=== PATIENT | female | born 1955 | race Hispanic/Latino ===

== ENCOUNTER 2017-11-04 07:06 | Observation (INO) | payer MEDICARE, OTHER ==
[2017-11-04 07:07] VITALS: BMI 40.0
[2017-11-04 08:16] LABS: BASO # 0.05 K/mm3 (0.0-2.0); BASO % 0.7 % (0.0-3.0); EOS # 0.2 (0.0-0.7); EOS % 2.1 % (1.5-5.0); GRAN # 3.77 (1.4-6.5); GRAN % 50.5 % (50.0-68.0); HEMOGLOBIN 9.7 g/dL (12.0-16.0); LYMPH # 3.1 (1.2-3.4); LYMPH % 41.3 % (22.0-35.0); MEAN CELL VOLUME 89.8 fl (80.0-105.0); MEAN CORPUSCULAR HEMOGLOBIN 26.9 pg (25.0-35.0); MEAN CORPUSCULAR HGB CONC 29.9 g/dl (31.0-37.0); MEAN PLATELET VOLUME 8.6 fl (7.0-11.0); MONO # 0.4 (0.1-0.6); MONO % 5.4 % (1.0-6.0); RBC 3.61 10^6/uL (3.5-6.1); RED CELL DISTRIBUTION WIDTH 15.7 % (11.5-14.5); WHITE BLOOD COUNT 7.5 10^3/ul (4.5-11.0)
[2017-11-04 08:35] LABS: ALT/SGPT 30 U/L (7-56); AST/SGOT 21 U/L (14-36); BLOOD UREA NITROGEN 16 mg/dL (7-21); CALCIUM 9.2 mg/dL (8.4-10.5); GFR AFRICAN-AMERICAN > 60; GFR NON-AFRICAN AMERICAN 56
--- NOTE | 2017-11-04 08:41 | RAD ---
HISTORY: chest pain COMPARISON: Portable chest 03/21/2015. FINDINGS: LUNGS: Limited patchy density has developed at the right base without silhouetting the right heart border or the right hemidiaphragm. No interval left-sided infiltrate. PLEURA: No significant pleural effusion identified, no pneumothorax apparent. CARDIOVASCULAR: Cardiac silhouette appears prominent. Frontal technique magnifies true size though cardiomegaly is not completely excluded. No definite pulmonary vascular derangement appreciable. No significant change in cardiac appearance. OSSEOUS STRUCTURES: No significant abnormalities. VISUALIZED UPPER ABDOMEN: Normal. OTHER FINDINGS: None. IMPRESSION: Limited patchy infiltrate right base with remaining lung dalal clear. Stable probable mild cardiomegaly.
[2017-11-04 08:44] LABS: B-TYPE NATRIURETIC PEPTIDE 334 pg/mL (0-450); TROPONIN I 0.02 ng/mL
[2017-11-04] MEDS ORDERED: Alum-Mag Hydrox-Simethicone Susp (30 mL) PO STA (09:26)
[2017-11-04] MEDS ORDERED: Iohexol 350 MG/100 ML VIAL ONE (11:53)
--- NOTE | 2017-11-04 12:31 | CT ---
PROCEDURE: CT Abdomen and Pelvis with contrast HISTORY: upper abdominal pain COMPARISON: None. TECHNIQUE: Following the intravenous administration of iodinated contrast material, a CT examination of the abdomen and pelvis performed from the domes of the diaphragms to the symphysis pubis with reformatted datasets provided not only axial but also sagittal and coronal planes. Oral contrast was not administered as per referring physician request. Contrast dose: Omnipaque 350, 100 cc. Radiation dose: Total exam DLP = 911.49 mGy-cm. This CT exam was performed using one or more of the following dose reduction techniques: Automated exposure control, adjustment of the mA and/or kV according to patient size, and/or use of iterative reconstruction technique. FINDINGS: LOWER THORAX: Limited linear atelectasis or fibrosis left base with remainder remarkable only for cardiomegaly. . LIVER: Diffuse hepatic lucency is appreciate with hepatic steatosis. No intrahepatic biliary dilatation or definite delete hepatic mass evident. GALLBLADDER AND BILE DUCTS: Unremarkable. PANCREAS: Unremarkable. No gross lesion or ductal dilatation. SPLEEN: Unremarkable. ADRENALS: Unremarkable. No mass. KIDNEYS AND URETERS: Unremarkable. No hydronephrosis. No solid mass. VASCULATURE: Unremarkable. No aortic aneurysm. BOWEL: Limited sigmoid diverticular changes, nonacute. No obstruction. No gross mural thickening. APPENDIX: Normal appendix. PERITONEUM: Unremarkable. No free fluid. No free air. LYMPH NODES: Unremarkable. No enlarged lymph nodes. BLADDER: Unremarkable. REPRODUCTIVE: Unremarkable. BONES: No acute fracture. OTHER FINDINGS: None. IMPRESSION: Hepatic steatosis. Minimal sigmoid diverticulosis without acute changes.
[2017-11-04 14:52] VITALS: RESP 20
--- NOTE | 2017-11-04 18:35 | ED PDOC ---
Arrival/HPI - General Chief Complaint: Chest Pain Time Seen by Provider: 11/04/17 07:18 Historian: Patient - History of Present Illness Narrative History of Present Illness (Text): 11/04/17 7:15 62 year old female, with past medical history of 9 cardiac stents, presents to the Emergency department complaining of chest pain since 3:45am this morning. Patient informs taking 81mg aspiring and nitroglycerin with little improvement to her symptoms. Patient denies any recent cardiac work-up. Patient denies any fever, chills, nausea, vomiting, diarrhea, abdominal pain, shortness of breath, trauma or any other complaints. PMD: Time/Duration: 4-6 hours Symptom Onset: Gradual Symptom Course: Unchanged Quality: Aching Activities at Onset: Sleeping Context: Home Past Medical History - Provider Review Nursing Documentation Reviewed: Yes - Infectious Disease Hx of Infectious Diseases: None - Tetanus Immunization Tetanus Immunization: Unknown - Reproductive Menopause: Yes - Cardiac Hx Cardiac Disorders: Yes Hx Angina: Yes Hx Congestive Heart Failure: Yes (03-21-15) Hx Peripheral Edema: Yes - Pulmonary Hx Respiratory Disorders: Yes Hx Bronchitis: Yes - Neurological Hx Neurological Disorder: No - HEENT Hx HEENT Disorder: Yes (WEARS RX GLASSES) - Renal Hx Renal Disorder: No - Endocrine/Metabolic Hx Endocrine Disorders: No - Hematological/Oncological Hx Blood Disorders: Yes Hx Anemia: Yes - Integumentary Hx Dermatological Disorder: No - Musculoskeletal/Rheumatological Hx Falls: Yes - Gastrointestinal Hx Gastrointestinal Disorders: Yes Hx Gastroesophageal Reflux: Yes Other/Comment: obesity - Genitourinary/Gynecological Hx Genitourinary Disorders: No - Psychiatric Hx Psychophysiologic Disorder: Yes (SMOKED CIGARETTES) Hx Anxiety: Yes Hx Bipolar Disorder: No Hx Depression: Yes Hx Emotional Abuse: No Hx Hallucinations: No Hx Panic Disorder: Yes Hx Post Traumatic Stress Disorder: No Hx Psychosis: No Hx Physical Abuse: No Hx Schizophrenia: No Hx Sexual Abuse: No Hx Substance Use: No - Surgical History Hx Cardiac Catheterization: Yes Hx Coronary Stent: Yes (8 stents) Other/Comment: ex lap, colonoscopy, endo - Anesthesia Hx Anesthesia: Yes Hx Anesthesia Reactions: No Hx Malignant Hyperthermia: No - Suicidal Assessment Plan: No Family/Social History - Physician Review Nursing Documentation Reviewed: Yes Family/Social History: No Known Family HX Smoking Status: Former Smoker Hx Alcohol Use: No Hx Substance Use: No Hx Substance Use Treatment: No Allergies/Home Meds Allergies/Adverse Reactions: Allergies No Known Allergies Allergy (Verified 11/04/17 07:13) Home Medications: Home Meds Medication Instructions Recorded Confirmed Acetaminophen [Tylenol] 650 mg PO PRN PRN 07/29/14 11/04/17 [id number] [Diltiazem HCl] 30 mg PO QID 02/06/15 11/04/17 Pantoprazole Sodium [Protonix] 40 mg PO BID 03/25/15 11/04/17 Tiotropium [Spiriva] 18 mcg IH DAILY 03/25/15 11/04/17 Aspirin [Ecotrin] 81 mg PO DAILY 11/04/17 11/04/17 Clonazepam [Klonopin] 1 mg PO QAM 11/04/17 11/04/17 Clonazepam [Klonopin] 3 mg PO HS 11/04/17 11/04/17 Review of Systems - Review of Systems Constitutional: Normal. absent: Fevers Eyes: Normal ENT: Normal Respiratory: Normal. absent: SOB Cardiovascular: Chest Pain Gastrointestinal: Normal. absent: Abdominal Pain, Diarrhea, Nausea, Vomiting Genitourinary Female: Normal Musculoskeletal: Normal Skin: Normal Neurological: Normal Endocrine: Normal Hemo/Lymphatic: Normal Psychiatric: Normal Physical Exam Vital Signs Reviewed: Yes Vital Signs Temp Pulse Resp BP Pulse Ox 11/04/17 11:00 77 18 146/78 98 11/04/17 09:07 78 18 152/78 H 98 11/04/17 07:07 97.9 F 81 18 128/47 L 97 Temperature: Afebrile Blood Pressure: Normal Pulse: Regular Respiratory Rate: Normal Appearance: Positive for: Well-Appearing, Non-Toxic, Comfortable Pain Distress: None Mental Status: Positive for: Alert and Oriented X 3 - Systems Exam Head: Present: Atraumatic, Normocephalic Pupils: Present: PERRL Extroacular Muscles: Present: EOMI Conjunctiva: Present: Normal Mouth: Present: Moist Mucous Membranes Neck: Present: Normal Range of Motion Respiratory/Chest: Present: Clear to Auscultation, Good Air Exchange. No: Respiratory Distress, Accessory Muscle Use Cardiovascular: Present: Regular Rate and Rhythm, Normal S1, S2. No: Murmurs Abdomen: Present: Normal Bowel Sounds. No: Tenderness, Distention, Peritoneal Signs Back: Present: Normal Inspection Upper Extremity: Present: Normal Inspection. No: Cyanosis, Edema Lower Extremity: Present: Normal Inspection. No: Edema Neurological: Present: GCS=15, CN II-XII Intact, Speech Normal Skin: Present: Warm, Dry, Normal Color. No: Rashes Psychiatric: Present: Alert, Oriented x 3, Normal Insight, Normal Concentration Medical Decision Making ED Course and Treatment: 11/04/17 7:20 Impression: 62 year old female presents to the Emergency department for chest pain. Plan: -- CT of Abd/Pelvis -- EKG -- Labs -- Chest X-ray -- Cardizem -- Reassess and disposition Progress Notes: 11/04/17 8:[address] Wei, who saw patient at her bedside. PMD is aware and agrees with plan to admit patient to telemetry/observation. - Lab Interpretations Lab Results: 11/04/17 08:00 11/04/17 08:00 Lab Results 11/04/17 11:00: Troponin I 0.07 D 11/04/17 08:00: Sodium 138, Potassium 3.9, Chloride 101, Carbon Dioxide 25, Anion Gap 16, BUN 16, Creatinine 1.0, Est GFR ( Amer) > 60, Est GFR (Non- Af Amer) 56, Random Glucose 102, Calcium 9.2, Magnesium 2.1, Total Bilirubin 0.2 , AST 21, ALT 30, Alkaline Phosphatase 117, Lactate Dehydrogenase 439, Total Creatine Kinase 111, Troponin I 0.02 D, NT-Pro-B Natriuret Pep 334, Total Protein 7.8, Albumin 4.0, Globulin 3.8, Albumin/Globulin Ratio 1.0 L 11/04/17 08:00: WBC 7.5, RBC 3.61, Hgb 9.7 L, Hct 32.4 L, MCV 89.8, MCH 26.9, MCHC 29.9 L, RDW 15.7 H, Plt Count 404, MPV 8.6, Gran % 50.5, Lymph % (Auto) 41.3 H, [place] % (Auto) 5.4, Eos % (Auto) 2.1, Baso % (Auto) 0.7, Gran # 3.77, Lymph # (Auto) 3.1, [place] # (Auto) 0.4, Eos # (Auto) 0.2, Baso # (Auto) 0.05 - RAD Interpretation Narrative RAD Interpretations (Text): 11/04/17 7:30 Chest X-ray reviewed by radiologist, shows limited patchy infiltrate right base with remaining lung dalal clear. Stable probable mild cardiomegaly. 11/04/17 7:35 CT of Abdomen/Pelvis reviewed, shows hepatic steatosis. Minimal sigmoid diverticulosis without acute changes. Radiology Orders: 11/04/17 07:19 CHEST PORTABLE [RAD] Stat 11/04/17 11:07 ABD & PELVIS IV CONTRAST ONLY [CT] Stat Saw Setter: Radiologist - Medication Orders Current Medication Orders: Acetaminophen (Tylenol 325mg Tab) 650 mg PO Q4H PRN PRN Reason: Pain, Mild (1-3) Last Admin: 11/04/17 17:22 Dose: 650 mg MAR Pain/Vitals Document 11/04/17 17:22 RDS (Rec: 11/04/17 17:22 [place] [id number]) Pain Reassessment Is This A Pain ReAssessment? No Presence of Pain Presence of Pain Yes Location Left, Right or Bilateral Right Pain Location Body Site Hip Intensity 3 Re-Assess: MAR Pain/Vitals Document 11/04/17 18:22 RDS (Rec: 11/04/17 18:37 [place] [id number]) Pain Reassessment Is This A Pain ReAssessment? Yes Sleep Is patient sleeping during reassessment? No Presence of Pain Presence of Pain No Aspirin (Ecotrin) 81 mg PO DAILY RUPERTO Clonazepam (Klonopin) 1 mg PO BID RUPERTO PRN Reason: Protocol Last Admin: 11/04/17 17:21 Dose: 1 mg Behavioural Document 11/04/17 17:21 RDS (Rec: 11/04/17 17:21 [place] [id number]) Maintenance Maintenance Dose Yes Nonmedicinal Nonmedicinal Interventions Redirect Therapeutic Communication Behavior Behavior for Medication: Anxiety Re-Assess: Reassess Psych Meds Document 11/04/17 18:21 RDS (Rec: 11/04/17 18:37 [place] [id number]) Reassess Psych Med Effective Clonazepam (Klonopin) 2 mg PO HS RUPERTO PRN Reason: Protocol Diltiazem HCl (Cardizem) 30 mg PO QID RUPERTO Last Admin: 11/04/17 18:37 Dose: 30 mg MAR Pulse and Blood Pressure Document 11/04/17 18:37 RDS (Rec: 11/04/17 18:37 RDS [id number]) Pulse Pulse Rate (60-90) 84 Blood Pressure Blood Pressure (100/60-150/90) 149/73 Pantoprazole Sodium (Protonix Ec Tab) 20 mg PO ACB RUPERTO Tiotropium [place] (Spiriva) 18 mcg IH DAILY RUPERTO Last Admin: 11/04/17 18:37 Dose: 18 mcg Discontinued Medications Al Hydrox/Mg Hydrox/Simethicone (Maalox Plus 30 Ml) 30 ml PO STAT STA Stop: 11/04/17 09:27 Last Admin: 11/04/17 09:38 Dose: 30 ml - Scribe Statement The provider has reviewed the documentation as recorded by the Manfredibwendi Jennings. All medical record entries made by the Manfredibwendi were at my direction and personally dictated by me. I have reviewed the chart and agree that the record accurately reflects my personal performance of the history, physical exam, medical decision making, and the department course for this patient. I have also personally directed, reviewed, and agree with the discharge instructions and disposition. Disposition/Present on Arrival - Present on Arrival Any Indicators Present on Arrival: No History of DVT/PE: No History of Uncontrolled Diabetes: No Urinary Catheter: No History of Decub. Ulcer: No History Surgical Site Infection Following: None - Disposition Have Diagnosis and Disposition been Completed?: Yes Diagnosis: Chest pain Disposition: HOSPITALIZED Disposition Time: 08:45 Condition: STABLE
[2017-11-04] MEDS: Tiotropium 18 mcg Cap For Inhalation IH SCH (18:37)
--- NOTE | 2017-11-04 23:29 | CARD ---
APPROVED REPORT EKG Measurement Heart [id number] <Conclusion> Normal sinus rhythm Prolonged QT Abnormal ECG
--- NOTE | 2017-11-04 23:31 | CARD ---
APPROVED REPORT EKG Measurement Heart [id number] <Conclusion> Normal sinus rhythm Possible Left atrial enlargement Prolonged QT Abnormal ECG
--- NOTE | 2017-11-05 05:38 | HP ---
DATE OF EXAM: 11/04/2017 CHIEF COMPLAINT: Chest pain. 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 She describes the pain was in the left chest wall, more in the pectoralis area, sometimes tender with touch and fleeting. It will last for a few seconds and then return. There was no diaphoresis, palpitations, nausea, vomiting, syncope, lightheadedness, and dizziness. Because of her anxieties and history of coronary artery disease and multiple risk factors, she came to the emergency room, was evaluated. Troponins were unremarkable. Labs were normal. EKG was unremarkable and unchanged, and so she was held until I could evaluate her in the morning. After unremarkable evaluation and history, there was low suspicion for these symptoms being of cardiac origin. A repeat EKG and repeat troponins were done. EKG was essentially unchanged; however, the troponin shola to the equivocal range, prompting this admission. PAST MEDICAL HISTORY: Positive for herniated disk, left foot drop, obesity, rather severe anxiety disorder and depression. She is status post PTCA and reports that she has 9 coronary artery [address] in place. She also has a history of osteoarthritis. ALLERGIES: SHE HAS NO KNOWN ALLERGIES TO MEDICATIONS; HOWEVER, SHE HAS MULTIPLE MEDICATION SENSITIVITIES. MEDICATIONS AT CURRENT ADMISSION: Include aspirin daily, clonazepam 3 mg at bedtime and 1 mg during the day, Prevacid, and diltiazem 30 mg four times a day. SOCIAL HISTORY: She is . She does not smoke, although there is a history of tobacco use up until just the recent years, and does not drink alcohol. REVIEW OF SYSTEMS: Negative except for items mentioned above related to coronary artery disease, chest pain, exertional dyspnea, arthritis, generalized weakness, fatigue and anxiety related to her mental health issues, anxiety and depression. PHYSICAL EXAMINATION: GENERAL: The patient was seen in the emergency room with her at the bedside. She is awake, alert, clear, appropriate, anxious at baseline. HEENT: Head and neck are unremarkable. Conjunctivae are pink. Mucous membranes are moist. NECK: Supple without masses. Thyroid was not palpable. LUNGS: Show good aeration, right and left, with no rales or wheezes. HEART: Regular, not tachycardic. BREASTS: Not examined. ABDOMEN: Obese, soft and nontender. EXTREMITIES: Showed no edema with palpable, but decreased dorsalis pedis and posterior tibial pulses. NEUROLOGIC: She is awake and alert with no focal neurologic deficits. LABORATORY DATA: Review of the lab showed white count to be normal, H and H are 9.7 and 32. Chemistries were unremarkable. Initial troponin was 0.02 and repeat was 0.07, in the indeterminate range. IMPRESSION: 1. Chest pain, although atypical, in a patient with history of coronary artery disease and multiple risk factors and rising troponin in the ER. 2. Anxiety. 3. Depression. 4. History of spinal stenosis. 5. Morbid obesity. 6. Hiatal hernia. 7. Reflux. 8. Chronic back pain. PLAN: We will admit to the monitor bed and do serial troponins. Check EKG and labs in the morning. Cardiology consult with Dr. Jamel Robbins, who knows her well. Todd Wei MD MTDGrady
[2017-11-05 05:51] VITALS: O2SAT 96
[2017-11-05 06:46] LABS: HEMOGLOBIN 9.6 g/dL (12.0-16.0); MEAN CELL VOLUME 89.5 fl (80.0-105.0); MEAN CORPUSCULAR HEMOGLOBIN 26.6 pg (25.0-35.0); MEAN CORPUSCULAR HGB CONC 29.7 g/dl (31.0-37.0); MEAN PLATELET VOLUME 8.8 fl (7.0-11.0); RBC 3.61 10^6/uL (3.5-6.1); RED CELL DISTRIBUTION WIDTH 15.6 % (11.5-14.5)
[2017-11-05 07:00] LABS: BLOOD UREA NITROGEN 12 mg/dL (7-21); CALCIUM 9.2 mg/dL (8.4-10.5); GFR AFRICAN-AMERICAN > 60; GFR NON-AFRICAN AMERICAN > 60
[2017-11-05 07:08] LABS: TROPONIN I 0.04 ng/mL
[2017-11-05] MEDS ORDERED: Pantoprazole 20 mg EC Tab PO SCH (07:30)
[2017-11-05] MEDS: Tiotropium 18 mcg Cap For Inhalation IH SCH (09:18)
[2017-11-05] MEDS ORDERED: Tiotropium 18 mcg Cap For Inhalation IH SCH (10:00)
[2017-11-05 12:25] VITALS: TEMP 97.8
[2017-11-05 13:16] VITALS: BP 150/78
[2017-11-05 14:40] VITALS: PULSE 93
--- NOTE | 2017-11-05 22:39 | CON ---
DATE: 11/05/2017 REQUESTING PHYSICIAN: Dr. Wei. REASON FOR CONSULTATION: Chest pain. HISTORY OF PRESENT ILLNESS: This is a 62-year-old woman well known to me from multiple admissions in the past with known coronary artery disease, status post prior PCI, who was admitted with chest discomfort. She has a fairly complex coronary artery disease and underwent PCI of her RCA in 2009. LAD PCI was performed at that time. In 2011, a repeat PCI of both vessels were performed. Her last catheterization was performed in 2013 at which time her right coronary artery was noted to be occluded with extensive [id number] collaterals. She had [id number] LAD and left circumflex system disease at that time. Ejection fraction was normal. She has been treated medically. She has a history of severe, debilitating anxiety and depression, which has caused a great deal of problems for her in the recent past. She also has severe hip arthritis and finds it difficulty to ambulate. She had one brief episode of chest discomfort several days ago at rest. The evening prior to admission, she had a more intense episode, which she feels was very similar to her previous angina pattern. She took several sublingual nitroglycerin with partial relief and became very anxious and presented to the emergency room. Upon arrival, electrocardiogram is unremarkable and cardiac enzymes have been negative. She has had no further chest pain. She denies any exertional symptoms other than some dyspnea when climbing stairs. She has no exertional chest pain. PAST MEDICAL HISTORY: Her past history is notable for the problems mentioned above. She also has a history of hypertension, hyperlipidemia, gastroesophageal reflux disease, recurrent bronchitis, lumbar disk disease, and hip arthritis. MEDICATIONS: Her current medications include diltiazem 30 mg 4 times a day, aspirin once daily, Klonopin 1 mg b.i.d. and 2 mg at bedtime, Protonix 20 mg daily, and Spiriva. ALLERGIES: SHE HAS HAD SENSITIVITIES TO MULTIPLE MEDICATIONS INCLUDING MYALGIAS WITH ALL STATINS WELL A SENSITIVITY WITH BETA-YESI USE IN THE PAST. SOCIAL HISTORY: She is and lives with her . She is a former smoker. She denies alcohol use. FAMILY HISTORY: Her father at the age of 86 from cardiac and renal disease. Mother at the age of 88 from heart disease and Alzheimer disease. One sister has severe premature heart disease. REVIEW OF SYSTEMS: Ten-point review of systems is notable for problems as mentioned above. PHYSICAL EXAMINATION: GENERAL: She is an anxious-appearing middle-aged woman. VITAL SIGNS: Her blood pressure is 140/70 with a pulse of 86, in sinus; respirations are 16. She is afebrile. HEENT: Normocephalic, atraumatic. NECK: Supple. No JVD noted. CHEST: A few scattered rhonchi heard. HEART: PMI displaced laterally with no pathological rubs or gallops noted. ABDOMEN: Soft, obese, nontender. Normoactive bowel sounds. EXTREMITIES: No clubbing, cyanosis, or edema. SKIN: Warm and dry. PSYCHIATRIC: Moderate anxiety, otherwise normal mood and affect. NEUROLOGIC: Alert and oriented x3. No gross motor or sensory deficits are appreciable. DIAGNOSTIC DATA: White count is 8, hemoglobin and hematocrit 9.6 and 32.3, and platelet count of 396,000. Potassium is 3.9, BUN and creatinine are 12 and 0.8. Three sets of cardiac enzymes appear unremarkable ranging from 0.02 to 0.07 and then repeat is 0.04. Electrocardiogram reveals sinus rhythm with no acute abnormalities. Chest x-ray reveals normal cardiac silhouette with some bibasilar atelectasis. CT abdomen reveals hepatic steatosis as well as diverticulosis. IMPRESSION: 1. Recent chest pain, unclear if this is truly angina in nature given her lack of exertional symptoms and no clear evidence of acute cardiac injury by blood work or electrocardiogram. 2. Known coronary artery disease, status post multivessel percutaneous coronary intervention with known occluded right coronary artery, well collateralized. 3. Rest of problems as noted. RECOMMENDATIONS: From a cardiac standpoint, she appears stable for discharge home at this time. If she has recurrent chest pain, reevaluation without a stress test and repeat catheterization can be planned. Aspirin and diltiazem dosing should continue at this time. She has been intolerant of other medications in the past. Sublingual nitroglycerin use as needed is advised. Outpatient followup will be arranged. Thank you for this consultation. We will be happy to follow along as needed. Jamel Robbins MD
--- NOTE | 2017-11-06 03:04 | DS ---
HISTORY OF PRESENT ILLNESS: This is a 62-year-old woman with a history of coronary artery disease and multiple cardiac stents, who awoke at 3 in the morning on Monday with some atypical left chest pectoralis discomfort. Symptoms waxed and waned through the course of several hours, at which point her anxiety worsened prompting her to come to the emergency room. In the emergency room, EKG and labs were unremarkable. The pain was classified as atypical, but because of strong history of 9 stents, hyperlipidemia, tobacco use, and sensitivity to statins, she was monitored in the ER. I saw her in the morning. We agreed to repeat the troponins and EKG in a few hours, approximately 4 to 6 hours after presentation to the ER. EKG was unchanged, but troponin increased to indeterminate, so it was felt best to monitor her in overnight observation. Patient was admitted to the [facility] floor and her prior medications were continued. Cardiology consultation by Dr. Jamel Robbins was requested as he knows her as an outpatient. Her night was uneventful and she had no further episodes of chest pain or chest discomfort. In the morning, labs and troponin was negative, EKGs were unchanged, and so she was ready for discharge to home. FINAL DISCHARGE DIAGNOSES: 1. Atypical chest pain. 2. History of coronary artery disease. 3. Severe anxiety neurosis. 4. Depression. 5. Osteoarthritis. 6. History of herniated disc and left foot drop. 7. Multiple medication sensitivities. PLAN: Patient was discharged to home and reassured and she was offered a trial of Celebrex 50 mg for her arthritis and back pain. She will follow up with us and with Cardiology within 2 weeks time and continue her medications as above. Todd Wei MD
== END 2017-11-05 14:03 | disposition home or self-care (01) ==
LOC: ED 07:06 → ERH 11:48 → 3RSO 12:55
PROVIDERS: ADMIT Internal Medicine; ATTEND Internal Medicine
DX: R07.89 Other chest pain (principal); I25.10 Atherosclerotic heart disease of native coronary artery without angina pectoris; F41.1 Generalized anxiety disorder; F32.9 Major depressive disorder, single episode, unspecified; E78.5 Hyperlipidemia, unspecified; K44.9 Diaphragmatic hernia without obstruction or gangrene; K21.9 Gastro-esophageal reflux disease without esophagitis; E66.01 Morbid (severe) obesity due to excess calories; G89.29 Other chronic pain; M54.9 Dorsalgia, unspecified; I10 Essential (primary) hypertension; Z79.82 Long term (current) use of aspirin; Z95.5 Presence of coronary angioplasty implant and graft; Z87.891 Personal history of nicotine dependence
CPT/HCPCS: 36415; 71045; 74177; 80048; 80053; 82550; 83615; 83735; 83880; 84484; 85025; 85027; 93005; 99285; G0378; Q9967

== ENCOUNTER 2017-12-20 06:53 | Inpatient (IN) | payer MEDICARE, OTHER ==
[2017-12-20 07:00] VITALS: BMI 45.1
--- NOTE | 2017-12-20 07:56 | ED PDOC ---
Arrival/HPI - General Chief Complaint: Shortness Of Breath Time Seen by Provider: 12/20/17 07:21 Historian: Patient - History of Present Illness Narrative History of Present Illness (Text): 12/20/17 07:52 A 62 year old female, whose past medical history includes angina, 9 cardiac stents, COPD, and anxiety, presents to the emergency department complaining of shortness of breath since this morning. Patient notes mild epigastric discomfort , which she describes as tightness. Patient also notes right hip pain from fall a week ago but denies any fever, chills, nausea, vomiting, urinary symptoms, chest pain, cough or any other complaints. PMD: Dr. Wei Time/Duration: Other (this morning) Symptom Course: Unchanged Context: Home Past Medical History - Provider Review Nursing Documentation Reviewed: Yes - Infectious Disease Hx of Infectious Diseases: None - Tetanus Immunization Tetanus Immunization: Unknown - Reproductive Menopause: Yes - Cardiac Hx Cardiac Disorders: Yes Hx Angina: Yes Hx Congestive Heart Failure: Yes (03-21-15) Hx Peripheral Edema: Yes Other/Comment: p stents 4 in rca 1 in lad 2009 2 rca /2 2011 - Pulmonary Hx Respiratory Disorders: Yes Hx Bronchitis: Yes - Neurological Hx Neurological Disorder: No - HEENT Hx HEENT Disorder: Yes (WEARS RX GLASSES) - Renal Hx Renal Disorder: No - Endocrine/Metabolic Hx Endocrine Disorders: No - Hematological/Oncological Hx Blood Disorders: Yes Hx Anemia: Yes - Integumentary Hx Dermatological Disorder: No - Musculoskeletal/Rheumatological Hx Arthritis: Yes (rt hip) Hx Falls: Yes Other/Comment: herniated lumbar discs - Gastrointestinal Hx Gastrointestinal Disorders: Yes Hx Gastroesophageal Reflux: Yes Other/Comment: obesity - Genitourinary/Gynecological Hx Genitourinary Disorders: No - Psychiatric Hx Psychophysiologic Disorder: Yes (SMOKED CIGARETTES) Hx Anxiety: Yes Hx Bipolar Disorder: No Hx Depression: Yes Hx Emotional Abuse: No Hx Hallucinations: No Hx Panic Disorder: Yes Hx Post Traumatic Stress Disorder: No Hx Psychosis: No Hx Physical Abuse: No Hx Schizophrenia: No Hx Sexual Abuse: No Hx Substance Use: No - Surgical History Hx Cardiac Catheterization: Yes Hx Coronary Stent: Yes (8 stents) Other/Comment: ex lap, colonoscopy, endo - Anesthesia Hx Anesthesia: Yes Hx Anesthesia Reactions: No Hx Malignant Hyperthermia: No - Suicidal Assessment Feels Threatened In Home Enviroment: No Family/Social History - Physician Review Nursing Documentation Reviewed: Yes Family/Social History: No Known Family HX Smoking Status: Former Smoker Hx Alcohol Use: No Hx Substance Use: No Hx Substance Use Treatment: No Allergies/Home Meds Allergies/Adverse Reactions: Allergies epinephrine Allergy (Verified 12/20/17 07:11) ANAPHYLAXIS Home Medications: Home Meds Medication Instructions Recorded Confirmed Acetaminophen [Tylenol] 650 mg PO PRN PRN 07/29/14 12/20/17 [id number] [Cardizem] 30 mg PO QID 02/06/15 12/20/17 Pantoprazole Sodium [Protonix] 40 mg PO BID 03/25/15 12/20/17 Tiotropium [Spiriva] 18 mcg IH DAILY 03/25/15 12/20/17 Aspirin [Ecotrin] 81 mg PO DAILY 11/04/17 12/20/17 Clonazepam [Klonopin] 1 mg PO QAM 11/04/17 12/20/17 Clonazepam [Klonopin] 3 mg PO HS 11/04/17 12/20/17 Nitroglycerin [Nitrotab] 0.4 mg SL Q5MIN PRN 12/20/17 12/20/17 Review of Systems - Physician Review All systems were reviewed & negative as marked: Yes - Review of Systems Constitutional: absent: Fevers, Night Sweats Respiratory: SOB. absent: Cough Cardiovascular: absent: Chest Pain Gastrointestinal: Abdominal Pain (epigastric tightness). absent: Nausea, Vomiting Genitourinary Female: absent: Dysuria, Frequency, Hematuria Physical Exam - Physical Exam Narrative Physical Exam (Text): Constitutional: No acute distress. Head: Normocephalic. Atraumatic. Eyes: PERRL. ENT: Moist mucous membranes. Neck: Supple. No JVD. Cardiovascular: Regular rate. Chest: No tenderness. Respiratory: Bibasilar crackles. 92% pulse ox symmetry on room air. GI: Epigastric and RUQ tenderness. No guarding. Soft. Nondistended. Back: No CVA tenderness. Musculoskeletal: Bilateral pitting edema. No tenderness of extremities. Skin: No rash. Neurologic: Alert, no focal deficit. Vital Signs Reviewed: Yes Vital Signs Temp Pulse Resp BP Pulse Ox 12/20/17 10:24 98.1 F 77 19 158/50 H 100 12/20/17 09:30 71 19 98 12/20/17 08:37 97.9 F 81 18 186/78 H 100 12/20/17 07:43 18 100 12/20/17 07:11 97.3 F L 83 24 148/70 100 Temperature: Afebrile Blood Pressure: Normal Pulse: Regular Respiratory Rate: Normal Appearance: Positive for: Well-Appearing, Non-Toxic, Comfortable Pain Distress: None Mental Status: Positive for: Alert and Oriented X 3 Medical Decision Making ED Course and Treatment: 12/20/17 07:52 Impression: A 62 year old female with shortness of breath. Patient notes epigastric discomfort and old right hip pain. Differential Diagnosis included but are not limited to: CHF exacerbation vs. PE vs. ACS vs. Unlikely COPD exacerbation vs. Unlikely PNA Plan: -- Chest xray -- Right hip xray -- EKG -- Labs -- Urine culture and Urinalysis -- Reassess and disposition Progress Notes: EKG shows NSR at [address]/T wave changes, normal axis. Interpreted by me. Report Date : 12/20/2017 11:03:18 PROCEDURE: CT Chest with contrast (Pulmonary Angiogram) Dictator : Neftaly Blanco MD IMPRESSION: No evidence of pulmonary embolus. Report Date : 12/20/2017 12:39:51 Procedure: Chest xray Dictator : Neftaly Blanco MD IMPRESSION: Right lower lobe infiltrate Report Date : 12/20/2017 12:57:08 PROCEDURE: Right Hip Radiographs. Dictator : Neftaly Blanco MD IMPRESSION: There is severe joint space narrowing in the right hip. There is some bony sclerosis and subchondral cyst formation. Anemia present. Guaiac negative. Epigastric tenderness now gone. Patient took Aspirin 324 prior to arrival today. Dr. Wei accepts patient to his service. - Lab Interpretations Lab Results: 12/20/17 07:33 12/20/17 07:33 Lab Results 12/20/17 08:45: Urine Color Yellow, Urine Appearance Clear, Urine pH 6.0, Ur Specific [place] 1.025, Urine Protein 30 H, Urine Glucose (UA) Negative, Urine Ketones Negative, Urine Blood Trace-intact H, Urine Nitrate Negative, Urine Bilirubin Negative, Urine Urobilinogen 0.2, Ur Leukocyte Esterase Negative, Urine RBC 1 - 3, Urine WBC 0 - 2, Ur Epithelial Cells 4 - 5, Urine Bacteria Mod 12/20/17 07:37: Blood Type A POSITIVE, Antibody Screen Negative, BBK History Checked Patient has bt 12/20/17 07:33: pO2 43, VBG pH 7.28 L, VBG pCO2 63.0 H, VBG HCO3 29.6 H, VBG O2 Sat (Calc) 77.0 H, VBG Base Excess 1.2 12/20/17 07:33: Sodium 144, Potassium 3.5 L, Chloride 103, Carbon Dioxide 29, Anion Gap 16, BUN 13, Creatinine 0.8, Est GFR ( Amer) > 60, Est GFR (Non- Af Amer) > 60, Random Glucose 128 H, Calcium 8.2 L, Total Bilirubin 0.1 L, AST 32, ALT 29, Alkaline Phosphatase 102, Total Creatine Kinase 76, Troponin I 0.04 , NT-Pro-B Natriuret Pep 366, Total Protein 7.4, Albumin 3.9, Globulin 3.5, Albumin/Globulin Ratio 1.1, Lipase 118 12/20/17 07:33: PT 11.4, INR 0.99, APTT 29.7, D-Dimer, Quantitative 369 H 12/20/17 07:33: WBC 6.2 D, RBC 3.49 L, Hgb 8.9 L, Hct 30.9 L, MCV 88.5, MCH 25.5, MCHC 28.8 L, RDW 16.7 H, Plt Count 386, MPV 8.7, Gran % 57.4, Lymph % ( Auto) 33.6, [place] % (Auto) 6.1 H, Eos % (Auto) 2.4, Baso % (Auto) 0.5, Gran # 3.57, Lymph # (Auto) 2.1, [place] # (Auto) 0.4, Eos # (Auto) 0.2, Baso # (Auto) 0.03 - RAD Interpretation Radiology Orders: 12/20/17 07:54 CHEST PORTABLE [RAD] Stat 12/20/17 07:55 Hip Right [HIP MIN 2V W/ PELVIS RT] [RAD] Stat 12/20/17 09:12 ANGIO CHEST PE PROTOCOL [CT] Stat - Scribe Statement The provider has reviewed the documentation as recorded by the Manfredibwendi Carter Provider Scribe Attestation: All medical record entries made by the Scribe were at my direction and personally dictated by me. I have reviewed the chart and agree that the record accurately reflects my personal performance of the history, physical exam, medical decision making, and the department course for this patient. I have also personally directed, reviewed, and agree with the discharge instructions and disposition. Disposition/Present on Arrival - Present on Arrival Any Indicators Present on Arrival: No History of DVT/PE: No History of Uncontrolled Diabetes: No Urinary Catheter: No History of Decub. Ulcer: No History Surgical Site Infection Following: None - Disposition Have Diagnosis and Disposition been Completed?: Yes Diagnosis: Dyspnea Disposition: HOSPITALIZED Disposition Time: 11:03 Patient Plan: Observation, Telemetry Patient Problems: Current Active Problems Problem Status Onset Dyspnea Acute Condition: FAIR
[2017-12-20 08:10] LABS: VENOUS BLOOD GAS BASE EXCESS 1.2 mmol/L (0.0-2.0); VENOUS BLOOD GAS PO2 43 mm/Hg (30-55); VENOUS BLOOD PH 7.28 (7.32-7.43)
[2017-12-20 08:12] LABS: BASO # 0.03 K/mm3 (0.0-2.0); BASO % 0.5 % (0.0-3.0); EOS # 0.2 (0.0-0.7); EOS % 2.4 % (1.5-5.0); GRAN # 3.57 (1.4-6.5); GRAN % 57.4 % (50.0-68.0); HEMOGLOBIN 8.9 g/dL (12.0-16.0); LYMPH # 2.1 (1.2-3.4); LYMPH % 33.6 % (22.0-35.0); MEAN CELL VOLUME 88.5 fl (80.0-105.0); MEAN CORPUSCULAR HEMOGLOBIN 25.5 pg (25.0-35.0); MEAN CORPUSCULAR HGB CONC 28.8 g/dl (31.0-37.0); MEAN PLATELET VOLUME 8.7 fl (7.0-11.0); MONO # 0.4 (0.1-0.6); MONO % 6.1 % (1.0-6.0); RBC 3.49 10^6/uL (3.5-6.1); RED CELL DISTRIBUTION WIDTH 16.7 % (11.5-14.5); WHITE BLOOD COUNT 6.2 10^3/ul (4.5-11.0)
[2017-12-20 08:19] LABS: ALB/GLOB RATIO 1.1 (1.1-1.8); ALBUMIN 3.9 g/dL (3.0-4.8); ALT/SGPT 29 U/L (7-56); AST/SGOT 32 U/L (14-36); BLOOD UREA NITROGEN 13 mg/dL (7-21); CALCIUM 8.2 mg/dL (8.4-10.5); GFR NON-AFRICAN AMERICAN > 60; LIPASE 118 U/L (23-300)
[2017-12-20 08:21] LABS: PROTHROMBIN TIME 11.4 SECONDS (9.4-12.5)
[2017-12-20 08:22] LABS: INR 0.99 (0.93-1.08); PARTIAL THROMBOPLASTIN TIME 29.7 Seconds (25.1-36.5)
[2017-12-20 08:30] LABS: B-TYPE NATRIURETIC PEPTIDE 366 pg/mL (0-450); TROPONIN I 0.04 ng/mL
[2017-12-20 08:52] LABS: URINE BILIRUBIN NEGATIVE (NEGATIVE); URINE BLOOD TRACE-INTACT (NEGATIVE); URINE GLUCOSE (UA) NEGATIVE (NEGATIVE); URINE LEUKOCYTE ESTERASE NEGATIVE Leu/uL (NEGATIVE); URINE PROTEIN 30 mg/dL (<30 mg/dL); URINE UROBILINOGEN 0.2 E.U./dL (<1 E.U./dL)
[2017-12-20 09:02] LABS: URINE APPEARANCE CLEAR (CLEAR); URINE COLOR YELLOW (YELLOW)
[2017-12-20 09:11] LABS: URINE WBC 0 - 2 /hpf (0-6)
[2017-12-20 09:12] LABS: URINE BACTERIA MOD (NEG)
[2017-12-20] MEDS ORDERED: Iohexol 350 MG/100 ML VIAL ONE (09:15)
--- NOTE | 2017-12-20 11:04 | CT ---
PROCEDURE: CT Chest with contrast (Pulmonary Angiogram) HISTORY: shortness of breath COMPARISON: None available. TECHNIQUE: Axial computed tomography images were obtained of the chest in the pulmonary arterial phase of enhancement. Coronal and sagittal reformatted images were created and reviewed. Intravenous contrast dose: 100 cc of Omni 350 Radiation dose: Total exam DLP = 538 mGy-cm. This CT exam was performed using one or more of the following dose reduction techniques: Automated exposure control, adjustment of the mA and/or kV according to patient size, and/or use of iterative reconstruction technique. FINDINGS: PULMONARY ARTERIES: Unremarkable. No pulmonary embolism. AORTA: No acute findings. No thoracic aortic aneurysm. Coronary artery calcifications LUNGS: There is some linear scarring or atelectasis at both lung bases. There is no focal consolidation. PLEURAL SPACES: Unremarkable. No effusion or pneuomothorax. HEART: Unremarkable. No cardiomegaly. No significant pericardial effusion. LYMPH NODES: No lymphadenopathy. BONES, CHEST WALL: Unremarkable. No fracture or destructive lesion OTHER FINDINGS: Unremarkable. IMPRESSION: No evidence of pulmonary embolus.
--- NOTE | 2017-12-20 12:41 | RAD ---
HISTORY: dyspnea COMPARISON: 11/04/2017 FINDINGS: LUNGS: Right lower lobe infiltrate similar to previous exam. PLEURA: No significant pleural effusion identified, no pneumothorax apparent. CARDIOVASCULAR: Normal. OSSEOUS STRUCTURES: No significant abnormalities. VISUALIZED UPPER ABDOMEN: Normal. OTHER FINDINGS: None. IMPRESSION: Right lower lobe infiltrate
--- NOTE | 2017-12-20 12:59 | RAD ---
PROCEDURE: Right Hip Radiographs. HISTORY: hip pain, fall 1 week ago COMPARISON: None. FINDINGS: BONES: Normal. No fracture. JOINTS: There is severe joint space narrowing in the right hip. There is some bony sclerosis and subchondral cyst formation. The left hip is unremarkable. SOFT TISSUES: Normal. OTHER FINDINGS: None. IMPRESSION: There is severe joint space narrowing in the right hip. There is some bony sclerosis and subchondral cyst formation.
--- NOTE | 2017-12-20 14:47 | CARD ---
APPROVED REPORT EKG Measurement Heart [id number] [place] [id number] <Conclusion> Normal sinus rhythm Possible Left atrial enlargement Prolonged QT STTW changes c/w ischemia
[2017-12-20] MEDS ORDERED: Pantoprazole 40 mg EC Tab PO ONE ×2 (15:09→20:00)
[2017-12-20] MEDS ORDERED: Pneumococcal 23-Valent Vaccine IM ONE (17:26)
[2017-12-20] MEDS: Pantoprazole 40 mg EC Tab PO SCH (18:45)
--- NOTE | 2017-12-21 01:51 | CP.PCM.PN ---
Subjective - Date & Time of Evaluation Date of Evaluation: 12/21/17 Time of Evaluation: 01:47 - Subjective Subjective: Nurse calls and tells that patient has sob,wheezing, pulse ox is 89 % on 2L/ min nasal canula, T: 99.2*F, BP 132/68, RR 18/min. I came and evaluated by bedside. Pulse ox is 84% on oxygen by nasal canula at 2L/min. She complains of sob, heaviness across lower anterior chest. Has no other complaints. Denies chest pain, nausea, sweating , palpitations. Complains of right hip pain. Medical record was reviewed. 62 year old white female is admitted for sob, mild epigastric discomfort/ tightness. Has PMH of CAD, obesity , coronary stent placement x 9, COPD, multiple drug allergies, CHF, anemia, arthritis, lumbar disc disease, former smoker, anxiety, depression. Objective - Vital Signs/Intake and Output Vital Signs (last 24 hours): Temp Pulse Resp BP Pulse Ox 99.2 F 74 20 132/68 98 12/20/17 23:42 12/20/17 23:42 12/20/17 23:42 12/20/17 23:42 12/20/17 23:42 - Medications Medications: Current Medications Acetaminophen (Tylenol 325mg Tab) 650 mg PO Q6H PRN PRN Reason: Pain, moderate (4-7) Aspirin (Ecotrin) 81 mg PO DAILY [facility] Clonazepam (Klonopin) 1 mg PO QAM [facility] PRN Reason: Protocol Clonazepam (Klonopin) 3 mg PO HS [facility] PRN Reason: Protocol Last Admin: 12/20/17 22:11 Dose: 3 mg Diltiazem HCl (Cardizem) 30 mg PO QID [facility] Last Admin: 12/20/17 23:05 Dose: 30 mg Docusate Sodium (Colace) 100 mg PO BID [facility] Last Admin: 12/20/17 18:53 Dose: 100 mg Ceftriaxone Sodium (Rocephin 1 Gram Ivpb) 1 gm in 100 mls @ 100 mls/hr IVPB DAILY [facility] PRN Reason: Protocol Nitroglycerin (Nitrostat Sl Tab) 0.4 mg SL Q5MIN PRN PRN Reason: Pain, moderate (4-7) Non-Formulary Medication (Celecoxib [Celebrex]) 50 mg PO DAILY [facility] Pantoprazole Sodium (Protonix Ec Tab) 40 mg PO BID [facility] Last Admin: 12/20/17 18:45 Dose: Not Given Tiotropium [place] (Spiriva) 18 mcg IH DAILY [facility] - Labs Labs: PT 11.4 SECONDS (9.4-12.5) 12/20/17 07:33 INR 0.99 (0.93-1.08) 12/20/17 07:33 APTT 29.7 Seconds (25.1-36.5) 12/20/17 07:33 Most Recent Lab Values WBC 7.3 10^3/ul (4.5-11.0) 12/21/17 02:20 RBC 3.17 10^6/uL (3.5-6.1) L 12/21/17 02:20 Hgb 8.1 g/dL (12.0-16.0) L 12/21/17 02:20 Hct 27.5 % (36.0-48.0) L 12/21/17 02:20 MCV 86.8 fl (80.0-105.0) 12/21/17 02:20 MCH 25.6 pg (25.0-35.0) 12/21/17 02:20 MCHC 29.5 g/dl (31.0-37.0) L 12/21/17 02:20 RDW 16.5 % (11.5-14.5) H 12/21/17 02:20 Plt Count 317 10^3/uL (120.0-450.0) 12/21/17 02:20 MPV 8.1 fl (7.0-11.0) 12/21/17 02:20 Gran % 51.7 % (50.0-68.0) 12/21/17 02:20 Lymph % (Auto) 37.5 % (22.0-35.0) H 12/21/17 02:20 [place] % (Auto) 7.6 % (1.0-6.0) H 12/21/17 02:20 Eos % (Auto) 2.9 % (1.5-5.0) 12/21/17 02:20 Baso % (Auto) 0.3 % (0.0-3.0) 12/21/17 02:20 Gran # 3.76 (1.4-6.5) 12/21/17 02:20 Lymph # (Auto) 2.7 (1.2-3.4) 12/21/17 02:20 [place] # (Auto) 0.6 (0.1-0.6) 12/21/17 02:20 Eos # (Auto) 0.2 (0.0-0.7) 12/21/17 02:20 Baso # (Auto) 0.02 K/mm3 (0.0-2.0) 12/21/17 02:20 PT 11.4 SECONDS (9.4-12.5) 12/20/17 07:33 INR 0.99 (0.93-1.08) 12/20/17 07:33 APTT 29.7 Seconds (25.1-36.5) 12/20/17 07:33 D-Dimer, Quantitative 369 ng/mL (0-243) H 12/20/17 07:33 pO2 43 mm/Hg (30-55) 12/20/17 07:33 VBG pH 7.28 (7.32-7.43) L 12/20/17 07:33 VBG pCO2 63.0 (40-60) H 12/20/17 07:33 VBG HCO3 29.6 mmol/l (21-28) H 12/20/17 07:33 VBG O2 Sat (Calc) 77.0 % (40-65) H 12/20/17 07:33 VBG Base Excess 1.2 mmol/L (0.0-2.0) 12/20/17 07:33 Sodium 144 mmol/L (132-148) 12/20/17 07:33 Potassium 3.5 mmol/L (3.6-5.0) L 12/20/17 07:33 Chloride 103 mmol/L (98-107) 12/20/17 07:33 Carbon Dioxide 29 mmol/L (21-33) 12/20/17 07:33 Anion Gap 16 (10-20) 12/20/17 07:33 BUN 13 mg/dL (7-21) 12/20/17 07:33 Creatinine 0.8 mg/dl (0.7-1.2) 12/20/17 07:33 Est GFR ( Amer) > 60 12/20/17 07:33 Est GFR (Non-Af Amer) > 60 12/20/17 07:33 Random Glucose 128 mg/dL (70-110) H 12/20/17 07:33 Calcium 8.2 mg/dL (8.4-10.5) L 12/20/17 07:33 Total Bilirubin 0.1 mg/dL (0.2-1.3) L 12/20/17 07:33 AST 32 U/L (14-36) 12/20/17 07:33 ALT 29 U/L (7-56) 12/20/17 07:33 Alkaline Phosphatase 102 U/L (38-126) 12/20/17 07:33 Total Creatine Kinase 76 U/L (35-230) 12/20/17 07:33 Troponin I 0.04 ng/mL 12/20/17 07:33 NT-Pro-B Natriuret Pep 366 pg/mL (0-450) 12/20/17 07:33 Total Protein 7.4 g/dL (5.8-8.3) 12/20/17 07:33 Albumin 3.9 g/dL (3.0-4.8) 12/20/17 07:33 Globulin 3.5 gm/dL 12/20/17 07:33 Albumin/Globulin Ratio 1.1 (1.1-1.8) 12/20/17 07:33 Lipase 118 U/L (23-300) 12/20/17 07:33 Urine Color Yellow (YELLOW) 12/20/17 08:45 Urine Appearance Clear (CLEAR) 12/20/17 08:45 Urine pH 6.0 (4.7-8.0) 12/20/17 08:45 Ur Specific [place] 1.025 (1.005-1.035) 12/20/17 08:45 Urine Protein 30 mg/dL (<30 mg/dL) H 12/20/17 08:45 Urine Glucose (UA) Negative mg/dL (NEGATIVE) 12/20/17 08:45 Urine Ketones Negative mg/dL (NEGATIVE) 12/20/17 08:45 Urine Blood Trace-intact (NEGATIVE) H 12/20/17 08:45 Urine Nitrate Negative (NEGATIVE) 12/20/17 08:45 Urine Bilirubin Negative (NEGATIVE) 12/20/17 08:45 Urine Urobilinogen 0.2 E.U./dL (<1 E.U./dL) 12/20/17 08:45 Ur Leukocyte Esterase Negative [place]/uL (NEGATIVE) 12/20/17 08:45 Urine RBC 1 - 3 /hpf (0-2) 12/20/17 08:45 Urine WBC 0 - 2 /hpf (0-6) 12/20/17 08:45 Ur Epithelial Cells 4 - 5 /hpf (0-5) 12/20/17 08:45 Urine Bacteria Mod (NEG) 12/20/17 08:45 Blood Type A POSITIVE 12/20/17 07:37 Antibody Screen Negative 12/20/17 07:37 BBK History Checked Patient has bt 12/20/17 07:37 - Constitutional Appears: Other (Mild respiratory distress.) - Head Exam Head Exam: ATRAUMATIC, NORMAL INSPECTION, NORMOCEPHALIC - Eye Exam Eye Exam: Normal appearance - ENT Exam ENT Exam: Normal External Ear Exam - Neck Exam Neck Exam: Normal Inspection - Respiratory Exam Respiratory Exam: Wheezes (Bilateral.). absent: Respiratory Distress, Stridor - Cardiovascular Exam Cardiovascular Exam: REGULAR RHYTHM, +S1 (Normlal), +S2 (Normal.). absent: JVD - GI/Abdominal Exam GI & Abdominal Exam: absent: Distended - Rectal Exam Rectal Exam: Deferred - Exam Additional comments: Deferred. - Extremities Exam Extremities Exam: Pedal Edema (++) - Back Exam Back Exam: NORMAL INSPECTION - Neurological Exam Neurological Exam: Alert, Awake, Oriented x3 - Psychiatric Exam Psychiatric exam: Anxious - Skin Skin Exam: Normal Color Assessment and Plan - Assessment and Plan (Free Text) Assessment: Hypoxia. Dyspnea. Wheezing. RLL PNA, R/O worsening. R/O Pulmonary edema. R/O CA. CAD. COPD. CHF. Anemia. Arthritis-Right hip. Anxiety/Depression. Plan: EKG stat.--------------> NSR. Troponin stat. CXR stat.----------->? Mild CHF, ? Increase in righ lower lobe infiltrate. Nitroglycerine 0.4 mg SL Q5M x 3 prn chest pain. Lasix 20 mg IV x 1. Oxygen by NRM at 100 % FiO2. Tylenol 975 mg PO x 1 for hip pain. Proventil 2.5 mg as nebulizer treatment stat. Will give 0.5 mg Klonopin PO x 1 prn. Pulse ox 99% on 100 % oxygen by NRM. Patient feels better.(02:46) Trop- 0.09 Rx, Repeat EKG and troponin 6 hours later.
[2017-12-21 02:37] LABS: BASO # 0.02 K/mm3 (0.0-2.0); BASO % 0.3 % (0.0-3.0); EOS # 0.2 (0.0-0.7); EOS % 2.9 % (1.5-5.0); GRAN # 3.76 (1.4-6.5); GRAN % 51.7 % (50.0-68.0); HEMOGLOBIN 8.1 g/dL (12.0-16.0); LYMPH # 2.7 (1.2-3.4); LYMPH % 37.5 % (22.0-35.0); MEAN CELL VOLUME 86.8 fl (80.0-105.0); MEAN CORPUSCULAR HEMOGLOBIN 25.6 pg (25.0-35.0); MEAN CORPUSCULAR HGB CONC 29.5 g/dl (31.0-37.0); MEAN PLATELET VOLUME 8.1 fl (7.0-11.0); MONO # 0.6 (0.1-0.6); MONO % 7.6 % (1.0-6.0); RBC 3.17 10^6/uL (3.5-6.1); RED CELL DISTRIBUTION WIDTH 16.5 % (11.5-14.5); WHITE BLOOD COUNT 7.3 10^3/ul (4.5-11.0)
[2017-12-21] MEDS ORDERED: Albuterol 0.083% Inhal Sol (2.5 mg/3 mL) UD INH STA (02:44)
[2017-12-21 02:53] LABS: TROPONIN I 0.09 ng/mL
[2017-12-21 03:00] LABS: ALB/GLOB RATIO 1.1 (1.1-1.8); ALBUMIN 3.6 g/dL (3.0-4.8); ALT/SGPT 31 U/L (7-56); AST/SGOT 23 U/L (14-36); BLOOD UREA NITROGEN 11 mg/dL (7-21); CALCIUM 8.1 mg/dL (8.4-10.5); GFR NON-AFRICAN AMERICAN > 60
--- NOTE | 2017-12-21 06:47 | HP ---
HISTORY OF PRESENT ILLNESS: The patient is a 62-year-old female, who presents to the emergency room with shortness of breath. Apparently she was fighting off an upper respiratory infection over the past few days. However, this morning, she claims she could not breathe, therefore squad was called and she was brought to the emergency room where she is evaluated and admitted. She denies any chest pain. She denies any palpitations. She did suffer a full mechanical fall approximately 1 week ago and has been nursing some right hip pain since then. PAST MEDICAL HISTORY: The patient is known to have a past medical history positive for osteoarthritis, congestive heart failure, chronic bronchitis, anxiety and depression. She also suffers from gastroesophageal reflux disease. She is status post PTCA. SOCIAL HISTORY: She is . She is a former smoker and nonalcoholic drinker. ALLERGIES: SHE IS KNOWN TO BE ALLERGIC TO EPINEPHRINE WHICH HAS CAUSED ANAPHYLAXIS IN THE PAST. MEDICATIONS: At the time of admission included Cardizem 30 mg p.o. four times a day, Protonix 40 mg twice a day, Spiriva 18 mcg inhaled capsule once a day, aspirin 81 mg once a day, Klonopin 1 mg p.o. in the morning and 3 mg at bedtime. She also has sublingual nitroglycerin tablets to be taken p.r.n. chest pain. REVIEW OF SYSTEMS: Otherwise unremarkable. PHYSICAL EXAMINATION: GENERAL: She is awake, alert, oriented. She appears quite anxious and nervous. VITAL SIGNS: Her blood pressure is 140/87, heart rate is 83, and she is afebrile. HEENT: Head, eyes, ears, nose and throat are unremarkable. NECK: Supple with no lymphadenopathy. No goiter. LUNGS: Mostly clear bilaterally. There are some coarse breath sounds at the right base. HEART: Regular. ABDOMEN: Round, soft, nontender. EXTREMITIES: There is +1 to +2 bilateral edema. DIAGNOSTIC DATA: Chest x-ray reports a right lower lobe infiltrate. She underwent CT angio of the chest which was negative for PE. X-ray of the right hip showed rather severe narrowing of the hip joint. EKG showed regular sinus rhythm with right atrial enlargement and a prolonged QT interval. ASSESSMENT AND PLAN: So the patient is admitted with a diagnosis of right lower lobe pneumonia. She is started on Rocephin 1 g IV daily. Her medications from home are to be continued. Her hemoglobin and hematocrit on admission are 8.9 and 30.9 respectively. This will be followed closely, and if needed, the patient will be transfused. Her serum chemistries are only remarkable for borderline low potassium level of 3.5. Troponins are 0.04, and BNP is 366. The patient is to be reevaluated in the morning. Neftaly Wei MD
--- NOTE | 2017-12-21 07:22 | RAD ---
HISTORY: sob, heaviness in chest COMPARISON: Portable chest 12/20/2017 FINDINGS: LUNGS: Inspiratory volume appears diminished. Right basilar infiltrate appears increased in the lateral portion of the right base with the medial post segment unchanged. No left-sided infiltrate. PLEURA: No significant pleural effusion identified, no pneumothorax apparent. CARDIOVASCULAR: Cardiac silhouette appears stable. No pulmonary vascular congestion. OSSEOUS STRUCTURES: No significant abnormalities. VISUALIZED UPPER ABDOMEN: Normal. OTHER FINDINGS: None. IMPRESSION: Mild increase in right basilar infiltrate with remaining lung dalal clear.
[2017-12-21] MEDS: Pantoprazole 40 mg EC Tab PO SCH ×3 (09:30→17:46)
[2017-12-21] MEDS: CELECOXIB 50 MG PO SCH (09:31)
[2017-12-21] MEDS: Tiotropium 18 mcg Cap For Inhalation IH SCH (09:31)
[2017-12-21] MEDS: cefTRIAXone 1 gm 1 GM/100 ML BAG IVPB SCH (09:31)
--- NOTE | 2017-12-21 10:32 | CARD ---
APPROVED REPORT EKG Measurement Heart [id number] [place] 166P43 [id number] <Conclusion> Normal sinus rhythm Prolonged QT No ST depessions V 4 - 6 now
--- NOTE | 2017-12-21 14:02 | CARD ---
APPROVED REPORT EKG Measurement Heart [id number] [place] 156P58 [id number] <Conclusion> Normal sinus rhythm Prolonged QT Small inferior q waves
[2017-12-21] MEDS ORDERED: Albuterol-Ipratrop 3 mg / 0.5 (3 ml) UD IH PRN (19:06)
--- NOTE | 2017-12-22 03:36 | PN ---
DATE: 12/21/2017 SUBJECTIVE: The patient was seen this evening in room 369, bed 2. She is sitting at the edge of the bed, awake, alert, clear with a multitude of questions and many lists. Her is at the bedside. PHYSICAL EXAMINATION: HEENT: Head and neck are unremarkable. LUNGS: Show good aeration in right and left. There are no rales, no rhonchi, no wheezing. HEART: Regular, not tachycardiac. EXTREMITIES: Show only minimal trace edema related to her obesity. PLAN: I spoke with patient at length regarding her upper respiratory symptoms and cardiac status. I have asked Cardiology and Pulmonary to consult. Because of the scenario of her anxiety, I have asked Psychiatrist, Dr. Chang to consult as well and make sure the patient would be out of the bed, ambulate about the room. I have reassured her that there is approximately 30% chance to go home by tomorrow, more likely a 70% chance for her discharge on Monday and I am uncertain about Monday as she was very much wanting to go home where she is more comfortable and familiar, stable surroundings. Todd Wei MD
--- NOTE | 2017-12-22 08:13 | CON ---
DATE: 12/22/2017 PULMONARY CONSULTATION REFERRING PHYSICIAN: Todd Wei MD REASON FOR CONSULTATION: Chronic obstructive pulmonary disease. HISTORY OF PRESENT ILLNESS: The patient is a 62-year-old female, with past medical history significant for coronary artery disease, status post multiple cardiac stents, chronic obstructive pulmonary disease, anxiety, who presented- originally on 12/20/2017-with increasing shortness of breath at rest and dyspnea on exertion upon awakening. There is no history of cough or sputum production. There is no history of chest pain, coughing up of blood, or chest pain-made worse with deep respirations. There is no history of temperatures, chills or infectious exposure. There is no history of night sweats, weight loss or appetite change prior to the above events. No history of leg or calf pains. No history of syncope or diaphoresis. No history of recent travel. The patient did have a fall approximately 1 week ago at home. REVIEW OF SYSTEMS: No history of nausea, vomiting or diarrhea. No acute urinary symptoms. No new neurologic complaints. Rest of the review of systems is negative. ALLERGIES: ARE TO EPINEPHRINE, ATIVAN, CODEINE, MORPHINE, PERCOCET, VALIUM AND XANAX. SOCIAL HISTORY: Positive for tobacco. Negative for alcohol. FAMILY HISTORY: No inheritable diseases. HOME MEDICATIONS: Include Cardizem, Spiriva, Protonix, nitro tab, Klonopin, Celebrex, Ecotrin and Tylenol. PHYSICAL EXAMINATION: GENERAL: The patient appears very comfortable this morning. She is not short of breath at rest. VITAL SIGNS : Temperature is 98.4, pulse is 79, respirations 19, blood pressure 151/75. Oxygen saturation on nasal cannula is 94%. HEENT: Normocephalic, atraumatic. NECK: No JVD. CARDIOVASCULAR: Positive S1, S2. No S3 gallop. LUNGS: Clear bilaterally. EXTREMITIES: Minimal edema. No cyanosis, no clubbing. Calves are nontender to palpation. GI: Abdomen is soft, nontender, nondistended. Bowel sounds are positive. SKIN: No acute rash. NEUROLOGIC: Exam limited at the present time. PERTINENT LABORATORY DATA: CAT scan of the chest was done on 12/20/2017 as an angiogram protocol. There is no evidence of pulmonary embolism. There is some minimal linear scarring at both lung bases. There is no focal consolidation. There is no lymphadenopathy. CBC: White count 7.3, hemoglobin 8.1, hematocrit 27.5, platelets of 317,000. Complete metabolic profile: Calcium 8.1. Troponin 0.09. Rest of the metabolic profile is within normal limits. IMPRESSION: 1. Shortness of breath-resolved. 2. Chronic obstructive pulmonary disease. 3. Coronary artery disease, status post multiple cardiac stents. 4. Intermediate troponin. 5. Anemia. 6. Anxiety PLAN: The patient presented to [facility]-originally on 12/20/2017-with shortness of breath at rest, and dyspnea on exertion upon awakening. The patient offers no other pulmonary symptoms by history. At the present time, the patient is quite comfortable, and it appears that her shortness of breath has resolved. I did review the CAT scan of the chest-done as an angiogram protocol. There is no pulmonary embolism noted. There are no acute or significant abnormalities noted. On physical exam, her lungs are clear. There is no significant alveolar-arterial gradient. I will continue with the Spiriva--which she is on at home. Cardiology evaluation has been ordered. Psychiatric evaluation has also been ordered. The clinical status of the patient certainly appears improved-compared to the initial presentation. Additional pulmonary intervention will be based on the clinical status of the patient. I will discuss the above with the attending physician. Thank you very much for this pulmonary consultation. Mayo Tatum MD [facility]
--- NOTE | 2017-12-22 10:40 | CON ---
DATE: 12/22/2017 INDICATIONS: Shortness of breath, history of coronary artery disease and coronary stents. HISTORY OF PRESENT ILLNESS: This is a 62-year-old woman, known to our practice with admission on 12/20/2017 with shortness of breath. This was associated with tightness in the chest and midepigastric discomfort. Her initial chest x-ray appeared to show a right lower lobe infiltrate. A CAT scan, however, did not confirm this. She has been treated with respiratory treatments and antibiotics. During the night, she has had further episodes of dyspnea, which were treated acutely. This morning, she is much more comfortable without shortness of breath. There is no chest pain. Her EKG was benign. Telemetry has been benign and troponins are negative. There is no orthopnea, PND, syncope, presyncope, lightheadedness, dizziness, vertigo, palpitations, edema, claudication, fever, chills, rigor, sweats, hemoptysis, nausea, vomiting, diarrhea, constipation, melena. PAST MEDICAL HISTORY: She has a history of coronary artery disease with multiple coronary stents in the right coronary artery and in the LAD. She is a former smoker who quit about 7 years ago. She has COPD and chronic bronchitis. She has anxiety and depression, degenerative joint disease, hypertension, hyperlipidemia, GERD, discogenic disease, chronic pain and limitation of mobility. MEDICATIONS AT THE TIME OF ADMISSION: Include diltiazem, Celebrex, aspirin, Klonopin, nitroglycerin p.r.n., Protonix, Spiriva and Tylenol. ALLERGIES: SHE NOTES AN ALLERGY TO SEVERAL MEDICATIONS INCLUDING EPINEPHRINE, BENADRYL, ATIVAN. SOCIAL HISTORY: She lives at home. She does not smoke. She does not drink alcohol significantly. FAMILY HISTORY: Noncontributory. REVIEW OF SYSTEMS: Ten-point review of systems otherwise unremarkable except as noted above. PHYSICAL EXAMINATION: GENERAL: She is a well-developed woman, sitting on a bed on telemetry, in no acute distress. VITAL SIGNS: She is in sinus rhythm at 72-82 beats per minute. She is afebrile, blood pressure 151/75, respirations 19-20, O2 sat 93-94% on nasal cannula. HEENT: Reveals no neck vein distention, thyromegaly or carotid bruits. Mucous membranes are moist. Conjunctivae pink. NECK: Supple. LUNGS: Lung dalal, scattered rhonchi. HEART: Examination of the heart revealed normal first and second heart sounds. Soft systolic murmur along the left sternal border. ABDOMEN: Soft. Bowel sounds are present. No mass, organomegaly, tenderness, rebound, guarding, CVA tenderness, or palpable abdominal aortic aneurysm. EXTREMITY: Revealed no cyanosis, clubbing or edema. NEUROLOGIC: She is awake, alert and oriented. SKIN: Warm and dry. No rash or cellulitis. LABORATORY DATA AND IMAGING: Initial chest x-ray showed right lower lobe infiltrate. A CT scan of the chest, however, showed no evidence of pulmonary embolus. Minimal scarring or atelectasis at both lung bases. No focal consolidation. A followup chest x-ray on 12/21/2017 was read as mild increase in right basilar infiltrate. The remaining lung dalal are clear. White count normal, platelet count normal, hemoglobin 8.1, hematocrit 27.5. PT, INR, PTT unremarkable. D-dimer elevated at 369. Electrolytes: BUN, creatinine unremarkable. Calcium low at 8.1. LFT is unremarkable. CK 76. Three troponins are negative. BNP 366. Lipase 118. Urinalysis is noted. Urine culture is less than 10,000 CFUs. IMPRESSION: Angie Weiner is a 62-year-old woman with known coronary artery disease, status post multiple stents, who is admitted with shortness of breath, found to have an infiltrate on chest x-ray, not confirmed on CT scan of the chest, being treated with antibiotics with improvement in her respiratory status. She is also anemic with a history of anxiety, degenerative joint disease, chronic pain. At this point, I agree with current plans. I will continue with current cardiac meds. I do not get the sense that she is having ischemic symptoms. She is on diltiazem, aspirin and nitroglycerin for p.r.n. use. She has been given Lasix. She is getting pulmonary treatments, antibiotics. She is being seen by Dr. Tatum. She will have a psychiatric evaluation as well. She can be out of bed and ambulate. I will review her old records. I will discuss her case with Dr. Robbins, who follows her in the office. Upon discharge, she will continue outpatient followup in our office. The anemia appears to be chronic. We will check stool for occult blood. Hematology and Gastroenterology evaluations might be considered as well. Nadeem Laguna MD [facility]
[2017-12-22] MEDS: Tiotropium 18 mcg Cap For Inhalation IH SCH (10:45)
[2017-12-22] MEDS: Pantoprazole 40 mg EC Tab PO SCH ×3 (10:46→17:50)
[2017-12-22] MEDS: cefTRIAXone 1 gm 1 GM/100 ML BAG IVPB SCH (10:46)
[2017-12-22] MEDS: CELECOXIB 50 MG PO SCH (10:47)
[2017-12-23] MEDS: Levalbuterol 1.25 MG/3 ML Inhal Soln UD IH SCH ×3 (07:37→21:15)
--- NOTE | 2017-12-23 07:53 | PN ---
DATE: 12/23/2017 PULMONARY NOTE SUBJECTIVE: The patient appears comfortable this morning. She is not short of breath at rest. She does complain of some cough now. OBJECTIVE: VITAL SIGNS (last noted in the computer): Temperature is 98, pulse 77, respirations 18/20, blood pressure 145/66. Oxygen saturation on nasal cannula is 97%. HEENT: Normocephalic, atraumatic. No JVD. CARDIOVASCULAR: Positive S1, S2. No S3 gallop. LUNGS: Mild rhonchi bilaterally. No wheezing. EXTREMITIES: Minimal edema. No cyanosis or clubbing. Calves are nontender to palpation. GASTROINTESTINAL: Abdomen is soft, nontender and nondistended. Bowel sounds are positive. SKIN: No acute rash. NEUROLOGIC: Exam limited at the present time. IMPRESSION: 1. Chronic obstructive pulmonary disease. 2. Mild acute bronchitis. Rule out right lower lobe pneumonia. 3. Coronary artery disease. 4. Intermediate troponin. 5. Anemia. 6. Anxiety. PLAN: The patient appears comfortable this morning. She is not short of breath at rest. She does have some cough with sputum production at this point in time. The sputum did have some blood streaking(after forceful coughing ) this morning. On physical exam, there is mild bronchospasm now noted. There is no significant alveolar-arterial gradient. In fact, the oxygen saturation on nasal cannula is now 97%(increased). I will continue with the Spiriva and add Xopenex nebulizer treatments this morning. The patient also remains on oral antibiotic therapy. There are no temperatures noted. There is no leukocytosis. Cardiology evaluation with Dr. Laguna is noted. The clinical status of the patient is improved - compared to the initial presentation. I will also order aspiration precautions. I will discuss the above with the attending physician. Mayo Tatum MD [facility]
[2017-12-23] MEDS: Tiotropium 18 mcg Cap For Inhalation IH SCH (10:09)
[2017-12-23] MEDS: Pantoprazole 40 mg EC Tab PO SCH ×2 (10:09→17:21)
[2017-12-23] MEDS: CELECOXIB 50 MG PO SCH (10:10)
[2017-12-23] MEDS: Cefpodoxime (Vantin) 200 mg Tab PO SCH ×2 (10:10→22:34)
[2017-12-24] MEDS: Levalbuterol 1.25 MG/3 ML Inhal Soln UD IH SCH ×4 (03:00→20:53)
[2017-12-24 07:15] LABS: BASO # 0.03 K/mm3 (0.0-2.0); BASO % 0.4 % (0.0-3.0); EOS # 0.2 (0.0-0.7); EOS % 2.5 % (1.5-5.0); GRAN # 4.4 (1.4-6.5); GRAN % 56.9 % (50.0-68.0); LYMPH # 2.6 (1.2-3.4); LYMPH % 33.7 % (22.0-35.0); MEAN CELL VOLUME 86.8 fl (80.0-105.0); MEAN CORPUSCULAR HEMOGLOBIN 25.9 pg (25.0-35.0); MEAN CORPUSCULAR HGB CONC 29.8 g/dl (31.0-37.0); MEAN PLATELET VOLUME 8.8 fl (7.0-11.0); MONO # 0.5 (0.1-0.6); MONO % 6.5 % (1.0-6.0); RBC 3.48 10^6/uL (3.5-6.1); RED CELL DISTRIBUTION WIDTH 16.5 % (11.5-14.5); WHITE BLOOD COUNT 7.7 10^3/ul (4.5-11.0)
--- NOTE | 2017-12-24 07:35 | PN ---
DATE: 12/24/2017 PULMONARY NOTE SUBJECTIVE: The patient appears comfortable this morning. She is not short of breath at rest. She is coughing much less. PHYSICAL EXAMINATION: VITAL SIGNS: Temperature is 97.6, pulse 87, respirations 19, blood pressure 139/75. Oxygen saturation on nasal cannula is 94%. HEENT: Normocephalic, atraumatic. No JVD. CARDIOVASCULAR: Positive S1, S2. No S3 gallop. LUNGS: Much less rhonchi bilaterally. No wheezing. EXTREMITIES: Minimal edema. No cyanosis, no clubbing. Calves are nontender to palpation. GI: Abdomen is soft, nontender and nondistended. Bowel sounds are positive. SKIN: No acute rash. NEUROLOGIC: Limited at the present time. IMPRESSION: 1. Chronic obstructive pulmonary disease. 2. Mild acute bronchitis. Rule out right lower lobe pneumonia. 3. Coronary artery disease. 4. Intermediate troponin. 5. Anemia. 6. Anxiety. PLAN: The patient appears definitely more comfortable this morning. She is not short of breath at rest. She has much less cough. The hemoptysis has resolved. The patient does state to feeling much better overall. I did discuss the case with the night nurse at length. The night nurse also confirms that the patient is doing well overall, after a good night. On physical exam, there is certainly less bronchospasm noted. In addition, there is less alveolar-arterial gradient. I will continue the current nebulizer treatments and Spiriva for now. The patient remains on oral antibiotic therapy. There are no temperatures noted. Repeat a.m. labs are pending. There is also a repeat chest x-ray ordered for today - for comparison. The clinical status of the patient certainly appears to be improving. The patient is advised to be out of bed as much as possible. Input by Cardiology is noted. I will discuss the above with the attending physician. Mayo Tatum MD [facility]
[2017-12-24 07:47] LABS: ALB/GLOB RATIO 1.2 (1.1-1.8); ALBUMIN 3.7 g/dL (3.0-4.8); ALT/SGPT 33 U/L (7-56); AST/SGOT 27 U/L (14-36); BLOOD UREA NITROGEN 7 mg/dL (7-21); CALCIUM 8.2 mg/dL (8.4-10.5); GFR NON-AFRICAN AMERICAN > 60
[2017-12-24] MEDS: Cefpodoxime (Vantin) 200 mg Tab PO SCH (09:40)
[2017-12-24] MEDS: Pantoprazole 40 mg EC Tab PO SCH ×2 (09:41→18:05)
[2017-12-24] MEDS: Tiotropium 18 mcg Cap For Inhalation IH SCH (09:41)
[2017-12-24] MEDS: CELECOXIB 50 MG PO SCH (10:59)
--- NOTE | 2017-12-24 11:58 | RAD ---
HISTORY: RLL pneumonia COMPARISON: Made with chest radiograph dated 12/21 17 TECHNIQUE: Chest PA and lateral FINDINGS: LUNGS: Re- demonstrated is patchy right lower lobe infiltrate. Mild left basilar atelectasis. The interstitial markings are increased and coarsened ; rule out sequela of reactive/inflammatory airway disease or viral illness or possibly mild interstitial edema PLEURA: No significant pleural effusion identified. No pneumothorax apparent. CARDIOVASCULAR: Cardiomegaly. OSSEOUS STRUCTURES: No significant abnormalities. VISUALIZED UPPER ABDOMEN: Normal. OTHER FINDINGS: None. IMPRESSION: Re- demonstrated is patchy right lower lobe infiltrate. Mild left basilar atelectasis. The interstitial markings are increased and coarsened ; rule out sequela of reactive/inflammatory airway disease or viral illness or possibly mild interstitial edema
[2017-12-24] MEDS ORDERED: Cefpodoxime (Vantin) 200 mg Tab PO SCH (22:00)
--- NOTE | 2017-12-25 00:53 | PN ---
DATE: 12/24/2017 DAILY PROGRESS NOTE SUBJECTIVE: The patient is a 62-year-old female with a history of coronary artery disease, status post PTCA; history congestive heart failure, chronic bronchitis, gastroesophageal reflux, anxiety and depression, who presented to the emergency room on 12/21/2017 complaining of shortness of breath after 1 week history of upper respiratory symptoms. She was found to have a right lower lobe pneumonia on chest x-ray. She was started on Rocephin, later this was changed to Vantin by the shipyard painting supervisor, Dr. Tatum and the patient continues to do well. She received 1 unit of pack red blood cells for a hemoglobin of 8.1 yesterday. Earlier today, she went for repeat chest x-ray, which the results are pending. This morning, she is awake, alert and oriented. Her respirations are easy. Her lungs are clear to auscultation and percussion. Heart is regular. Abdomen is soft and nontender. She is afebrile at 97.6 degrees Fahrenheit, blood pressure is 139/75 with a heart rate of 87. Her white count blood cell count is 7.7; post transfusion of 1 unit of packed cells, her hemoglobin is 9, hematocrit is 30.2; platelet count is 312. Sodium is 142, potassium 3.5, blood urea nitrogen is 7, creatinine 0.7 and glucose is 93. So at this time, we are continuing with the Vantin 200 mg every 12 hours. She is receiving diltiazem 30 mg four times daily, Ecotrin 81 mg, Protonix, Spiriva, Klonopin 1 mg in the am and 3 mg at hour of sleep. She is also receiving Xopenex nebulizer treatments. We are continuing this current regimen. The patient will be reevaluated in the morning. I anticipate discharge to home in 1 or 2 days. I spoke to the patient about a possible transfer to the Transitional Care Unit; however, the patient has some bad memories of a parent being in the Transitional Care Unit and psychologically find it too upsetting for her to go back there, therefore she is refusing transfer to the Transitional Care Unit and would rather be discharged to home. Neftaly Wei MD [facility] # [id number]
[2017-12-25] MEDS: Levalbuterol 1.25 MG/3 ML Inhal Soln UD IH SCH ×4 (02:15→20:22)
--- NOTE | 2017-12-25 02:46 | PN ---
DATE: 12/22/2017 The patient is a 62-year-old female who presented to the Emergency Room with shortness of breath and respiratory distress. She has been fighting off an upper respiratory infection over the past few days. She was evaluated and admitted. She is known to have a past medical history positive for osteoarthritis, congestive heart failure, chronic bronchitis, anxiety and depression. She also suffers from gastroesophageal reflux and is status post PTCA. Chest x-ray reveals a right lower lobe pneumonia. The patient was started on intravenous Rocephin. When seen today, on 12/22/2017, the patient was more comfortable, her respirations looked easy. She did have some sonorous rhonchi still in the right lower lobe. She was afebrile. The white blood cell count was normal. Blood pressure was 151/75, heart rate was 79. We are continuing with the Rocephin at this point. Consultation from Dr. Mclean is requested, the package designer, and the patient will be reevaluated in the morning. Neftaly Wei MD
[2017-12-25] MEDS: Levalbuterol 1.25 MG/3 ML Inhal Soln UD IH PRN (06:43)
--- NOTE | 2017-12-25 07:57 | PN ---
DATE: 12/25/2017 PULMONARY NOTE SUBJECTIVE: The patient appears comfortable this morning. She is not short of breath at rest. PHYSICAL EXAMINATION: VITAL SIGNS: Temperature is 97.7, pulse 83, respirations 18, blood pressure 133/87. Oxygen saturation on nasal cannula is 99%. HEENT: Normocephalic, atraumatic. NECK: No JVD. CARDIOVASCULAR: Positive S1, S2. No S3 gallop. LUNGS: Minimal/much less rhonchi. No wheezing. EXTREMITIES: Minimal edema. No cyanosis, no clubbing. Calves are nontender to palpation. GI: Abdomen is soft, nontender and nondistended. Bowel sounds are positive. SKIN: No acute rash. NEUROLOGIC: Exam limited at the present time. PERTINENT LABORATORY DATA: Chest x-ray was repeated yesterday and reviewed. The chest x-ray done yesterday shows definite improvement. The right lower lobe infiltrate is both decreased in size (especially the lateral aspects) and denseness. IMPRESSION: 1. Chronic obstructive pulmonary disease. 2. Mild acute bronchitis. Rule out right lower lobe pneumonia. 3. Coronary artery disease. 4. Intermediate troponin. 5. Anemia. 6. Anxiety. PLAN: The patient appears comfortable this morning. She is not short of breath at rest. Her cough is much less. The patient does state to feeling much better overall. I did discuss the case with the night nurse at length. The night nurse stated that the patient had a very good night. I did review the chest x-ray as above. The chest x-ray does show definite improvement. The right lower lobe infiltrate is both decreased in size and denseness. The patient has been switched to intravenous Rocephin (because of diarrhea). I would continue with the current antibiotic therapy for now. I will also continue with the current nebulizer treatments. The bronchospasm is significantly reduced. In addition, the alveolar-arterial gradient is also significantly reduced. Oxygen saturation on nasal cannula is now 99%. The clinical status of the patient is significantly improved overall. The patient is advised to be out of bed as much as possible. I will discuss the above with the attending physician. Mayo Tatum MD [facility] # [id number] [facility]
--- NOTE | 2017-12-25 08:41 | PN ---
DATE: 12/23/2017 SUBJECTIVE: The patient is an 62-year-old female who presents to the emergency room with shortness of breath after a week of symptoms of an upper respiratory infection. She was found to have a right lower lobe pneumonia and was admitted. She has been treated with intravenous Rocephin since admission, and has been doing well, her respirations are easier. The patient is also known to have a past medical history positive for osteoarthritis, congestive heart failure, status post PTCA, chronic bronchitis, anxiety and depression. When seen today, as above, her respirations are easy. She is in good spirits. She is afebrile at 98.1 degrees Fahrenheit, blood pressure is 153/70, heart rate is 68. White blood cell count is 7.3, hemoglobin is 8.1. ASSESSMENT AND PLAN: The patient had been complaining of feeling exhausted and still short of breath on ambulating to the bathroom. We are concerned about the low hemoglobin in the presence of her comorbidities especially history of congestive heart failure and coronary artery disease, therefore the order is written for the transfusion of 1 unit of packed red blood cells, the patient was found to be A+ type blood, this is to be transfused. The chest x-ray is to be repeated as well. Consultation from the blood collector Dr. Tatum is appreciated. It is noted that the Rocephin has been discontinued and the patient has been changed to Vantin twice a day. The patient is anxious and skeptical because she had bad results from oral antibiotics in the past causing diarrhea; however, the patient was reassured that we should try the oral antibiotics in anticipation of discharge to home in the near future. Neftaly Wei MD [facility]
--- NOTE | 2017-12-25 09:09 | CON ---
DATE: 12/22/2017 HISTORY OF PRESENT ILLNESS: The patient is a 62-year-old white female who was admitted to the medical floor to evaluate for symptoms of shortness of breath and epigastric discomfort and tightness. Psychiatry was consulted to evaluate the patient's anxiety symptoms. I met with the patient at bedside on multiple occasions as the patient has various reasons for not wanting to care about me in the evaluation, though she ultimately agreed for an evaluation during my 3rd visit. The patient is alert, oriented to month, year, location, and circumstances. She is communicative and appeared anxious throughout the course of our interview. She admits to anxiety and states "I can't stop worrying, it is overwhelming, I worry about everything, it is intrusive." The patient reports that her anxiety also affects her sleep. Though the patient has a history of periods of depression in her 20s, some of it is associated with suicidal thoughts, she denies having any recent profound symptoms of depression or hopelessness. The patient reports that her main issue is anxiety at this time and indicates that she is usually always an outgoing and very high functioning, however, anxiety has been affecting her more recently. The patient's thought process is over inclusive, , repetitive, and she is difficult to redirect. The patient can also be dramatic at times and disparaging of her prior providers, Dr. Pérez and Dr. Dominguez, indicating that Dr. Pérez would make juvenile and childish jokes with her which were inappropriate and that Dr. Dominguez indicated that he thought that she just needed to get , both these descriptions about these physicians are not on par with their professional reputation at all. The patient is eager for psychiatric followup and so far that she wants to see Psychiatry who delivers care in the hospital so that she can continue caring on an outpatient basis with the Psychiatry. I indicated this was not possible at this time as this provider does not have outpatient services. The patient appears disappointed though she is hoping to have a referral for outpatient psychiatric management. Regarding medications, the patient reports she has history of numerous failure of medication trial, "nothing ever worked to me." The patient reports MAOI, tricyclics, SSRIs, all have opposite effects for her, Xanax makes her hyper and the only medication that worked for her in the past was Seroquel and that was only for a week. The patient is ambivalence about starting any medication, even try Seroquel again and indicates that she would only take Seroquel if that was given to her at a dose of 6 mg, which is not possible at this time. Though the patient does reports trouble with sleeping, she is reluctant to try any medications indicating as there are past medication trials and side effects. The patient indicates that she is very hypersensitive to medications and this is why, she is apprehensive about trying any psychiatric medications as evaluation cannot be continued by the same provider on the medical floor to outpatient services. The patient denies hallucination. She wants to improve her mental and her physical health. She is not suicidal and reports that she is willing to accept referral for outpatient treatment once she is medically cleared from the unit. The patient does not appear to be interested in inpatient hospitalization. Vital signs and lab work were reviewed by this provider. Medications were reviewed by this provider., The patient has been getting Klonopin 3 mg at bedtime and Klonopin 1 mg at morning. PSYCHIATRIC HISTORY: The patient denies having a long history of psychiatric followup on outpatient basis, indicates that she will never see Dr. Pérez again or Dr. Dominguez again. She is not currently in psychiatric followup, reports every single medication she tried has failed on her, Seroquel worked for her approximately 1 week and then stopped working. She denies any suicide attempts or psychiatric admission, currently taking Klonopin 3 mg at bedtime and 1 mg at morning, which she reports help "a little." The patient has a history of outpatient therapy twice weekly as well and is open to the psych referral. SOCIAL HISTORY: The patient was born and raised in [place]. She lives with her significant other. She is not working and has been on disability since 1993 for herniated disc and anxiety and depression, though, she is not seeing outpatient mental health provider for the symptoms. IMPRESSION: Generalized major depressive disorder by history, minor at this time. Generalized anxiety disorder, obsessive compulsive component and very likely borderline personality disorder. RECOMMENDATIONS: Patient reports numerous failed medication trial. Actually, the patient reports that all medication trials have failed her including Seroquel which only worked for 1 week. The patient reports that Klonopin helped "a little" and will continue this medication as is. The patient reports her current functioning has decreased. The patient has been living with these symptoms for months at this time. She is not suicidal, she is not homicidal and will definitely benefit from outpatient psychiatric management and therapy for her symptoms. Presently, she is reluctant to start any medication due to her history of hypersensitivity side effect, especially, since she will not be following up with this particular psychiatrist when she is discharged. My recommendation is that social media marketing analyst provide outpatient referral for medication management as well as therapies once she is medically cleared. I will not start any medications at this time as this cannot be monitored responsibly and consistently once she is discharged and there is no acuity in initiating any medications at this time. Psychiatry will sign off at this time. Please re-consult as necessary if there are any acute changes in patient's symptoms. Of note, the patient is willing to take Seroquel at 6 mg dose, however, this tiny dose is not possible to provide and this information was relayed to the patient. Chiqui Nevarez MD
[2017-12-25] MEDS: cefTRIAXone 1 gm 1 GM/100 ML BAG IVPB SCH (11:23)
[2017-12-25] MEDS: CELECOXIB 50 MG PO SCH (11:25)
[2017-12-25] MEDS: Tiotropium 18 mcg Cap For Inhalation IH SCH (11:27)
[2017-12-25] MEDS: Pantoprazole 40 mg EC Tab PO SCH ×2 (11:27→18:06)
--- NOTE | 2017-12-25 15:57 | PN ---
DATE: 12/25/2017 SUBJECTIVE: The patient was followed up as per medical team request. The patient was initially seen by Dr. Nevarez, signed off because the patient did not meet the criteria for psychiatric admission and presented well. Reconsultation was done because of the patient's anxiety. The patient was seen and examined. Notes reviewed. The patient has multiple medical issues, multiple cardiac issues as well as lung issues. The patient presented to be with good personal hygiene, well related to this newswriter, strong borderline personality traits. The patient has tendency of staffs. The patient reported that she suffered from anxiety for many years. The patient denied that she ever tried to kill herself in the past. The patient was seen by multiple psychiatrists in the past, Dr. Pérez, Dr. Dominguez. The patient reported that she currently is under service of therapist, Ms. Samantha Howell. The patient also had history of being followed up with local psychiatrist, Dr. Minor Sykes. The patient reported that she has a lot of social issues, financial issues. She would love to go back to Dr. Pérez's service, but she cannot afford his services anymore. The patient presented to be circumstantial and tangential thought process, but not acutely psychotic. The patient reported at times she feels overwhelmed, but adamantly denied any thoughts of harming herself or others. The patient reported that she is taking Klonopin 4 mg a day. The patient asked how to be weaned off from the benzodiazepines. Options discussed. The patient does not want to be weaned off here, while she was admitted on the medical floor. The patient was advised to follow up with outpatient psychiatrist and discussed options with outpatient psychiatrist. VITAL SIGNS: This newswriter reviewed vital signs. Vital signs seems to be stable. Temperature 97.7, pulse is 83, blood pressure 133/87, respirations 18, oxygen saturation is 99. MEDICATIONS: Reviewed. The patient is on Tylenol, aspirin, Rocephin, Klonopin 3 mg p.o. at the nighttime scheduled, Klonopin 1 mg at the morning time scheduled. We will leave it as it is. Cardizem, Colace, Xopenex, Celebrex, Protonix, Spiriva. LABORATORY DATA: Reviewed. This was from yesterday. Chemistry reviewed. Potassium was 3.5 yesterday. MENTAL STATUS EXAMINATION: The patient appears to be with good personal hygiene. Alert and oriented, pleasant, cooperative with eye contact. Speech was overproductive, but not pressured. Mood described as anxious. Affect was reactive, mood congruent. Thought process seems to be circumstantial, tangential. Thought content, the patient denied visual, auditory, tactile hallucinations. Denied paranoid ideation. The patient denied thoughts of harming herself or others. Denied intent or plan. The patient is not acutely psychotic, but mildly grandiose. Insight and judgment seems to be fair. Impulses are well controlled. IMPRESSION: Most likely the patient has borderline personality disorder versus narcissistic personality disorder. The patient has history of depression or anxiety. She was on multiple psychotropic medications in the past and under the services of multiple psychiatrist. The patient has multiple medical issues for what the patient could contribute to the patient's anxiety and depression. PLAN: The patient does not present to be acutely psychotic or depressed. The patient denied thoughts of harming herself or others. The patient denied hearing voices, denied seeing things. The patient has sick therapist in the community, Ms. Samantha Howell. The patient is aware of the local psychiatrist here in [place], Dr. Minor Sykes as well as Dr. Pérez and Dr. Dominguez. The patient denied suicidal or homicidal ideation. The patient contracted for safety. The patient said in case if she would have thoughts of harming herself, which she never did before, she would bring herself back to the hospital. Meanwhile, the patient does not meet the criteria for psychiatric admission. The patient has followup appointment with her therapist. The patient was advised to schedule followup appointment with either Dr. Minor Sykes or local psychiatrists. The patient verbalized understanding. The patient pose no imminent danger to self or others. Thank you very much for the consultation. This newswriter will sign off. Should you have any questions, give me a call back. Charlene Suazo MD [facility]
--- NOTE | 2017-12-25 19:21 | PN ---
DATE: 12/25/2017 I would like today's progress note to be read as follows, if you would be so kind. SUBJECTIVE: The patient is a 62-year-old female with a history of coronary artery disease status post PTCA, history of congestive heart failure, chronic bronchitis, gastroesophageal reflux, anxiety and depression who presented to the emergency room on 12/21/2017 complaining of shortness of breath after 1 week of upper respiratory symptoms. She was found to have a right lower lobe pneumonia, was treated with Rocephin. It was later was changed to Vantin. She was followed by Dr. Tatum, the judo teacher. As the patient had warned in the past, oral antibiotics tend to give her diarrhea and early this morning, I received a phone call from her nurse stating that last night she had 4 or 5 bouts of watery diarrhea. Therefore, the Vantin was discontinued and she is put back on the intravenous Rocephin. Earlier during her hospital stay, her hemoglobin dropped as low as 8.1 because of the patient's other comorbidities, coronary artery disease, status post PTCA and because of her current complaints of weakness and tiredness and lightheadedness. She was transfused 1 unit of packed cells and tolerated that procedure very well. When seen today, she is awake, alert and oriented. She is sitting up in chair at bedside. She is looking forward to receiving two more doses of intravenous Rocephin and then be discharged to home possibly on Monday. Her respirations are easy. Followup chest x-ray shows improvement in her right lower lobe pneumonia. We are continuing to follow the patient closely. Neftaly Wei MD
[2017-12-26] MEDS: Levalbuterol 1.25 MG/3 ML Inhal Soln UD IH SCH ×4 (01:43→20:14)
--- NOTE | 2017-12-26 09:21 | PN ---
DATE: 12/26/2017 PULMONARY NOTE SUBJECTIVE: The patient appears very comfortable this morning. She is not short of breath at rest. PHYSICAL EXAMINATION: VITAL SIGNS: Temperature is 98.5, pulse 87, respirations 18, blood pressure 154/75. Oxygen saturation on nasal cannula is 94%. HEENT: Normocephalic, atraumatic. No JVD. CARDIOVASCULAR: Positive S1, S2. No S3 gallop. LUNGS: Very minimal/much less rhonchi. No wheezing. EXTREMITIES: Minimal edema. No cyanosis, no clubbing. Calves are nontender to palpation. GASTROENTEROLOGY: Abdomen is soft, nontender, and nondistended. Bowel sounds are positive. SKIN: No acute rash. NEUROLOGIC: Limited at the present time. IMPRESSION: 1. Chronic obstructive pulmonary disease. 2. Mild acute bronchitis. Rule out right lower lobe pneumonia. 3. Coronary artery disease. 4. Intermediate troponin. 5. Anemia. 6. Anxiety. PLAN: The patient appears very comfortable this morning. She is not short of breath at rest. She does state to feeling much better overall. I did discuss the case with the night nurse at length. The night nurse stated that the patient had a very good night. On physical exam, her bronchospasm continues to slowly resolve. In addition, the alveolar-arterial gradient also continues to resolve. I will continue with current nebulizer treatments and aspiration precautions for now. The patient remains on antibiotic therapy. There are no temperatures noted. There is no leukocytosis. Inputs by cardiology are also noted. The clinical status of this patient is significantly improved overall. I will discuss the above with the attending physician. Mayo Tatum MD MTDGrady
[2017-12-26] MEDS: CELECOXIB 50 MG PO SCH (09:22)
[2017-12-26] MEDS: Pantoprazole 40 mg EC Tab PO SCH ×2 (09:22→17:39)
[2017-12-26] MEDS: Tiotropium 18 mcg Cap For Inhalation IH SCH (09:22)
[2017-12-26] MEDS: cefTRIAXone 1 gm 1 GM/100 ML BAG IVPB SCH (09:23)
--- NOTE | 2017-12-26 22:00 | PN ---
DATE: 12/26/2017 SUBJECTIVE: The patient is a 62-year-old female with history of coronary artery disease, status post PTCA, history of congestive heart failure, chronic bronchitis, gastroesophageal reflux, anxiety and depression, who presented to the emergency room and was admitted 5 days ago on 12/21 with shortness of breath, respiratory distress. She was found to have a right lower lobe pneumonia. We started her on Rocephin. She was seen by Dr. Tatum, the Program Services Assistant, who was following the patient. We attempted changing the Rocephin to Vantin; however, the patient developed diarrhea. Therefore, she was put back on the intravenous Rocephin. Her hemoglobin got as low as 8.1 during the hospital stay because of her comorbidities, especially because of her history of coronary disease. One unit of packed red blood cells was transfused. The patient's hemoglobin responded nicely. The patient is feeling much better. At this point, her respirations are easy. She denies any shortness of breath. Denies any chest pain or cough. She does feel some benefit from nebulizer treatments, which she has been receiving and therefore, will be requesting prescription for nebulizer machine with tubing and mouthpiece and Xopenex solution for the nebulizer machine on discharge. We are planning discharge to home in the morning. Followup chest x-rays through the hospital stay had showed continuous improvement of the patient's pneumonia. Neftaly Wei MD
[2017-12-27] MEDS: Levalbuterol 1.25 MG/3 ML Inhal Soln UD IH SCH ×3 (01:40→14:14)
[2017-12-27] MEDS: Levalbuterol 1.25 MG/3 ML Inhal Soln UD IH PRN (04:55)
[2017-12-27 07:39] VITALS: RESP 22; TEMP 97.8; O2SAT 99
--- NOTE | 2017-12-27 08:40 | PN ---
DATE: 12/27/2017 PULMONARY NOTE SUBJECTIVE: The patient appears very comfortable this morning. She is not short of breath at rest. OBJECTIVE: VITAL SIGNS: Temperature is 97.8, pulse is approximately 80, respirations 18, blood pressure 133/65. Oxygen saturation on nasal cannula is 99%. HEENT: Normocephalic, atraumatic. No JVD. CARDIOVASCULAR: Positive S1, S2. No S3 gallop. LUNGS: Clear bilaterally this morning. EXTREMITIES: Minimal edema. No cyanosis or clubbing. Calves are nontender to palpation. GASTROINTESTINAL: Abdomen is soft, nontender and nondistended. Bowel sounds are positive. SKIN: No acute rash. NEUROLOGIC: Exam limited at the present time. IMPRESSION: 1. Chronic obstructive pulmonary disease. 2. Mild acute bronchitis. Rule out right lower lobe pneumonia. 3. Coronary artery disease. 4. Intermediate troponin. 5. Anemia. 6. Anxiety. PLAN: The patient appears very comfortable this morning. She is not short of breath at rest. She does state to feeling much, much better overall. I did discuss the case with the night nurse at length. The night nurse stated that the patient had a good night. On physical exam, her lungs are now clear. In addition, the oxygen saturation on nasal cannula is now 99%. I will continue with the current nebulizer treatments and aspiration precautions for now. I will also continue with the intravenous Rocephin for now. There are no temperatures noted. There is no leukocytosis. The clinical status of the patient is significantly improved overall. I have suggested to the patient-- that a short stay on the transitional unit may be of great benefit to her. She is refusing. I will discuss the above with the attending physician. Mayo Tatum MD RAFA
[2017-12-27] MEDS ORDERED: cefTRIAXone 1 gm 1 GM/100 ML BAG IVPB SCH (10:00)
[2017-12-27] MEDS: CELECOXIB 50 MG PO SCH (10:40)
[2017-12-27] MEDS: Pantoprazole 40 mg EC Tab PO SCH (10:40)
[2017-12-27] MEDS: Tiotropium 18 mcg Cap For Inhalation IH SCH (10:41)
[2017-12-27 13:08] VITALS: BP 155/74; PULSE 84
== END 2017-12-27 16:00 | disposition home or self-care (01) | DRG 194 ==
LOC: ED 06:53 → ERH 13:03 → 2RNO 16:20 → OBSVTOIN 12-21 12:32 → 5RNO 12-26 16:02
PROVIDERS: ADMIT Internal Medicine; ATTEND Internal Medicine
PROC: 30233N1 Transfusion of Nonautologous Red Blood Cells into Peripheral Vein, Percutaneous Approach (ICD-10-PCS; principal; 2017-12-23)
DX: J18.9 Pneumonia, unspecified organism (principal); J44.0 Chronic obstructive pulmonary disease with (acute) lower respiratory infection; R09.02 Hypoxemia; J20.9 Acute bronchitis, unspecified; I11.0 Hypertensive heart disease with heart failure; I50.9 Heart failure, unspecified; F41.1 Generalized anxiety disorder; F60.3 Borderline personality disorder; F32.9 Major depressive disorder, single episode, unspecified; E78.5 Hyperlipidemia, unspecified; M51.26 Other intervertebral disc displacement, lumbar region; M19.90 Unspecified osteoarthritis, unspecified site; D64.9 Anemia, unspecified; K21.9 Gastro-esophageal reflux disease without esophagitis; I25.10 Atherosclerotic heart disease of native coronary artery without angina pectoris; G89.29 Other chronic pain; F60.5 Obsessive-compulsive personality disorder; Z87.891 Personal history of nicotine dependence; Z95.5 Presence of coronary angioplasty implant and graft; Z79.82 Long term (current) use of aspirin

== ENCOUNTER 2018-08-16 16:26 | Inpatient (IN) | payer MEDICARE ==
[2018-08-16 16:37] VITALS: BMI 38.2
[2018-08-16 17:26] LABS: BASO # 0.03 K/mm3 (0.0-2.0); BASO % 0.3 % (0.0-3.0); EOS # 0.1 (0.0-0.7); EOS % 1.4 % (1.5-5.0); GRAN # 5.39 (1.4-6.5); GRAN % 54.6 % (50.0-68.0); HEMOGLOBIN 13.7 g/dL (12.0-16.0); LYMPH # 3.7 (1.2-3.4); LYMPH % 36.9 % (22.0-35.0); MEAN CELL VOLUME 98.6 fl (80.0-105.0); MEAN CORPUSCULAR HEMOGLOBIN 31.8 pg (25.0-35.0); MEAN CORPUSCULAR HGB CONC 32.2 g/dl (31.0-37.0); MEAN PLATELET VOLUME 9.1 fl (7.0-11.0); MONO # 0.7 (0.1-0.6); MONO % 6.8 % (1.0-6.0); RBC 4.31 10^6/uL (3.5-6.1); RED CELL DISTRIBUTION WIDTH 15.3 % (11.5-14.5); WHITE BLOOD COUNT 9.9 10^3/uL (4.5-11.0)
[2018-08-16 17:35] LABS: INR 1.04; PARTIAL THROMBOPLASTIN TIME 32.5 Seconds (25.1-36.5); PROTHROMBIN TIME 11.9 SECONDS (9.4-12.5)
[2018-08-16] MEDS ORDERED: Morphine 4 mg/ml ISec IVP STA (17:41)
[2018-08-16 17:45] LABS: ALB/GLOB RATIO 1.1 (1.1-1.8); ALBUMIN 4.2 g/dL (3.0-4.8); ALT/SGPT 27 U/L (7-56); AST/SGOT 23 U/L (14-36); BLOOD UREA NITROGEN 16 mg/dL (7-21); CALCIUM 9.1 mg/dL (8.4-10.5); GFR NON-AFRICAN AMERICAN > 60
--- NOTE | 2018-08-16 17:48 | ED PDOC ---
Arrival/HPI <JusYamil - Last Filed: 08/16/18 20:41> - General Historian: Patient - History of Present Illness Narrative History of Present Illness (Text): 08/16/18 17:44 63yo female with past medical history of hypertension, COPD, CHF, CAD s/p 8stents bib EMS for complaint of sharp/colicky RUQ abdominal pain that radiates to her right sided back x 3days. States the pain became worse today. +Nausea. Denies vomiting, diarrhea, constipation, fever, chills, chest pain, SOB, diaphoresis, ripping/tearing upper back pain, dizziness, urinary symptoms, georgina honorio, hematemesis, sick contact, any other complaint. Pt reports history of normal Colonoscopy, but couldn't remember exactly when. <Rafita Bermeo - Last Filed: 08/16/18 22:14> - General Chief Complaint: Abdominal Pain Time Seen by Provider: 08/16/18 16:31 Past Medical History - Provider Review Nursing Documentation Reviewed: Yes - Infectious Disease Hx of Infectious Diseases: None - Tetanus Immunization Tetanus Immunization: Unknown - Cardiac Hx Cardiac Disorders: Yes (chest pain, cad) Hx Angina: Yes Hx Congestive Heart Failure: Yes (8-8-15) Hx Peripheral Edema: Yes (on and off +1 ble) Other/Comment: -p stents 4 in rca 1 in lad 2009 - 2 rca /2 rca 2011 - Pulmonary Hx Chronic Obstructive Pulmonary Disease (COPD): Yes - Neurological Hx Neurological Disorder: No - HEENT Hx HEENT Disorder: Yes (WEARS RX GLASSES) - Renal Hx Renal Disorder: No - Endocrine/Metabolic Hx Endocrine Disorders: No - Hematological/Oncological Hx Blood Disorders: Yes Hx Anemia: Yes (blood transfusion) Other/Comment: Pt stated"I was told by Dr Hawkins years ago I am hypersensitive to medications and should have pediatric doses." - Integumentary Hx Dermatological Disorder: Yes Other/Comment: redness to ble cause unknown as pr pt, ble dry skin and multiple skin discolorations, abrasion 1cm round right knee, needs to see dr cummings to have toenails cut due to decreased rom due to r hip arthritis - Musculoskeletal/Rheumatological Hx Falls: Yes (1 wk ago) - Gastrointestinal Hx Gastrointestinal Disorders: Yes (hx nausea, bloating) Hx Gastroesophageal Reflux: Yes Other/Comment: obesity, egd/colonoscopy 8/12/15 dx gastritis r/o celiac r/o h p ylori, diverticulosis, hemorrhoids - Genitourinary/Gynecological Hx Genitourinary Disorders: No - Psychiatric Hx Psychophysiologic Disorder: Yes (SMOKED CIGARETTES) Hx Anxiety: Yes Hx Bipolar Disorder: No Hx Depression: Yes Hx Emotional Abuse: No Hx Hallucinations: No Hx Panic Disorder: Yes Hx Post Traumatic Stress Disorder: No Hx Psychosis: No Hx Physical Abuse: No Hx Schizophrenia: No Hx Sexual Abuse: No Hx Substance Use: No Other/Comment: hx talk therapy - Surgical History Hx Cardiac Catheterization: Yes Hx Coronary Stent: Yes (9 stents) Other/Comment: denies exp lap colonoscopy, endo - Anesthesia Hx Anesthesia: Yes Hx Anesthesia Reactions: No Hx Malignant Hyperthermia: No - Suicidal Assessment Feels Threatened In Home Enviroment: No <Rafita Bermeo A - Last Filed: 08/16/18 22:14> Family/Social History - Physician Review Nursing Documentation Reviewed: Yes Family/Social History: Unknown Family HX Smoking Status: Former Smoker Hx Alcohol Use: No Hx Substance Use: No Hx Substance Use Treatment: No <Rafita Bermeo A - Last Filed: 08/16/18 22:14> Allergies/Home Meds <Yamil Luu - Last Filed: 08/16/18 20:41> <Rafita Bermeo A - Last Filed: 08/16/18 22:14> Allergies/Adverse Reactions: Allergies epinephrine Allergy (Verified 08/16/18 16:37) ANAPHYLAXIS diphenhydramine [From Benadryl] Adverse Reaction (Verified 08/16/18 16:37) RASH weakness, hives,as per pt. "not tolerated well" antiinflammatories Adverse Reaction (Uncoded 08/16/18 16:37) told not to take antinflammatories as per pt pt stated " My follow up clerk, Dr Robbins, told me not to take anti inflammatories because they can affect a womens heart in a bad way." ativan Adverse Reaction (Uncoded 08/16/18 16:37) pt stated "makes me feel energetic" pt stated "med not tolerated well" codeine Adverse Reaction (Uncoded 08/16/18 16:37) feel like "passing out" pt stated feel like "passing out" stated pt. Pt stated med "not tolerated well". morphine Adverse Reaction (Uncoded 08/16/18 16:37) feel like "passing out" stated pt Pt stated "med not tolerated well" oxycontin Adverse Reaction (Uncoded 08/16/18 16:37) feel like "passing out" pt stated pt stated " med not tolerated well" percocet Adverse Reaction (Uncoded 08/16/18 16:37) pt stated " feel like passing out" post cardiac stent after having various pain killers pt took a percocet coded 2011 and wound up in icu as per pt. Pt stated med "not tolerated well" valium Adverse Reaction (Uncoded 08/16/18 16:37) "crying and depressed" pt stated Pt stated med "not tolerated well" xanax Adverse Reaction (Uncoded 08/16/18 16:37) pt stated "makes me feel energetic" Pt stated med "not tolerated well" Home Medications: Home Meds Medication Instructions Recorded Confirmed Acetaminophen [Tylenol] 650 mg PO PRN PRN 07/29/14 08/16/18 diltiaZEM [Cardizem] 30 mg PO QID 02/06/15 08/16/18 Pantoprazole Sodium [Protonix] 40 mg PO BID 03/25/15 08/16/18 Tiotropium [Spiriva] 18 mcg IH DAILY 03/25/15 08/16/18 Clonazepam [Klonopin] 1 mg PO QAM 11/04/17 08/16/18 Clonazepam [Klonopin] 3 mg PO HS 11/04/17 08/16/18 Nitroglycerin [Nitrotab] 0.4 mg SL Q5MIN PRN 12/20/17 08/16/18 Review of Systems - Physician Review All systems were reviewed & negative as marked: Yes - Review of Systems Constitutional: Normal Eyes: Normal ENT: Normal Respiratory: Normal Cardiovascular: Normal Gastrointestinal: Abdominal Pain, Nausea. absent: Constipation, Diarrhea, Vomiting, Hematochezia, Hematemesis Genitourinary Female: Normal Musculoskeletal: Normal Skin: Normal Neurological: Normal Endocrine: Normal Hemo/Lymphatic: Normal Psychiatric: Normal <Diru,Happiness A - Last Filed: 08/16/18 22:14> Physical Exam Vital Signs Temp Pulse Resp BP Pulse Ox 08/16/18 19:34 98.1 F 78 18 160/71 H 95 08/16/18 16:43 98.0 F 71 18 94 L <Yamil Luu - Last Filed: 08/16/18 20:41> Vital Signs Reviewed: Yes Vital Signs Temp Pulse Resp Pulse Ox 08/16/18 16:43 98.0 F 71 18 94 L Temperature: Afebrile Blood Pressure: Normal Pulse: Regular Respiratory Rate: Normal Appearance: Positive for: Well-Appearing, Non-Toxic, Comfortable Pain Distress: None Mental Status: Positive for: Alert and Oriented X 3 - Systems Exam Head: Present: Atraumatic, Normocephalic Pupils: Present: PERRL Extroacular Muscles: Present: EOMI Conjunctiva: Present: Normal Mouth: Present: Moist Mucous Membranes Neck: Present: Normal Range of Motion Respiratory/Chest: Present: Clear to Auscultation, Good Air Exchange. No: Respiratory Distress, Accessory Muscle Use Cardiovascular: Present: Regular Rate and Rhythm, Normal S1, S2. No: Murmurs Abdomen: Present: Tenderness (RUQ tenderness), Normal Bowel Sounds, Other (Soft). No: Distention, Peritoneal Signs, Rebound, Guarding, McBurney's Point Tender, Rovsing's Sign Present Back: Present: Normal Inspection Upper Extremity: Present: Normal Inspection. No: Cyanosis, Edema Lower Extremity: Present: Normal Inspection. No: Edema Neurological: Present: GCS=15, CN II-XII Intact, Speech Normal Skin: Present: Warm, Dry, Normal Color. No: Rashes Psychiatric: Present: Alert, Oriented x 3, Normal Insight, Normal Concentration <Diru,Happiness A - Last Filed: 08/16/18 22:14> Medical Decision Making ED Course and Treatment: 08/16/18 20:39 -i have personally seen and examined the patient. -patient is requesting to restart her protonix which i have ordered for her. -patient is requesting to have her other medications which has been on alf but on review of her current medication list, only cardizem appears to be due and indicated at this time. -in attempting to discuss and sort out this patient's complaints, the patient talks in circles going back and forth about which medications she is allowed to take and which ones she is not. the patient states she is hypersensitive to medications. 08/16/18 20:41 - Lab Interpretations Lab Results: 08/16/18 17:00 08/16/18 17:00 Lab Results 08/16/18 17:46: pO2 45, VBG pH 7.34, VBG pCO2 49.0, VBG HCO3 26.4, VBG Total CO2 27.9, VBG O2 Sat (Calc) 82.2 H, VBG Base Excess 0.0, VBG Potassium 3.8, Glucose 85, Lactate 1.2, FiO2 21.0, Sodium 138.0, Chloride 104.0, Venous Blood Potassium 3.8 08/16/18 17:00: PT 11.9, INR 1.04, APTT 32.5 08/16/18 17:00: Sodium 138, Potassium 4.2, Chloride 106, Carbon Dioxide 25, Anion Gap 11, BUN 16, Creatinine 0.8, Est GFR ( Amer) > 60, Est GFR (Non- Af Amer) > 60, Random Glucose 82, Calcium 9.1, Magnesium 2.0, Total Bilirubin 0.5, AST 23, ALT 27, Alkaline Phosphatase 90, Lactate Dehydrogenase 567, Total Creatine Kinase 67, Troponin I < 0.01 D, NT-Pro-B Natriuret Pep 894 H, Total Protein 7.8, Albumin 4.2, Globulin 3.7, Albumin/Globulin Ratio 1.1 08/16/18 17:00: WBC 9.9, RBC 4.31, Hgb 13.7 D, Hct 42.5, MCV 98.6 D, MCH 31.8, MCHC 32.2, RDW 15.3 H, Plt Count 265, MPV 9.1, Gran % 54.6, Lymph % (Auto) 36.9 H, [place] % (Auto) 6.8 H, Eos % (Auto) 1.4 L, Baso % (Auto) 0.3, Gran # 5.39, Lymph # (Auto) 3.7 H, [place] # (Auto) 0.7 H, Eos # (Auto) 0.1, Baso # (Auto) 0.03 - RAD Interpretation Radiology Orders: 08/16/18 17:02 ABDOMEN COMPLETE [US] Stat 08/16/18 19:32 CHEST PORTABLE [RAD] Stat - Medication Orders Current Medication Orders: Discontinued Medications Acetaminophen (Tylenol 325mg Tab) 650 mg PO STAT STA Stop: 08/16/18 18:13 Last Admin: 08/16/18 20:04 Dose: 650 mg MAR Pain/Vitals Document 08/16/18 20:04 LA (Rec: 08/16/18 20:[address] [facility] [id number]) Pain Reassessment Is This A Pain ReAssessment? Yes Location Left, Right or Bilateral Right Upper or Lower Upper Pain Location Body Site Abdomen Diltiazem HCl (Cardizem) 30 mg PO STAT STA Stop: 08/16/18 20:33 Furosemide (Lasix) 20 mg IVP STAT STA Stop: 08/16/18 19:03 Last Admin: 08/16/18 19:32 Dose: Not Given Non-Admin Reason: Patient Refused Pantoprazole Sodium (Protonix Ec Tab) 40 mg PO STAT STA Stop: 08/16/18 20:34 <Yamil Luu - Last Filed: 08/16/18 20:41> ED Course and Treatment: 08/16/18 22:06 63yo female who present with complaint of RUQ abdominal pain that radiates to her back x 3days Pt was very tangential, going back and fro with her medication, medical history. Labs Abdominal US EKG Pepcid, Morphine chest xray Per RN, pt declined Morphine and Tylenol was ordered. Labs was reviewed and all unremarkable with exception of BNP elevation. Lasix was ordered. EKG Sinus rhythm with PVC @ 97bpm; Biatrial enlargement. None-stemi Chest xray Cardiomegaly. No acute disease process. Abdominal US IMPRESSION: Echogenic liver may be seen in setting of hepatic parenchymal disease or fatty infiltration. On re evaluation pt continue to complain of pain. All result was DW the pt. She was admitted for intractable abdominal pain and CHF Case was DW Dr. Ortega and pt was admitted to his service. He requested Dr. Liao consult. - Lab Interpretations Lab Results: 08/16/18 17:00 Lab Results 08/16/18 17:00: PT 11.9, INR 1.04, APTT 32.5 08/16/18 17:00: WBC 9.9, RBC 4.31, Hgb 13.7 D, Hct 42.5, MCV 98.6 D, MCH 31.8, MCHC 32.2, RDW 15.3 H, Plt Count 265, MPV 9.1, Gran % 54.6, Lymph % (Auto) 36.9 H, [place] % (Auto) 6.8 H, Eos % (Auto) 1.4 L, Baso % (Auto) 0.3, Gran # 5.39, Lymph # (Auto) 3.7 H, [place] # (Auto) 0.7 H, Eos # (Auto) 0.1, Baso # (Auto) 0.03 - RAD Interpretation Radiology Orders: 08/16/18 17:02 ABDOMEN COMPLETE [US] Stat - Medication Orders Current Medication Orders: Discontinued Medications Morphine Sulfate (Morphine) 4 mg IVP STAT STA Stop: 08/16/18 17:42 <Rafita Bermeo - Last Filed: 08/16/18 22:14> Disposition/Present on Arrival <Yamil Luu - Last Filed: 08/16/18 20:41> - Present on Arrival Any Indicators Present on Arrival: No History of DVT/PE: No History of Uncontrolled Diabetes: No Urinary Catheter: No History of Decub. Ulcer: No History Surgical Site Infection Following: None - Disposition Have Diagnosis and Disposition been Completed?: Yes Disposition Time: 19:00 Patient Plan: Admission <Rafita Bermeo - Last Filed: 08/16/18 22:14> - Disposition Diagnosis: CHF (congestive heart failure), Intractable abdominal pain Disposition: HOSPITALIZED Patient Problems: Current Active Problems Problem Status Onset CHF (congestive heart failure) Acute Intractable abdominal pain Acute Condition: STABLE
[2018-08-16 17:54] LABS: B-TYPE NATRIURETIC PEPTIDE 894 pg/mL (0-450); TROPONIN I < 0.01 ng/mL
[2018-08-16 17:57] LABS: VENOUS BLOOD GAS PO2 45 mm/Hg (30-55); VENOUS BLOOD PH 7.34 (7.32-7.43)
--- NOTE | 2018-08-16 18:31 | US ---
HISTORY: RUQ pain COMPARISON: CT abdomen and pelvis with contrast performed 11/04/17 TECHNIQUE: Sonographic evaluation of the abdomen. FINDINGS: LIVER: Measures 15.9 cm in sagittal dimension. Echogenic liver may be seen in setting of hepatic parenchymal disease or fatty infiltration. No focal hepatic mass identified. The main portal vein appears patent with normal directional flow. No intrahepatic bile duct dilatation. GALLBLADDER: No gallstones. No gallbladder wall thickening. Negative sonographic Ceron's sign as assessed by the dull coat mill operator. COMMON BILE DUCT: Measures 4 mm. PANCREAS: Not well visualized. RIGHT KIDNEY: Measures 11.4 x 4.1 x 5.6 cm. No obstructing calculus or hydronephrosis identified. LEFT KIDNEY: Measures 10.4 x 5.3 x 5.7 cm. No obstructing calculus or hydronephrosis identified. SPLEEN: Measures approximately 10.0 cm. AORTA: Limited views appear unremarkable. IVC: Limited views appear unremarkable. OTHER FINDINGS: None. IMPRESSION: Echogenic liver may be seen in setting of hepatic parenchymal disease or fatty infiltration.
[2018-08-16] MEDS ORDERED: Pantoprazole 40 mg EC Tab PO STA (20:33)
[2018-08-16 20:46] LABS: URINE BILIRUBIN NEGATIVE (NEGATIVE); URINE BLOOD NEGATIVE (NEGATIVE); URINE GLUCOSE (UA) NEGATIVE (NEGATIVE); URINE LEUKOCYTE ESTERASE NEGATIVE Leu/uL (NEGATIVE); URINE PROTEIN NEGATIVE mg/dL (<30 mg/dL); URINE UROBILINOGEN 0.2 E.U./dL (<1 E.U./dL)
[2018-08-16 20:47] LABS: URINE APPEARANCE CLEAR (CLEAR); URINE COLOR LIGHT YELLOW (YELLOW)
[2018-08-17] MEDS ORDERED: Lidocaine 5% Patch TD STA (01:30)
--- NOTE | 2018-08-17 09:09 | RAD ---
Date of service: 08/16/2018 HISTORY: admission COMPARISON: 12/24/2017 FINDINGS: LUNGS: Patchy infiltrate in the right lower lobe similar to previous exam PLEURA: No significant pleural effusion identified, no pneumothorax apparent. CARDIOVASCULAR: No aortic atherosclerotic calcification present. Mild cardiomegaly no pulmonary vascular congestion. OSSEOUS STRUCTURES: No significant abnormalities. VISUALIZED UPPER ABDOMEN: Normal. OTHER FINDINGS: None. IMPRESSION: Patchy infiltrate in the right lower lobe
--- NOTE | 2018-08-17 09:55 | CARD ---
APPROVED REPORT Date of service: 08/16/2018 EKG Measurement Heart [id number] <Conclusion> Sinus rhythm with frequent and consecutive premature ventricular complexes Biatrial enlargement Anterior infarct, age undetermined Abnormal ECG
[2018-08-17] MEDS ORDERED: Tiotropium 18 mcg Cap For Inhalation IH SCH (10:00)
[2018-08-17] MEDS: Tiotropium 18 mcg Cap For Inhalation IH SCH (11:16)
[2018-08-17] MEDS: Pantoprazole 40 mg EC Tab PO SCH ×2 (11:17→19:17)
[2018-08-17] MEDS: Lidocaine 5% Patch TD SCH (11:20)
--- NOTE | 2018-08-17 14:29 | CP.PCM.APN ---
Subjective - Date & Time of Evaluation Date of Evaluation: 08/17/18 Time of Evaluation: 11:00 - Subjective Subjective: Pt. seen and examined at bedside. Complains of epigastic pain radiating to right side of lower back. Denied nausea, denied vomitting, denied chest pain, shortness of breath. States pain is better after palpation of right lower back. Tolerating clear liquid diet. Review of Systems - Constitutional Constitutional: As Per HPI - EENT Eyes: As Per HPI Nose/Mouth/Throat: As Per HPI - Cardiovascular Cardiovascular: As Per HPI - Respiratory Respiratory: As Per HPI - Gastrointestinal Gastrointestinal: Abdominal Pain - Genitourinary Genitourinary: As Per HPI - Neurological Neurological: As Per HPI Objective - Vital Signs/Intake and Output Vital Signs (last 24 hours): Temp Pulse Resp BP Pulse Ox 97.7 F 90 16 138/102 H 97 08/17/18 12:00 08/17/18 13:52 08/17/18 12:00 08/17/18 13:52 08/17/18 00:25 Intake and Output: 08/17/18 08/17/18 06:59 18:59 Intake Total 240 Output Total 0 0 Balance 240 0 - Medications Medications: Current Medications Acetaminophen (Tylenol 325mg Tab) 650 mg PO PRN PRN PRN Reason: Pain, moderate (4-7) Last Admin: 08/17/18 13:58 Dose: 650 mg Al Hydrox/Mg Hydrox/Simethicone (Maalox Plus 30 Ml) 30 ml PO Q3H PRN PRN Reason: Heartburn Clonazepam (Klonopin) 1 mg PO QID [facility]; Protocol Last Admin: 08/17/18 13:53 Dose: 1 mg Diltiazem HCl (Cardizem) 30 mg PO QID [facility] Last Admin: 08/17/18 13:52 Dose: 30 mg Lidocaine (Lidoderm) 1 ea TD DAILY [facility] Last Admin: 08/17/18 11:20 Dose: 1 ea Nitroglycerin (Nitrostat Sl Tab) 0.4 mg SL Q5MIN PRN PRN Reason: Pain, moderate (4-7) Pantoprazole Sodium (Protonix Ec Tab) 40 mg PO BID [facility] Last Admin: 08/17/18 11:17 Dose: 40 mg Tiotropium Christmas (Spiriva) 18 mcg IH DAILY [facility] Last Admin: 08/17/18 11:16 Dose: 18 mcg Tizanidine HCl (Zanaflex) 2 mg PO TID RUPERTO - Labs Labs: 08/16/18 17:00 08/16/18 17:00 PT 11.9 SECONDS (9.4-12.5) 08/16/18 17:00 INR 1.04 08/16/18 17:00 APTT 32.5 Seconds (25.1-36.5) 08/16/18 17:00 - Constitutional Appears: Well - Head Exam Head Exam: NORMOCEPHALIC - Eye Exam Eye Exam: Normal appearance - ENT Exam ENT Exam: Mucous Membranes Moist, Normal Exam - Neck Exam Neck Exam: Full ROM - Respiratory Exam Respiratory Exam: Clear to Ausculation Bilateral - Cardiovascular Exam Cardiovascular Exam: REGULAR RHYTHM, +S1, +S2 - GI/Abdominal Exam GI & Abdominal Exam: Soft, Tenderness, Normal Bowel Sounds - Rectal Exam Rectal Exam: Deferred - Extremities Exam Extremities Exam: Full ROM - Back Exam Back Exam: Full ROM, NORMAL INSPECTION - Skin Skin Exam: Dry, Intact Assessment and Plan - Assessment and Plan (Free Text) Assessment: Impressions Abdomen Ultrasound 08/16/18 17:02 IMPRESSION: Echogenic liver may be seen in setting of hepatic parenchymal disease or fatty infiltration. Chest X-Ray 08/16/18 19:32 IMPRESSION: Patchy infiltrate in the right lower lobe Laboratory Results WBC 9.9 10^3/uL (4.5-11.0) 08/16/18 17:00 RBC 4.31 10^6/uL (3.5-6.1) 08/16/18 17:00 Hgb 13.7 g/dL (12.0-16.0) D 08/16/18 17:00 Hct 42.5 % (36.0-48.0) 08/16/18 17:00 MCV 98.6 fl (80.0-105.0) D 08/16/18 17:00 MCH 31.8 pg (25.0-35.0) 08/16/18 17:00 MCHC 32.2 g/dl (31.0-37.0) 08/16/18 17:00 RDW 15.3 % (11.5-14.5) H 08/16/18 17:00 Plt Count 265 10^3/uL (120.0-450.0) 08/16/18 17:00 MPV 9.1 fl (7.0-11.0) 08/16/18 17:00 Gran % 54.6 % (50.0-68.0) 08/16/18 17:00 Lymph % (Auto) 36.9 % (22.0-35.0) H 08/16/18 17:00 [place] % (Auto) 6.8 % (1.0-6.0) H 08/16/18 17:00 Eos % (Auto) 1.4 % (1.5-5.0) L 08/16/18 17:00 Baso % (Auto) 0.3 % (0.0-3.0) 08/16/18 17:00 Gran # 5.39 (1.4-6.5) 08/16/18 17:00 Lymph # (Auto) 3.7 (1.2-3.4) H 08/16/18 17:00 [place] # (Auto) 0.7 (0.1-0.6) H 08/16/18 17:00 Eos # (Auto) 0.1 (0.0-0.7) 08/16/18 17:00 Baso # (Auto) 0.03 K/mm3 (0.0-2.0) 08/16/18 17:00 PT 11.9 SECONDS (9.4-12.5) 08/16/18 17:00 INR 1.04 08/16/18 17:00 APTT 32.5 Seconds (25.1-36.5) 08/16/18 17:00 pO2 45 mm/Hg (30-55) 08/16/18 17:46 VBG pH 7.34 (7.32-7.43) 08/16/18 17:46 VBG pCO2 49.0 (40-60) 08/16/18 17:46 VBG HCO3 26.4 mmol/l (21-28) 08/16/18 17:46 VBG Total CO2 27.9 mmol.L (22-28) 08/16/18 17:46 VBG O2 Sat (Calc) 82.2 % (40-65) H 08/16/18 17:46 VBG Base Excess 0.0 mmol/L (0.0-2.0) 08/16/18 17:46 VBG Potassium 3.8 mmol/L (3.6-5.2) 08/16/18 17:46 Sodium 138.0 mmol/L (132-148) 08/16/18 17:46 Chloride 104.0 mmol/L (98-107) 08/16/18 17:46 Glucose 85 mg/dl (65-105) 08/16/18 17:46 Lactate 1.2 mmol/L (0.7-2.1) 08/16/18 17:46 FiO2 21.0 % 08/16/18 17:46 Sodium 138 mmol/L (132-148) 08/16/18 17:00 Potassium 4.2 mmol/L (3.6-5.0) 08/16/18 17:00 Chloride 106 mmol/L (98-107) 08/16/18 17:00 Carbon Dioxide 25 mmol/L (21-33) 08/16/18 17:00 Anion Gap 11 (10-20) 08/16/18 17:00 BUN 16 mg/dL (7-21) 08/16/18 17:00 Creatinine 0.8 mg/dl (0.7-1.2) 08/16/18 17:00 Est GFR ( Amer) > 60 08/16/18 17:00 Est GFR (Non-Af Amer) > 60 08/16/18 17:00 Random Glucose 82 mg/dL (70-110) 08/16/18 17:00 Calcium 9.1 mg/dL (8.4-10.5) 08/16/18 17:00 Magnesium 2.0 mg/dL (1.7-2.2) 08/16/18 17:00 Total Bilirubin 0.5 mg/dL (0.2-1.3) 08/16/18 17:00 AST 23 U/L (14-36) 08/16/18 17:00 ALT 27 U/L (7-56) 08/16/18 17:00 Alkaline Phosphatase 90 U/L (38-126) 08/16/18 17:00 Lactate Dehydrogenase 567 U/L (333-699) 08/16/18 17:00 Total Creatine Kinase 67 U/L (35-230) 08/16/18 17:00 Troponin I < 0.01 ng/mL D 08/16/18 17:00 NT-Pro-B Natriuret Pep 894 pg/mL (0-450) H 08/16/18 17:00 Total Protein 7.8 g/dL (5.8-8.3) 08/16/18 17:00 Albumin 4.2 g/dL (3.0-4.8) 08/16/18 17:00 Globulin 3.7 gm/dL 08/16/18 17:00 Albumin/Globulin Ratio 1.1 (1.1-1.8) 08/16/18 17:00 Venous Blood Potassium 3.8 mmol/L (3.6-5.2) 08/16/18 17:46 Urine Color Light yellow (YELLOW) 08/16/18 20:00 Urine Appearance Clear (CLEAR) 08/16/18 20:00 Urine pH 6.0 (4.7-8.0) 08/16/18 20:00 Ur Specific [place] 1.020 (1.005-1.035) 08/16/18 20:00 Urine Protein Negative mg/dL (<30 mg/dL) 08/16/18 20:00 Urine Glucose (UA) Negative mg/dL (NEGATIVE) 08/16/18 20:00 Urine Ketones Negative mg/dL (NEGATIVE) 08/16/18 20:00 Urine Blood Negative (NEGATIVE) 08/16/18 20:00 Urine Nitrate Negative (NEGATIVE) 08/16/18 20:00 Urine Bilirubin Negative (NEGATIVE) 08/16/18 20:00 Urine Urobilinogen 0.2 E.U./dL (<1 E.U./dL) 08/16/18 20:00 Ur Leukocyte Esterase Negative [place]/uL (NEGATIVE) 08/16/18 20:00 Assessment/ Plan: 1. Epigastric pain radiating to right side lower back. _ Per GI will check Triple phase CT Scan to further evualate liver. _ Continue with clear liquid diet , advance diet as per GI. 2. Back pain - Obtain MRI of lumbar, Hip and Thoracic Spine. 3. Patchy infiltrate right lower lobe, currently afebrile, no leukocytosis, asymptomatic may be chronic vs. acute. -Continue to monitor respiratory status, Can consider DC telemetry F/u GI workup. Recs per GI, F/u results of MRI, Pt noted to be ambulating, consider DC home pending GI clearance.
--- NOTE | 2018-08-17 15:30 | PN ---
DATE: 08/17/2018 SUBJECTIVE: The patient is a 63-year-old female who was admitted to the [facility] yesterday with right upper quadrant pain. CAT scan and ultrasound of the abdomen have been negative for cholecystitis or cholelithiasis. The patient is known to have a past medical history positive for gastroesophageal reflux disease, coronary artery disease status post PTCA. She is also have a history of anxiety and depression. When seen today, her is at bedside. The patient is awake, alert and oriented. She still has some amount of pain over the right upper abdomen and right flank. While visiting with the patient, she attempted to sit up in bed and suffered a severe spasm in the right lower rib and right lower thoracic spine area. On physical examination her lungs were clear. Heart is regular. The thoracic spine is nontender on palpation. There is however some tenderness on palpation of the ribs over the right side. She was evaluated by Dr. Fuller covering for Dr. Liao, the supervisor belt and link assembly. He ordered a CAT scan of the liver to be done to further evaluate the area of her pain. The patient received a Lidoderm patch over the right flank; however, to no avail the pain persists because of the spasm, I have witnessed during the exam. I am ordering Zanaflex 2 mg to be taken three times a day. The patient is very sensitive to all medicines. I am also ordering an MRI of the thoracic spine, lumbar spine, and right hip as the patient had been complaining of the lower back pain and hip pain for quite some time and may be an extension of a thoracic spine discopathy. We will reevaluate the patient again in the morning. Neftaly Wei MD RAFA
--- NOTE | 2018-08-17 15:39 | CON ---
DATE: 08/17/2018 GASTROENTEROLOGY CONSULTATION REQUESTING PHYSICIAN: Neftaly Wei MD This is Dr. Fuller covering for Dr. Liao. REASON FOR CONSULTATION: I have been asked to see this 63-year-old female with multiple comorbidities including coronary artery disease status post 9 coronary artery stents, COPD, congestive heart failure, hypertension, morbid obesity, lumbosacral disk disease, degenerative arthritis of her right hip, who comes to the hospital with increasing right-sided abdominal pain for 3 days. The pain is colicky. It is also continuous and radiates to around her back. This is associated with some nausea. She denies any vomiting, fever, chills, jaundice, chest pain, shortness of breath. She has a history of steatosis of the liver. She had a CT scan of the abdomen and pelvis back in 09/2017, which revealed steatosis of the liver. Ultrasound of the abdomen performed in the hospital this admission revealed the same. She denies any fevers or chills. PAST MEDICAL HISTORY: As above. Again, she has a history of coronary artery disease requiring 9 cardiac stents, CHF, COPD, hypertension, lumbosacral disk disease, degenerative joint disease of her right hip, GERD, and diverticulosis. PAST SURGICAL HISTORY: Unremarkable. SOCIAL HISTORY: She denies cigarette smoking or alcohol use. FAMILY HISTORY: Noncontributory. REVIEW OF SYSTEMS: A 14-point review of systems is notable for right upper quadrant and right flank pain, nausea, GERD. MEDICATIONS AT HOME: Include Tylenol, diltiazem, Spiriva, pantoprazole, nitroglycerin, and Klonopin. PHYSICAL EXAMINATION: GENERAL: Well-developed female, lying in bed, in no acute distress. VITAL SIGNS: Reveal temperature of 98.5, blood pressure 134/91, heart rate of 80. HEENT: Reveals sclerae to be white. Conjunctivae pink. NECK: Supple. CHEST: Lungs are clear. HEART: Exam reveals a regular rate and rhythm. ABDOMEN: Soft, nontender. No mass. EXTREMITIES: Show no edema. LABORATORY DATA: Reveal normal urine. Chemistries reveal normal electrolytes, normal AST, ALT, alk phos. BNP is mildly elevated at 894. Coags are normal. CBC reveals white blood cell count 9.9, hemoglobin 13.7, platelet count of 265,000. IMPRESSION: A 63-year-old female with increasing right upper quadrant and right flank pain for the last 3 days. Ultrasound is negative for gallstones. She does have fatty liver on ultrasound and prior CAT scan imaging back in 09/2017. Etiology of the abdominal pain is unclear, but may be related to hepatic steatosis, musculoskeletal abdominal pain. RECOMMENDATIONS: 1. We will request a triple-phase CT scan of the liver to rule out an underlying liver lesion. 2. Can try analgesics such as acetaminophen. 3. We will try a Lidoderm patch to the right upper quadrant. Maximo Fuller MD
--- NOTE | 2018-08-17 19:24 | HP ---
DATE OF EXAM: 08/17/2018 HISTORY OF PRESENT ILLNESS: The patient is a 63-year-old female who presented to the emergency room of the [facility] complaining of severe right upper quadrant pain. She described the pain as being a stabbing type pain originating in the right upper quadrant radiating around to the back. Pain had been going on for several days, therefore she finally presented to the emergency room where she is evaluated and admitted. PAST MEDICAL HISTORY: The patient is known to have a past medical history positive for osteoarthritis, congestive heart failure, chronic bronchitis, anxiety, depression, gastroesophageal reflux, and coronary artery disease. She is status post PTCA. SOCIAL HISTORY: She is a nonsmoker and nonalcoholic drinker. She had smoked cigarettes in the past. ALLERGIES: SHE IS KNOWN TO BE ALLERGIC TO MULTIPLE MEDICATIONS INCLUDING EPINEPHRINE, BENADRYL, ANTI-INFLAMMATORIES, ATIVAN, CODEINE, MORPHINE, OXYCONTIN, PERCOCET, VALIUM, AND XANAX. MEDICATIONS: At the time of admission included Tylenol 650 mg as needed for pain, Cardizem 30 mg q.i.d., pantoprazole 40 mg b.i.d., Spiriva 18 mcg inhaled daily, Klonopin 1 mg by mouth four times a day. and nitroglycerin sublingual tablets. REVIEW OF SYSTEMS: Otherwise unremarkable. PHYSICAL EXAMINATION: VITAL SIGNS: The blood pressure is 160/71, heart rate is 78 and she is afebrile at 98.1 degrees Fahrenheit. HEAD, EYES, EARS, NOSE AND THROAT: Unremarkable. NECK: Supple with no lymphadenopathy. No goiter. LUNGS: Clear to auscultation and percussion. HEART: Regular. No murmurs are appreciated. ABDOMEN: Soft and nontender. Bowel sounds are normal. There is some tenderness on deep palpation of the lower ribs in the right upper quadrant as well as the ribs in the right flank and right back. The spine is nontender on palpation. EXTREMITIES: Free of cyanosis, clubbing or edema. NEUROLOGIC: The patient is awake, alert and oriented with no focal neurological signs. LABORATORY STUDIES: Reveal the white blood cell count is 9.9, hemoglobin and hematocrit are 13.7 and 42.5 respectively, and platelet count is 265. Sodium is 138, potassium 4.2, blood urea nitrogen is 16, creatinine 0.8, and glucose is 82. CAT scan of the abdomen was done, which was essentially normal. EKG showed regular sinus rhythm with premature ventricular contractions, biatrial enlargement, and old anterior wall myocardial infarction. Chest x-ray shows a right lower lobe infiltrate, which is chronic changes and it is unchanged from the last chest x-ray of several months ago. ASSESSMENT AND PLAN: So, the patient is admitted with right upper quadrant pain, rule out cholecystitis. Consultation from Dr. Liao, the apparatus cleaner is requested. The patient will be reevaluated in the morning. Neftaly Wei MD
[2018-08-18] MEDS: Pantoprazole 40 mg EC Tab PO SCH ×2 (10:44→18:03)
[2018-08-18] MEDS: Tiotropium 18 mcg Cap For Inhalation IH SCH (10:44)
[2018-08-18] MEDS: Lidocaine 5% Patch TD SCH (10:44)
--- NOTE | 2018-08-18 11:58 | MRI ---
Date of service: 08/17/2018 PROCEDURE: MR LUMBAR SPINE WITHOUT CONTRAST HISTORY: Neuropathy COMPARISON: None available. TECHNIQUE: Multiecho multiplanar sequences were performed through the lumbar spine without the use of intravenous contrast. FINDINGS: Normal lumbar lordosis. Vertebral body heights are preserved. Marrow signal unremarkable. Conus medullaris unremarkable at the level of Paraspinal soft tissues are unremarkable. T12-L1: No disc herniation, spinal canal stenosis or neural foraminal narrowing. L1-2: No disc herniation, spinal canal stenosis or neural foraminal narrowing. L2-3: No disc herniation, spinal canal stenosis or neural foraminal narrowing. L3-4: Disc bulge without stenosis L4-5: There is a large central disc herniation which produces severe stenosis and compression of the thecal sac. L5-S1: Large left paracentral disc herniation which compresses the thecal sac and left S1 nerve root OTHER FINDINGS: The report concurs with the preliminary [employer] report IMPRESSION: L4-5.There is a large central disc herniation which produces severe stenosis and compression of the thecal sac. L5-S1. Large left paracentral disc herniation which compresses the thecal sac and left S1 nerve root
--- NOTE | 2018-08-18 12:04 | MRI ---
Date of service: 08/17/2018 PROCEDURE: MR THORACIC SPINE WITHOUT CONTRAST HISTORY: Neuropathy COMPARISON: None available. TECHNIQUE: Multiecho multiplanar sequences were performed through the thoracic spine without the use of intravenous contrast. FINDINGS: ALIGNMENT: Normal thoracic spinal alignment. Normal thoracic kyphosis. VERTEBRA: Vertebral body height are preserved. MARROW: Marrow signal unremarkable. PARASPINAL SOFT TISSUES: Unremarkable. CORD: Unremarkable thoracic cord. No volume loss, signal abnormality or syrinx. DISCS: Large right-sided disc herniation at T9-10 extending into the neural foramen. No significant central stenosis. Severe right-sided foraminal stenosis. Disc degeneration in the mid thoracic spine with loss of disc height. OTHER FINDINGS: The [employer] consultant film shows degenerative changes in the cervical spine. IMPRESSION: Large right-sided disc herniation at T9-10 extending into the neural foramen. No significant central stenosis. Severe right-sided foraminal stenosis. Disc degeneration in the mid thoracic spine with loss of disc height.
--- NOTE | 2018-08-18 12:06 | MRI ---
Date of service: 08/17/2018 PROCEDURE: MRI of the right hip without contrast HISTORY: Pain COMPARISON: TECHNIQUE: MRI of the right hip was performed in multiple planes using multiple pulse sequences. FINDINGS: Severe degenerative changes are seen in the right hip with joint space narrowing as well as subchondral cyst formation and bony sclerosis. There is no evidence of acute fracture. The left hip is unremarkable. The pelvis is unremarkable. Bony degenerative changes are seen in the right superior acetabulum. The report concurs with the preliminary [employer] report IMPRESSION: Severe degenerative changes are seen in the right hip with joint space narrowing as well as subchondral cyst formation and bony sclerosis. There is no evidence of acute fracture.
--- NOTE | 2018-08-18 12:50 | CT ---
Date of service: 08/18/2018 PROCEDURE: CT Abdomen and Pelvis with and without intravenous contrast HISTORY: right sided abdominal pain, rad to back COMPARISON: None. TECHNIQUE: Axial images of the abdomen were obtained in the pre contrast, portal venous and delayed phases of enhancement. Coronal and sagittal reformats were generated. Contrast dose: 150 cc of Omni 350 Radiation dose: Total exam DLP = 2072.52 mGy-cm. This CT exam was performed using one or more of the following dose reduction techniques: Automated exposure control, adjustment of the mA and/or kV according to patient size, and/or use of iterative reconstruction technique. FINDINGS: LOWER THORAX: Unremarkable. LIVER: Unremarkable. No gross lesion or ductal dilatation. GALLBLADDER AND BILE DUCTS: Unremarkable. PANCREAS: Unremarkable. No gross lesion or ductal dilatation. SPLEEN: Unremarkable. ADRENALS: Unremarkable. No mass. KIDNEYS AND URETERS: Unremarkable. No hydronephrosis. No solid mass. VASCULATURE: Unremarkable. No aortic aneurysm. Aortic calcification BOWEL: Unremarkable. No obstruction. No gross mural thickening. APPENDIX: Normal appendix. PERITONEUM: Unremarkable. No free fluid. No free air. LYMPH NODES: Unremarkable. No enlarged lymph nodes. BLADDER: Unremarkable. REPRODUCTIVE: Unremarkable. BONES: No acute fracture. OTHER FINDINGS: None. IMPRESSION: No acute intra-abdominal findings
--- NOTE | 2018-08-18 17:58 | PN ---
DATE: 08/18/2018 This note is for Dr. Liao, Dr. Fuller covering. SUBJECTIVE: The patient now complains of more epigastric pain. Yesterday her pain was more in her right flank. She underwent an MRI of her thoracic and lumbar spine as well as a hip MRI yesterday; results are pending. She did not have her triple-phase CT of the liver. She denies any nausea or vomiting. She also now is complaining of constipation. PHYSICAL EXAMINATION VITAL SIGNS: Reveal temperature 97.9, blood pressure 148/89, heart rate of 87. HEENT: Reveals sclerae to be white. Conjunctivae pink. NECK: Supple. CHEST AND LUNGS: Clear. HEART: Reveals regular rate and rhythm. ABDOMEN: Soft, nontender. No mass. EXTREMITIES: Show no edema. LABORATORY DATA: Reveal white blood cell count of 9.9, hemoglobin of 13.7. Chemistries reveal no new data. IMPRESSION: A 63-year-old female with epigastric pain and right flank pain, with CT and ultrasound showing steatosis of the liver. I suspect that some of her pain is musculoskeletal in nature. She has had an upper endoscopy with Dr. Liao in the not too distant past. RECOMMENDATIONS: 1. Continue current treatment. 2. I will start the patient on Colace 100 mg three times a day for constipation. 3. Await CT scan of the liver results. 4. Await results of the MRI of the thoracic, lumbar and hip. Maximo Fuller MD
--- NOTE | 2018-08-18 22:42 | CP.PCM.PCO ---
<Alvin Del Castillo - Last Filed: 08/18/18 22:42> Physician Communication Note - Physician Communication Note Physician Communication Note: Patient found to be confused from baseline. Held clonepin and zanaflex <Stephanie Tamez - Last Filed: 08/19/18 02:47> Attending/Attestation - Attestation I have personally seen and examined this patient.: Yes I have fully participated in the care of the patient.: Yes I have reviewed all pertinent clinical information: Yes Notes (Text): 08/19/18 02:42 S:Patient was seen later on. She complains of anxiety. She is sitting in bed,as per nurse, she is confused,agitated. Patient has no specific complaints. States that she can not take Xanaflex or Flexaril. She is allergic to multipla meds including benadry. O: VSS. Oriented. Not in distess. LUNGS: Normal breathing pattern. A:Anxiety. P: Her Klonopin was held a few times. Will give one dose now.
[2018-08-19] MEDS: Alum-Mag Hydrox-Simethicone Susp (30 mL) PO PRN (00:18)
[2018-08-19] MEDS: Pantoprazole 40 mg EC Tab PO SCH ×3 (07:51→18:29)
[2018-08-19] MEDS: Lidocaine 5% Patch TD SCH (10:10)
[2018-08-19] MEDS: Tiotropium 18 mcg Cap For Inhalation IH SCH (10:10)
[2018-08-19] MEDS: Aspirin 325 mg EC Tablets PO SCH (15:46)
--- NOTE | 2018-08-19 17:11 | PN ---
DATE: 08/19/2018 This visit is for Dr. Liao SUBJECTIVE: The patient continues to complain of right upper quadrant and some epigastric pain. MRI of the thoracic and lumbar spine reveal right-sided herniated disc at T9 and T10. She also has multilevel disc herniation in the lumbar spine. She denies any nausea or vomiting. PHYSICAL EXAMINATION: VITAL SIGNS: Reveal temperature of 97.8, blood pressure 163/90, heart rate of 79. HEENT: Reveal sclerae to be white. Conjunctivae pink. NECK: Supple. CHEST: Lungs are clear. HEART: Exam reveals regular rate and rhythm. ABDOMEN: Soft. Mild right upper quadrant epigastric tenderness to deep palpation. EXTREMITIES: Show no edema. LABORATORY DATA: No new laboratory data are available. IMPRESSION: A 63-year-old female with persistent right upper quadrant and epigastric pain with right-sided herniated disc at T9 and T10. I suspect that some of her pain is musculoskeletal. She does have a history of peptic ulcer disease in the distant past. She also has a history of coronary artery disease which appears to be stable. RECOMMENDATIONS: The patient will be scheduled for an upper endoscopy in the morning. Dr. Liao will resume her care starting Monday08/20/2018. Maximo Fuller MD
[2018-08-20] MEDS: Tiotropium 18 mcg Cap For Inhalation IH SCH (09:06)
[2018-08-20] MEDS: Aspirin 325 mg EC Tablets PO SCH (09:06)
[2018-08-20] MEDS: Lidocaine 5% Patch TD SCH (09:07)
[2018-08-20] MEDS: Pantoprazole 40 mg EC Tab PO SCH ×2 (09:07→18:15)
--- NOTE | 2018-08-20 11:01 | CON ---
DATE: 08/20/2018 ORTHOPEDIC CONSULT REPORT LOCATION: Room 577, bed 2; going to 568, bed 1. HISTORY OF PRESENT ILLNESS: The patient is a 63-year-old female. The patient complains of right hip pain. Osteoarthritis is seen in the x-ray with decreased joint space and erosion and mild subluxation. Ambulates with a cane. She also has spinal stenosis of the dorsolumbar spine. I told her I cannot handle that and she would like to see a spine surgeon of Dr. Wei's choice. In the meantime, I continued with the physical therapy for ambulation and strengthening exercises of her paraspinal muscles and her abductor muscles of the hip to give her some more strength, so she does not fall and she has to walk with a cane or a walker. Whenever she would like to have total hip replaced, I told her that could be done and that would eradicate the pain, but she understood the complications such as infection, mechanical loosening, and reaction to anesthesia, but I will follow her while she is in the hospital and start physical therapy for ambulation with a cane or a walker for the osteoarthritis of her right hip. Neftaly Chappell DO
--- NOTE | 2018-08-20 13:04 | PN ---
DATE: 08/19/2018 SUBJECTIVE: The patient is a 63-year-old female, with a history of gastroesophageal reflux, coronary artery disease status post PTCA, anxiety, and depression, who presented to the emergency room complaining of right upper quadrant pain. She was admitted on the 08/16/2018. Workup included a CAT scan of the abdomen and pelvis with ultrasound which was negative for cholelithiasis and cholecystitis. She is being followed by Dr. Fuller who is covering for Dr. Liao. She was suffering severe muscular tight spasms which witnessed on her earlier visit MRI of the thoracic, lumbar, spine, and hips was ordered. The hip showed degenerative changes. Lumbar spine showed degenerative changes, but the thoracic spine showed a herniated disc to the right at T9 and T10. I feel that this is causing the radiculopathy which the patient is experiencing. The patient underwent CAT scan of the liver and this showed possible fatty liver. The patient is scheduled to undergo esophagogastroduodenoscopy tomorrow. She had attempted taking muscle relaxers Zanaflex as ordered for the muscle spasms in the right back and right upper quadrant with adverse effects. The patient states that she was hallucinating, feeling dizzy, totally disoriented as results. The patient is known to have a long list of adverse reactions to various medications. At this point, I suggested the patient she only needs to be treated for pain and muscle spasms which is all that we can do. At her insistence, we are asking Dr. Chappell, the orthopedist and Dr. oJsh Campo, the pain specialist to consult to possibly relieve the patient's symptoms of this radiculopathy. Neftaly Wei MD
--- NOTE | 2018-08-20 13:31 | PN ---
DATE: 08/18/2018 DAILY PROGRESS NOTE SUBJECTIVE: The patient is a 63-year-old female who presented to the emergency room and is admitted with right upper quadrant pain. The pain was quite persistent, intractable. During her hospital stay, she underwent CAT scan and ultrasound of the abdomen which was negative for cholecystitis and cholelithiasis. She is known to have a past medical history for gastroesophageal reflux, coronary artery disease status post PTCA. She also has a history of anxiety and depression. The patient was seen today, August 18 in [address] hallway outside of CAT scan. Yesterday she had undergone MRI of the thoracic spine and lumbar spine and hips. The MRI shows severe degenerative changes of the hips. She had some degenerative changes of the lumbar spine also, but of note was a herniated disc from T9-T10 bulging to the right. This could very well explain neurogenic pain the patient was feeling in the right upper quadrant from the abdomen to the back. The patient earlier this morning had a CT scan of the liver done as suggested by Dr. Fuller, because of her abdominal pain. The patient is scheduled to undergo esophagogastroduodenoscopy on Monday to further evaluate her abdominal symptoms. However, I feel confident that her discomfort is secondary to the herniated disc at T9-T10. I will suggest a muscle relaxer, Zanaflex at a low dose 2 mg to be taken. We will continue to follow the patient closely. Neftaly Wei MD
[2018-08-20] MEDS ORDERED: Sodium Chloride 0.9% 1,000 ML IV SCH ×2 (15:15→16:30)
[2018-08-20] MEDS ORDERED: Midazolam 2 MG/2 ML VIAL ONE (15:44)
[2018-08-20] MEDS ORDERED: Propofol 10 mg/ml Inj (20 ML) ONE (15:44)
[2018-08-20] MEDS ORDERED: Etomidate 20 mg/10ml Inj IV ONE (15:44)
[2018-08-20] MEDS ORDERED: Lidocaine 1% Inj (20ml) ONE (15:46)
--- NOTE | 2018-08-20 16:43 | CP.PCM.PCO ---
Physician Communication Note - Physician Communication Note Physician Communication Note: EGD this afternoon,showed gastric ulcers and erosions.PT eval pending
[2018-08-20] MEDS: Alum-Mag Hydrox-Simethicone Susp (30 mL) PO PRN ×2 (18:15→22:11)
[2018-08-20] MEDS: Sucralfate 1 gm/10 ml Oral Susp UD PO SCH (22:10)
[2018-08-21] MEDS: Sucralfate 1 gm/10 ml Oral Susp UD PO SCH ×4 (06:35→21:59)
--- NOTE | 2018-08-21 08:25 | PN ---
DATE: 08/21/2018 LOCATION: Room 577, bed 1. SUBJECTIVE: The patient was seen for osteoarthritis of the right hip. I explained yesterday that surgery could be done, but when she gets over her medical issues and will be cleared to take to [facility] to do a right total hip and as far as she understands the postop precautions, and responsibility on her part is not to twist or flex her knee and hip where the prosthesis could dislocate. Once she gets settled and secured and better medically, I could see her in the office in a week. I could plan to do a right total hip replacement in the near future. In the meantime, we will give physical therapy to get her core muscles and hip muscles stronger. Neftaly Chappell DO
--- NOTE | 2018-08-21 09:17 | CP.PCM.PN ---
<Herminio Ramirez - Last Filed: 08/21/18 17:37> Subjective - Date & Time of Evaluation Date of Evaluation: 08/21/18 Time of Evaluation: 08:20 - Subjective Subjective: PGY-4 GI Fellow Prog Note Pt sitting up in bed eating breakfast when seen this AM. States he is doing well, tolerating soft diet without difficulty. 5 point ROS negative other than stated above. Objective - Vital Signs/Intake and Output Vital Signs (last 24 hours): Temp Pulse Resp BP Pulse Ox 97.3 F L 66 20 165/75 H 96 08/21/18 08:29 08/21/18 08:29 08/21/18 08:29 08/21/18 08:29 08/21/18 08:29 - Medications Medications: Current Medications Acetaminophen (Tylenol 325mg Tab) 650 mg PO PRN PRN PRN Reason: Pain, moderate (4-7) Last Admin: 08/20/18 22:12 Dose: 650 mg Al Hydrox/Mg Hydrox/Simethicone (Maalox Plus 30 Ml) 30 ml PO Q3H PRN PRN Reason: Heartburn Last Admin: 08/20/18 22:11 Dose: 30 ml Aspirin (Ecotrin) 325 mg PO DAILY [facility] Last Admin: 08/20/18 09:06 Dose: 325 mg Clonazepam (Klonopin) 1 mg PO QID [facility]; Protocol Last Admin: 08/20/18 22:11 Dose: 1 mg Diltiazem HCl (Cardizem) 30 mg PO QID [facility] Last Admin: 08/20/18 22:11 Dose: 30 mg Docusate Sodium (Colace) 100 mg PO TID [facility] Last Admin: 08/20/18 20:38 Dose: Not Given Famotidine (Pepcid) 40 mg PO HS [facility] Last Admin: 08/20/18 22:13 Dose: 40 mg Lidocaine (Lidoderm) 1 ea TD DAILY [facility] Last Admin: 08/20/18 09:07 Dose: 1 ea Nitroglycerin (Nitrostat Sl Tab) 0.4 mg SL Q5MIN PRN PRN Reason: Pain, moderate (4-7) Last Admin: 08/17/18 19:31 Dose: 0.4 mg Pantoprazole Sodium (Protonix Ec Tab) 40 mg PO BID [facility] Last Admin: 08/20/18 18:15 Dose: 40 mg Sucralfate (Carafate Oral Susp) 1 gm PO 0630,1130,1630,2200 [facility] Last Admin: 08/21/18 06:35 Dose: Not Given Tiotropium [place] (Spiriva) 18 mcg IH DAILY [facility] Last Admin: 08/20/18 09:06 Dose: 18 mcg - Labs Labs: 08/16/18 17:00 08/16/18 17:00 PT 11.9 SECONDS (9.4-12.5) 08/16/18 17:00 INR 1.04 08/16/18 17:00 APTT 32.5 Seconds (25.1-36.5) 08/16/18 17:00 - Constitutional Appears: Well, No Acute Distress - Head Exam Head Exam: ATRAUMATIC, NORMAL INSPECTION - Eye Exam Eye Exam: EOMI. absent: Scleral icterus - ENT Exam ENT Exam: Mucous Membranes Moist. absent: Mucous Membranes Dry - Respiratory Exam Respiratory Exam: NORMAL BREATHING PATTERN. absent: Accessory Muscle Use, Respiratory Distress - GI/Abdominal Exam GI & Abdominal Exam: Soft, Normal Bowel Sounds. absent: Bruit, Distended, Firm, Guarding, Rigid, Tenderness, Mass, Organomegaly, Pulsatile Mass Assessment and Plan - Assessment and Plan (Free Text) Assessment: 63 yo WF with Anxiety, CAD, h/o PUD presenting with abd pain # Abnormal Esophageal Mucosa: Seen on EGD 08/20/18. Possible short seg Martínez's at distal esophagus, but the remainder of esophagus had diffuse superficial peeling of mucosa in linear pattern. Unlikely the cause of patient's abd pain. # PUD: Multiple shallow ulcers seen in antrum. Perhaps is contributing to symptoms. # T9-10 Radiculopathy on R side: likely contributing to RUQ pain. Plan: - F/u EGD path results from 08/20/18 - Cont PPI, should try to wean off or lower dose, can be done as outpatient - ASA 81 mg if OK with cardiology (pt is on 325 mg) given PUD seen - H2RA PRN - Soft diet Pt discussed with Dr. Liao; please see attestation for further recs. <Ryan Liao V - Last Filed: 08/21/18 22:33> Objective - Vital Signs/Intake and Output Vital Signs (last 24 hours): Temp Pulse Resp BP Pulse Ox 97.8 F 78 20 169/91 H 93 L 08/21/18 14:11 08/21/18 21:51 08/21/18 14:11 08/21/18 21:51 08/21/18 14:11 Intake and Output: 08/21/18 08/22/18 18:59 06:59 Intake Total 520 660 Balance 520 660 - Medications Medications: Current Medications Acetaminophen (Tylenol 325mg Tab) 650 mg PO PRN PRN PRN Reason: Pain, moderate (4-7) Last Admin: 08/21/18 21:51 Dose: 650 mg Al Hydrox/Mg Hydrox/Simethicone (Maalox Plus 30 Ml) 30 ml PO Q3H PRN PRN Reason: Heartburn Last Admin: 08/21/18 10:24 Dose: 30 ml Aspirin (Ecotrin) 325 mg PO DAILY [facility] Last Admin: 08/21/18 10:14 Dose: 325 mg Clonazepam (Klonopin) 1 mg PO QID [facility]; Protocol Last Admin: 08/21/18 21:51 Dose: 1 mg Diltiazem HCl (Cardizem) 30 mg PO QID [facility] Last Admin: 08/21/18 21:51 Dose: 30 mg Docusate Sodium (Colace) 100 mg PO TID [facility] Last Admin: 08/21/18 18:07 Dose: 100 mg Famotidine (Pepcid) 40 mg PO HS [facility] Last Admin: 08/21/18 21:59 Dose: Not Given Lidocaine (Lidoderm) 1 ea TD DAILY [facility] Last Admin: 08/21/18 10:16 Dose: 1 ea Nitroglycerin (Nitrostat Sl Tab) 0.4 mg SL Q5MIN PRN PRN Reason: Pain, moderate (4-7) Last Admin: 08/17/18 19:31 Dose: 0.4 mg Pantoprazole Sodium (Protonix Ec Tab) 40 mg PO BID [facility] Last Admin: 08/21/18 18:07 Dose: 40 mg Sucralfate (Carafate Oral Susp) 1 gm PO 0630,1130,1630,2200 [facility] Last Admin: 08/21/18 21:59 Dose: Not Given Tiotropium [place] (Spiriva) 18 mcg IH DAILY [facility] Last Admin: 08/21/18 10:15 Dose: 18 mcg - Labs Labs: 08/16/18 17:00 08/16/18 17:00 PT 11.9 SECONDS (9.4-12.5) 08/16/18 17:00 INR 1.04 08/16/18 17:00 APTT 32.5 Seconds (25.1-36.5) 08/16/18 17:00 Attending/Attestation - Attestation I have personally seen and examined this patient.: No I have fully participated in the care of the patient.: Yes I have reviewed all pertinent clinical information, including history, physical exam and plan: Yes Notes (Text): This is an addendum to GI progress report dictated by the GI Fellow. . Medical records, lab studies, imagings were reviewed. Last 24 hours events reviewed. Agreed with the above treatment plan as outlined in GI Fellow 's notes with the addition of the following 08/21/18 22:20
[2018-08-21] MEDS: Pantoprazole 40 mg EC Tab PO SCH ×2 (09:28→18:07)
[2018-08-21] MEDS: Aspirin 325 mg EC Tablets PO SCH (10:14)
[2018-08-21] MEDS: Tiotropium 18 mcg Cap For Inhalation IH SCH (10:15)
[2018-08-21] MEDS: Lidocaine 5% Patch TD SCH (10:16)
[2018-08-21] MEDS: Alum-Mag Hydrox-Simethicone Susp (30 mL) PO PRN (10:24)
--- NOTE | 2018-08-21 13:11 | CP.PCM.APN ---
Subjective - Date & Time of Evaluation Date of Evaluation: 08/21/18 Time of Evaluation: 11:00 - Subjective Subjective: Pt seen and examined at bedside. C/O lower back pain and R hip pain. Denies abdominal pain, nausea or vomiting. Objective - Vital Signs/Intake and Output Vital Signs (last 24 hours): Temp Pulse Resp BP Pulse Ox 97.3 F L 66 20 165/75 H 96 08/21/18 08:29 08/21/18 10:13 08/21/18 08:29 08/21/18 10:13 08/21/18 08:29 - Medications Medications: Current Medications Acetaminophen (Tylenol 325mg Tab) 650 mg PO PRN PRN PRN Reason: Pain, moderate (4-7) Last Admin: 08/21/18 10:24 Dose: 650 mg Al Hydrox/Mg Hydrox/Simethicone (Maalox Plus 30 Ml) 30 ml PO Q3H PRN PRN Reason: Heartburn Last Admin: 08/21/18 10:24 Dose: 30 ml Aspirin (Ecotrin) 325 mg PO DAILY [facility] Last Admin: 08/21/18 10:14 Dose: 325 mg Clonazepam (Klonopin) 1 mg PO QID [facility]; Protocol Last Admin: 08/21/18 10:14 Dose: 1 mg Diltiazem HCl (Cardizem) 30 mg PO QID [facility] Last Admin: 08/21/18 10:13 Dose: 30 mg Docusate Sodium (Colace) 100 mg PO TID [facility] Last Admin: 08/21/18 10:14 Dose: 100 mg Famotidine (Pepcid) 40 mg PO HS [facility] Last Admin: 08/20/18 22:13 Dose: 40 mg Lidocaine (Lidoderm) 1 ea TD DAILY [facility] Last Admin: 08/21/18 10:16 Dose: 1 ea Nitroglycerin (Nitrostat Sl Tab) 0.4 mg SL Q5MIN PRN PRN Reason: Pain, moderate (4-7) Last Admin: 08/17/18 19:31 Dose: 0.4 mg Pantoprazole Sodium (Protonix Ec Tab) 40 mg PO BID [facility] Last Admin: 08/21/18 09:28 Dose: 40 mg Sucralfate (Carafate Oral Susp) 1 gm PO 0630,1130,1630,2200 [facility] Last Admin: 08/21/18 11:30 Dose: 1 gm Tiotropium [place] (Spiriva) 18 mcg IH DAILY [facility] Last Admin: 08/21/18 10:15 Dose: 18 mcg - Labs Labs: 08/16/18 17:00 08/16/18 17:00 PT 11.9 SECONDS (9.4-12.5) 08/16/18 17:00 INR 1.04 08/16/18 17:00 APTT 32.5 Seconds (25.1-36.5) 08/16/18 17:00 - Constitutional Appears: Well, No Acute Distress - Head Exam Head Exam: ATRAUMATIC - Eye Exam Eye Exam: Normal appearance - ENT Exam ENT Exam: Normal Exam - Neck Exam Neck Exam: Full ROM, Normal Inspection - Respiratory Exam Respiratory Exam: Clear to Ausculation Bilateral, NORMAL BREATHING PATTERN - Cardiovascular Exam Cardiovascular Exam: REGULAR RHYTHM, +S1, +S2 - GI/Abdominal Exam GI & Abdominal Exam: Soft, Normal Bowel Sounds - Rectal Exam Rectal Exam: Deferred - Extremities Exam Extremities Exam: Normal Inspection - Neurological Exam Neurological Exam: Alert, Awake, Oriented x3 Assessment and Plan - Assessment and Plan (Free Text) Assessment: Pt is a 63 y.o. female with pmhx of HTN, COPD, CHF, CAD w/ stents who presented in ED for RUQ abd pain radiating to R side of back. Per GI, if pt tolerating diet, she can f/u as outpatient. ITS Impressions Abdomen Ultrasound 08/16/18 17:02 IMPRESSION: Echogenic liver may be seen in setting of hepatic parenchymal disease or fatty infiltration. Chest X-Ray 08/16/18 19:32 IMPRESSION: Patchy infiltrate in the right lower lobe Lumbar Spine MRI 08/17/18 14:16 IMPRESSION: L4-5.There is a large central disc herniation which produces severe stenosis and compression of the thecal sac. L5-S1. Large left paracentral disc herniation which compresses the thecal sac and left S1 nerve root Thoracic Spine MRI 08/17/18 14:16 IMPRESSION: Hip MRI 08/17/18 14:19 IMPRESSION: Liver CT 08/18/18 10:53 IMPRESSION: No acute intra-abdominal findings Plan: Pain management Physical Therapy Ortho, GI, and Pain management on consult Meds per MAR Will continue to follow
[2018-08-22] MEDS: Sucralfate 1 gm/10 ml Oral Susp UD PO SCH ×4 (07:04→22:29)
[2018-08-22] MEDS: Tiotropium 18 mcg Cap For Inhalation IH SCH (10:09)
[2018-08-22] MEDS: Pantoprazole 40 mg EC Tab PO SCH ×2 (10:09→17:49)
[2018-08-22] MEDS: Aspirin 325 mg EC Tablets PO SCH (10:09)
[2018-08-22] MEDS: Lidocaine 5% Patch TD SCH (10:10)
--- NOTE | 2018-08-22 11:58 | CP.PCM.PN ---
<Herminio Ramirez - Last Filed: 08/22/18 16:53> Subjective - Date & Time of Evaluation Date of Evaluation: 08/22/18 Time of Evaluation: 09:30 - Subjective Subjective: PGY-4 GI Fellow Prog Note Pt sitting in bedside chair when seen this AM. State still with some abd and back pain but stable and tolerating diet. 5 point ROS negative other than stated above Objective - Vital Signs/Intake and Output Vital Signs (last 24 hours): Temp Pulse Resp BP Pulse Ox 97.6 F 71 18 152/66 H 94 L 08/22/18 06:00 08/22/18 10:10 08/22/18 06:00 08/22/18 10:10 08/22/18 06:00 Intake and Output: 08/22/18 08/22/18 06:59 18:59 Intake Total 840 Balance 840 - Medications Medications: Current Medications Acetaminophen (Tylenol 325mg Tab) 650 mg PO PRN PRN PRN Reason: Pain, moderate (4-7) Last Admin: 08/22/18 10:09 Dose: 650 mg Al Hydrox/Mg Hydrox/Simethicone (Maalox Plus 30 Ml) 30 ml PO Q3H PRN PRN Reason: Heartburn Last Admin: 08/21/18 10:24 Dose: 30 ml Aspirin (Ecotrin) 325 mg PO DAILY [facility] Last Admin: 08/22/18 10:09 Dose: 325 mg Clonazepam (Klonopin) 1 mg PO QID [facility]; Protocol Last Admin: 08/22/18 10:09 Dose: 1 mg Diltiazem HCl (Cardizem) 30 mg PO QID [facility] Last Admin: 08/22/18 10:10 Dose: 30 mg Docusate Sodium (Colace) 100 mg PO TID [facility] Last Admin: 08/22/18 10:09 Dose: 100 mg Famotidine (Pepcid) 40 mg PO HS [facility] Last Admin: 08/21/18 21:59 Dose: Not Given Lidocaine (Lidoderm) 1 ea TD DAILY [facility] Last Admin: 08/22/18 10:10 Dose: 1 ea Nitroglycerin (Nitrostat Sl Tab) 0.4 mg SL Q5MIN PRN PRN Reason: Pain, moderate (4-7) Last Admin: 08/17/18 19:31 Dose: 0.4 mg Pantoprazole Sodium (Protonix Ec Tab) 40 mg PO BID [facility] Last Admin: 08/22/18 10:09 Dose: 40 mg Sucralfate (Carafate Oral Susp) 1 gm PO 0630,1130,1630,2200 [facility] Last Admin: 08/22/18 07:04 Dose: Not Given Tiotropium [place] (Spiriva) 18 mcg IH DAILY [facility] Last Admin: 08/22/18 10:09 Dose: 18 mcg - Labs Labs: 08/16/18 17:00 08/16/18 17:00 PT 11.9 SECONDS (9.4-12.5) 08/16/18 17:00 INR 1.04 08/16/18 17:00 APTT 32.5 Seconds (25.1-36.5) 08/16/18 17:00 - Constitutional Appears: Well, No Acute Distress - Head Exam Head Exam: ATRAUMATIC, NORMAL INSPECTION - Eye Exam Eye Exam: EOMI. absent: Scleral icterus - ENT Exam ENT Exam: Mucous Membranes Moist. absent: Mucous Membranes Dry - Respiratory Exam Respiratory Exam: NORMAL BREATHING PATTERN. absent: Accessory Muscle Use, Respiratory Distress - GI/Abdominal Exam GI & Abdominal Exam: Soft, Normal Bowel Sounds, Pulsatile Mass. absent: Bruit, Distended, Firm, Guarding, Rigid, Tenderness, Mass, Organomegaly Assessment and Plan - Assessment and Plan (Free Text) Assessment: 63 yo WF with Anxiety, CAD, h/o PUD presenting with abd pain # Abnormal Esophageal Mucosa: Seen on EGD 08/20/18. Possible short seg Martínez's at distal esophagus, but the remainder of esophagus had diffuse superficial peeling of mucosa in linear pattern. Possible ayleen? Unlikely the cause of patient's abd pain. # PUD: Multiple shallow ulcers seen in antrum. Perhaps is contributing to symptoms. # T9-10 Radiculopathy on R side: likely contributing to RUQ pain. Plan: - F/u EGD path results from 08/20/18 - Cont PPI, should try to wean off or lower dose, can be done as outpatient - ASA 81 mg if OK with cardiology (pt is on 325 mg) given PUD seen - H2RA PRN - Nystatin swish and swallow 5 mL QID x 2 weeks - Carafate, avoid administering around other medicine by 2 hours - Soft diet Pt discussed with Dr. Liao; please see attestation for further recs. <Ryan Liao V - Last Filed: 08/22/18 18:06> Objective - Vital Signs/Intake and Output Vital Signs (last 24 hours): Temp Pulse Resp BP Pulse Ox 98.7 F 81 20 141/86 95 08/22/18 14:00 08/22/18 17:49 08/22/18 14:00 08/22/18 17:49 08/22/18 14:00 Intake and Output: 08/22/18 08/22/18 06:59 18:59 Intake Total 840 Balance 840 - Medications Medications: Current Medications Acetaminophen (Tylenol 325mg Tab) 650 mg PO PRN PRN PRN Reason: Pain, moderate (4-7) Last Admin: 08/22/18 17:49 Dose: 650 mg Aspirin (Ecotrin) 325 mg PO DAILY [facility] Last Admin: 08/22/18 10:09 Dose: 325 mg Clonazepam (Klonopin) 1 mg PO QID [facility]; Protocol Last Admin: 08/22/18 17:50 Dose: 1 mg Diltiazem HCl (Cardizem) 30 mg PO QID [facility] Last Admin: 08/22/18 17:49 Dose: 30 mg Docusate Sodium (Colace) 100 mg PO TID [facility] Last Admin: 08/22/18 17:50 Dose: 100 mg Famotidine (Pepcid) 40 mg PO HS [facility] Last Admin: 08/21/18 21:59 Dose: Not Given Lidocaine (Lidoderm) 1 ea TD DAILY [facility] Last Admin: 08/22/18 10:10 Dose: 1 ea Nitroglycerin (Nitrostat Sl Tab) 0.4 mg SL Q5MIN PRN PRN Reason: Pain, moderate (4-7) Last Admin: 08/17/18 19:31 Dose: 0.4 mg Nystatin (Nystatin Oral Susp) 5 ml PO QID [facility] Stop: 10/07/18 18:00 Last Admin: 08/22/18 17:50 Dose: 5 ml Pantoprazole Sodium (Protonix Ec Tab) 40 mg PO BID [facility] Last Admin: 08/22/18 17:49 Dose: 40 mg Sucralfate (Carafate Oral Susp) 1 gm PO 0630,1130,1630,2200 [facility] Tiotropium [place] (Spiriva) 18 mcg IH DAILY [facility] Last Admin: 08/22/18 10:09 Dose: 18 mcg - Labs Labs: 08/16/18 17:00 08/16/18 17:00 PT 11.9 SECONDS (9.4-12.5) 08/16/18 17:00 INR 1.04 08/16/18 17:00 APTT 32.5 Seconds (25.1-36.5) 08/16/18 17:00 Attending/Attestation - Attestation I have personally seen and examined this patient.: Yes I have fully participated in the care of the patient.: Yes I have reviewed all pertinent clinical information, including history, physical exam and plan: Yes Notes (Text): This is an addendum to GI progress report dictated by the GI Fellow. The patient was seen and examined earlier. Medical records, lab studies, imagings were reviewed. Last 24 hours events reviewed. Agreed with the above treatment plan as outlined in GI Fellow 's notes with the addition of the following Patient still complains of right upper quadrant pain. CT liver protocol was reviewed. Liver and pancreas that are normal pathology still pending would recommend to continue soft diet to chewwell In addition to gastric ulcers, esophagitis gastroparesis should also be coidered in the differential diagnosis. In view of multilevel disc lesions radiculopathy should be considered in the differential diagnosis. Patient does complain of girdle-like pain radiating from epigastric area around to the back. Discussed with the patient at length and also discussed with Dr. Neftaly Wei
[2018-08-22] MEDS: Nystatin 100,000 Units/ml Oral Susp 5 ml UD PO SCH ×2 (17:50→22:29)
[2018-08-22 23:18] VITALS: TEMP 97.4
[2018-08-23] MEDS: Sucralfate 1 gm/10 ml Oral Susp UD PO SCH ×2 (07:05→12:28)
[2018-08-23 08:13] LABS: HEMOGLOBIN 13.9 g/dL (12.0-16.0); MEAN CELL VOLUME 99.5 fl (80.0-105.0); MEAN CORPUSCULAR HEMOGLOBIN 31.4 pg (25.0-35.0); MEAN CORPUSCULAR HGB CONC 31.6 g/dl (31.0-37.0); MEAN PLATELET VOLUME 9.3 fl (7.0-11.0); RBC 4.42 10^6/uL (3.5-6.1); RED CELL DISTRIBUTION WIDTH 15.3 % (11.5-14.5); WHITE BLOOD COUNT 7.2 10^3/uL (4.5-11.0)
[2018-08-23 08:33] LABS: ALB/GLOB RATIO 1.1 (1.1-1.8); ALBUMIN 4.4 g/dL (3.0-4.8); ALT/SGPT 34 U/L (7-56); AST/SGOT 26 U/L (14-36); BLOOD UREA NITROGEN 12 mg/dL (7-21); CALCIUM 9.1 mg/dL (8.4-10.5); GFR NON-AFRICAN AMERICAN > 60
[2018-08-23 09:18] VITALS: BP 179/95; PULSE 69; RESP 18; O2SAT 93
[2018-08-23] MEDS: Tiotropium 18 mcg Cap For Inhalation IH SCH (10:23)
[2018-08-23] MEDS: Pantoprazole 40 mg EC Tab PO SCH (10:24)
[2018-08-23] MEDS: Nystatin 100,000 Units/ml Oral Susp 5 ml UD PO SCH (10:26)
[2018-08-23] MEDS: Lidocaine 5% Patch TD SCH (10:26)
[2018-08-23] MEDS: Aspirin 325 mg EC Tablets PO SCH (10:27)
--- NOTE | 2018-08-23 15:01 | CON ---
DATE: 08/23/2018 REQUESTING PHYSICIAN: Neftaly Wei MD LOCATION: Room 577, bed 1. CHIEF COMPLAINT: Mid back pain that wraps around her right rib cage and low back pain and right hip pain. HISTORY OF PRESENT ILLNESS: Ms. Weiner is a pleasant 63-year-old female who presented to [facility] emergency room complaining of severe right upper quadrant pain. The patient stated that the pain wraps around her right rib cage and goes to the right upper quadrant and wraps around to the mid back. She also complaints of chronic low back pain over the years, but the right rib cage pain is recent and is being getting worse. She also complains of right hip pain which is treated by Dr. Chappell, who recommended possible hip replacement. Her visual analog scale on today's evaluation is 5/10. The patient is currently taking Tylenol. She is allergic to too many medications and she is afraid to take other medication. Her low back radiates down to bilateral lower extremity. She also mentioned that she had a history of left foot drop that was resolved. PAST MEDICAL HISTORY: Osteoarthritis, congestive heart failure, coronary artery disease status post 9 stents placed, depression and anxiety, gastroesophageal reflux. SOCIAL HISTORY: She is nonsmoker, non alcoholic. ALLERGIES: THE PATIENT HAS KNOWN ALLERGY TO MULTIPLE MEDICATIONS INCLUDING EPINEPHRINE, BENADRYL, ANTI-INFLAMMATORIES, ATIVAN, CODEINE, MORPHINE, OXYCONTIN, PERCOCET, VALIUM, XANAX. MEDICATIONS: Currently, the patient is taking Tylenol 650 mg as needed, Cardizem 30 mg four times a day, pantoprazole 40 mg twice a day, Spiriva, Clonopin 1 mg 4 times a day, nitroglycerine sublingual. REVIEW OF SYSTEMS: A 14-point review of systems is negative unless otherwise mentioned in history of present illness. PHYSICAL EXAMINATION: VITAL SIGNS: She is afebrile. Vital signs are stable. HEENT: Head is normocephalic atraumatic. Eyes; PERRLA. NECK: Supple. No thyromegaly. No lymphadenopathy. No jugular venous distention. LUNGS: Clear to auscultation bilaterally. HEART: Regular. S1, S2 is normal. ABDOMEN: Soft, nontender, nondistended. NEUROMUSCULAR: She is alert, awake and oriented x3. Concentrates very well. Cranial nerves II-XII are grossly intact. is grossly intact. There is tenderness over lower thoracic spine and right thoracic paraspinal area. There is mild discomfort and mild tenderness over lower lumbar spine and bilateral lumbar paraspinous. Trace leg raise and trace low back pain. Sensation to light touch is impaired on left L5 dermatome. Gait is antalgic using straight cane with slight length secondary to her right hip pain. Range of motion of the right hip is limited secondary to pain. RADIOLOGIC STUDIES: MRI of thoracic spine showed large disc herniation T9-T10 with moderate spinal canal stenosis slightly to the right side with right-sided foraminal stenosis. MRI of lumbar spine showed L4-L5 large central disc herniation with severe stenosis, L5-S1 large left paracentral disc herniation, compression of left S1 nerve root. Right hip MRI showed severe degenerative changes in the right hip with joint space narrowing and subchondral cyst. IMPRESSION: 1. Thoracic pain secondary to thoracic disc herniation T9-T10 with thoracic radiculitis. 2. Low back pain secondary to lumbar herniated disc L4-L5, L5-S1 with spinal stenosis and lumbar radiculopathy. RECOMMENDATIONS: Discussed with the patient in detail regarding the treatment plan. At this time, the patient is allergic to many medications and she is afraid to take other medication. So, she will continue with Tylenol as needed. I recommended gabapentin for her and she is afraid to proceed. Upon discharge, the patient can follow up as an outpatient and she will benefit from outpatient physical therapy course. If no improvement, she will be a candidate for thoracic and lumbar epidural steroid injection to start with, and based on her response, we will decide further management. Josh Campo MD
--- NOTE | 2018-08-23 23:25 | DS ---
HISTORY OF PRESENT ILLNESS: This is a 63-year-old woman with a very difficult and complex case dating back to many years of anxiety, depression, and making her very needy and the patient is requesting in need of large amount of time with long list of questions and concerns. She also has a history of multiple medication intolerances. She also has a history of coronary artery disease with recent stent placement. She presented to the emergency room with abdominal pain and chest wall pain. Initially, workup was unremarkable including labs, x-rays, and CT scan of the abdomen. Her pain persisted, it was radicular in nature radiating to the right side. An MRI of thoracic spine showed disk herniation with nerve involvement. During the course of the patient's hospital stay, the patient was seen by her electronic page makeup system operator and then later by GI and later by pain management. She had improved clinically. She surprisingly was able to tolerate some medications for pain and agreed to follow up with Dr. Campo for possible epidural injection at the trigger point of the pain. She was comfortable and ready for discharge to home today, , 08/23/2018. She will follow up with Dr. Neftaly Wei in the office as well as with her electronic page makeup system operator, Dr. Robbins; GI, Dr. Liao, and pain management, Dr. Campo. FINAL DISCHARGE DIAGNOSES: 1. Herniated thoracic disk with right-sided radicular pain. 2. Abdominal pain. 3. Coronary artery disease. 4. Generalized anxiety disorder. 5. Depression. 6. Multiple medication sensitivities/intolerances. Todd Wei MD
== END 2018-08-23 14:48 | disposition home or self-care (01) | DRG 552 ==
LOC: ED 16:26 → ERH 19:00 → 2RNO 08-17 00:38 → 5RSO 08-19 21:18 → OBSVTOIN 08-20 13:12
PROVIDERS: ADMIT Internal Medicine; ATTEND Internal Medicine
PROC: 0DB58ZX Excision of Esophagus, Via Natural or Artificial Opening Endoscopic, Diagnostic (ICD-10-PCS; 2018-08-20)
PROC: 0DB68ZX Excision of Stomach, Via Natural or Artificial Opening Endoscopic, Diagnostic (ICD-10-PCS; principal; 2018-08-20 15:45)
DX: M51.14 Intervertebral disc disorders with radiculopathy, thoracic region (principal); R44.3 Hallucinations, unspecified; M51.16 Intervertebral disc disorders with radiculopathy, lumbar region; K25.9 Gastric ulcer, unspecified as acute or chronic, without hemorrhage or perforation; K29.50 Unspecified chronic gastritis without bleeding; K44.9 Diaphragmatic hernia without obstruction or gangrene; K22.70 Barrett's esophagus without dysplasia; I11.0 Hypertensive heart disease with heart failure; I50.9 Heart failure, unspecified; I25.10 Atherosclerotic heart disease of native coronary artery without angina pectoris; J44.9 Chronic obstructive pulmonary disease, unspecified; M16.11 Unilateral primary osteoarthritis, right hip; K76.0 Fatty (change of) liver, not elsewhere classified; M48.061 Spinal stenosis, lumbar region without neurogenic claudication; K21.9 Gastro-esophageal reflux disease without esophagitis; F41.0 Panic disorder [episodic paroxysmal anxiety]; F32.9 Major depressive disorder, single episode, unspecified; F41.1 Generalized anxiety disorder; K59.00 Constipation, unspecified; R41.0 Disorientation, unspecified; R42 Dizziness and giddiness; E66.01 Morbid (severe) obesity due to excess calories; Z68.36 Body mass index [BMI] 36.0-36.9, adult; Z87.891 Personal history of nicotine dependence; Z95.5 Presence of coronary angioplasty implant and graft; Z87.11 Personal history of peptic ulcer disease

== ENCOUNTER 2018-09-03 18:01 | Emergency (ER) | payer MEDICARE ==
[2018-09-03 18:35] VITALS: RESP 18; TEMP 98.1; BMI 31.4
[2018-09-03 18:49] LABS: BASO # 0.02 K/mm3 (0.0-2.0); BASO % 0.2 % (0.0-3.0); EOS # 0.1 (0.0-0.7); EOS % 1.5 % (1.5-5.0); GRAN # 4.85 (1.4-6.5); GRAN % 54.8 % (50.0-68.0); HEMOGLOBIN 14.7 g/dL (12.0-16.0); LYMPH # 3.4 (1.2-3.4); MEAN CELL VOLUME 98.5 fl (80.0-105.0); MEAN CORPUSCULAR HGB CONC 32.5 g/dl (31.0-37.0); MEAN PLATELET VOLUME 9.4 fl (7.0-11.0); MONO # 0.5 (0.1-0.6); MONO % 5.5 % (1.0-6.0); RBC 4.6 10^6/uL (3.5-6.1); RED CELL DISTRIBUTION WIDTH 15.1 % (11.5-14.5); WHITE BLOOD COUNT 8.9 10^3/uL (4.5-11.0)
[2018-09-03 18:54] LABS: ALB/GLOB RATIO 1.1 (1.1-1.8); ALBUMIN 4.4 g/dL (3.0-4.8); BLOOD UREA NITROGEN 13 mg/dL (7-21); CALCIUM 9.3 mg/dL (8.4-10.5); GFR NON-AFRICAN AMERICAN > 60
[2018-09-03 18:56] LABS: ALT/SGPT 32 U/L (7-56); AST/SGOT 29 U/L (14-36)
[2018-09-03 19:07] LABS: B-TYPE NATRIURETIC PEPTIDE 913 pg/mL (0-450); TROPONIN I < 0.01 ng/mL
[2018-09-03 19:26] LABS: T3 1.11 ng/mL (0.97-1.69)
[2018-09-03] MEDS ORDERED: Alum-Mag Hydrox-Simethicone Susp (30 mL) PO STA (19:52)
--- NOTE | 2018-09-03 20:11 | CARD ---
APPROVED REPORT Date of service: 09/03/2018 EKG Measurement Heart [id number] <Conclusion> Sinus rhythm with occasional and consecutive premature ventricular complexes Biatrial enlargement Prolonged QT CPT ectoppy persists, R wave has improved in lead V3 Abnormal ECG
[2018-09-03 21:21] VITALS: BP 132/71; PULSE 70; O2SAT 98
--- NOTE | 2018-09-03 21:27 | ED PDOC ---
Arrival/HPI - General Chief Complaint: Medical Clearance Time Seen by Provider: 09/03/18 18:06 Historian: Patient - History of Present Illness Narrative History of Present Illness (Text): 09/03/18 21:22 63 year old female, whose past medical history includes chronic back pain, and anxiety, presents to the emergency department by EMS from her pain management clinic. Patient states she received IM toradol at the clinic. EMS states patient's heart rate was noted to be in the 30's. Upon arrival patient's heart rate is noted to be in the 80's and 90's. Patient states she feels anxious. Patient denies any pain. Patient denies any fever, chills, chest pain, shortness of breath, abdominal pain, nausea, vomiting, diarrhea, back pain, neck pain, or any other complaints. Time/Duration: Prior to Arrival Symptom Onset: Gradual Symptom Course: Unchanged Activities at Onset: Light Past Medical History - Provider Review Nursing Documentation Reviewed: Yes - Infectious Disease Hx of Infectious Diseases: None - Tetanus Immunization Tetanus Immunization: Unknown - Cardiac Hx Cardiac Disorders: Yes (chest pain, cad) Hx Congestive Heart Failure: Yes (03-21-15) - Pulmonary Hx Respiratory Disorders: Yes Hx Chronic Obstructive Pulmonary Disease (COPD): Yes - Neurological Hx Neurological Disorder: No - HEENT Hx HEENT Disorder: Yes (WEARS RX GLASSES) - Renal Hx Renal Disorder: No - Endocrine/Metabolic Hx Endocrine Disorders: No - Hematological/Oncological Hx Blood Disorders: No Hx Blood Transfusions: (UNKNOWN) Hx Blood Transfusion Reaction: (UNKNOWN) - Integumentary Hx Dermatological Disorder: Yes Other/Comment: redness to ble cause unknown as pr pt, ble dry skin and multiple skin discolorations, abrasion 1cm round right knee, needs to see dr cummings to have toenails cut due to decreased rom due to r hip arthritis - Musculoskeletal/Rheumatological Hx Musculoskeletal Disorders: No - Gastrointestinal Hx Gastrointestinal Disorders: Yes (hx nausea, bloating) Hx Gastroesophageal Reflux: Yes Other/Comment: obesity, egd/colonoscopy 03/25/15 dx gastritis r/o celiac r/o h pylori, diverticulosis, hemorrhoids - Genitourinary/Gynecological Hx Genitourinary Disorders: No - Psychiatric Hx Psychophysiologic Disorder: Yes (SMOKED CIGARETTES quit 3 years ago) Hx Anxiety: Yes Hx Depression: Yes Hx Panic Disorder: Yes Hx Substance Use: No Other/Comment: hx talk therapy - Surgical History Hx Cardiac Catheterization: Yes Hx Coronary Stent: Yes (9 stents) Other/Comment: exp lap colonoscopy, endo - Anesthesia Hx Anesthesia Reactions: No (LOW BP) Hx Malignant Hyperthermia: No - Suicidal Assessment Feels Threatened In Home Enviroment: No Family/Social History - Physician Review Nursing Documentation Reviewed: Yes Family/Social History: No Known Family HX Smoking Status: Former Smoker Hx Alcohol Use: No Hx Substance Use: No Hx Substance Use Treatment: No Allergies/Home Meds Allergies/Adverse Reactions: Allergies epinephrine Allergy (Verified 08/16/18 16:37) ANAPHYLAXIS diphenhydramine [From Benadryl] Adverse Reaction (Verified 08/16/18 16:37) RASH weakness, hives,as per pt. "not tolerated well" antiinflammatories Adverse Reaction (Uncoded 08/16/18 16:37) told not to take antinflammatories as per pt pt stated " My geothermal hvac technician, Dr Robbins, told me not to take antiinflammatories because they can affect a womens heart in a bad way." ativan Adverse Reaction (Uncoded 08/16/18 16:37) pt stated "makes me feel energetic" pt stated "med not tolerated well" codeine Adverse Reaction (Uncoded 08/16/18 16:37) feel like "passing out" pt stated feel like "passing out" stated pt. Pt stated med "not tolerated well". morphine Adverse Reaction (Uncoded 08/16/18 16:37) feel like "passing out" stated pt Pt stated "med not tolerated well" oxycontin Adverse Reaction (Uncoded 08/16/18 16:37) feel like "passing out" pt stated pt stated " med not tolerated well" percocet Adverse Reaction (Uncoded 08/16/18 16:37) pt stated " feel like passing out" post cardiac stent after having various pain killers pt took a percocet coded 2011 and wound up in icu as per pt. Pt stated med "not tolerated well" valium Adverse Reaction (Uncoded 08/16/18 16:37) "crying and depressed" pt stated Pt stated med "not tolerated well" xanax Adverse Reaction (Uncoded 08/16/18 16:37) pt stated "makes me feel energetic" Pt stated med "not tolerated well" Home Medications: Home Meds Medication Instructions Recorded Confirmed Acetaminophen [Tylenol] 650 mg PO PRN PRN 07/29/14 09/03/18 diltiaZEM [Cardizem] 30 mg PO QID 02/06/15 09/03/18 Pantoprazole Sodium [Protonix] 40 mg PO BID 03/25/15 09/03/18 Tiotropium [Spiriva] 18 mcg IH DAILY 03/25/15 09/03/18 Clonazepam [Klonopin] 1 mg PO QAM 11/04/17 09/03/18 Clonazepam [Klonopin] 3 mg PO HS 11/04/17 09/03/18 Nitroglycerin [Nitrostat SL Tab] 0.4 mg SL Q5MIN PRN 12/20/17 09/03/18 Review of Systems - Physician Review All systems were reviewed & negative as marked: Yes - Review of Systems Constitutional: absent: Fevers, Night Sweats Respiratory: absent: SOB Cardiovascular: absent: Chest Pain Gastrointestinal: absent: Abdominal Pain, Diarrhea, Nausea, Vomiting Musculoskeletal: absent: Back Pain, Neck Pain Psychiatric: Anxiety Physical Exam Vital Signs Reviewed: Yes Vital Signs Temp Pulse Resp BP Pulse Ox 09/03/18 20:30 70 18 132/71 98 09/03/18 18:20 98.1 F 69 18 141/56 L 96 Temperature: Afebrile Blood Pressure: Hypotensive Pulse: Regular Respiratory Rate: Normal Appearance: Positive for: Well-Appearing, Non-Toxic, Comfortable Pain Distress: None Mental Status: Positive for: Alert and Oriented X 3 - Systems Exam Head: Present: Atraumatic, Normocephalic Pupils: Present: PERRL Extroacular Muscles: Present: EOMI Conjunctiva: Present: Normal Mouth: Present: Moist Mucous Membranes Neck: Present: Normal Range of Motion Respiratory/Chest: Present: Clear to Auscultation, Good Air Exchange. No: Respiratory Distress, Accessory Muscle Use Cardiovascular: Present: Regular Rate and Rhythm, Normal S1, S2. No: Murmurs Abdomen: No: Tenderness, Distention, Peritoneal Signs Back: Present: Normal Inspection Upper Extremity: Present: Normal Inspection. No: Cyanosis, Edema Lower Extremity: Present: Normal Inspection. No: Edema Neurological: Present: GCS=15, CN II-XII Intact, Speech Normal Skin: Present: Warm, Dry, Normal Color. No: Rashes Psychiatric: Present: Alert, Oriented x 3, Normal Insight, Normal Concentration Medical Decision Making ED Course and Treatment: 09/03/18 21:28 Impression: 63 year old female presents with bradycardia, and anxiety. ED Course: -- EKG -- Chest X-ray -- Maalox Progress notes: EKG Reviewed by me, shows: Normal sinus rhythm @ 96bpm Normal axis, Normal intervals 09/03/18 21:[address] Jorge Wei, in the ER, who saw the patient. Agrees that patient should be cleared for discharge and will follow up in his office in 1-2 days. - Lab Interpretations Lab Results: Troponin I < 0.01 ng/mL 09/03/18 18:30 NT-Pro-B Natriuret Pep 913 pg/mL (0-450) H 09/03/18 18:30 Total Bilirubin 0.4 mg/dL (0.2-1.3) 09/03/18 18:30 AST 29 U/L (14-36) 09/03/18 18:30 ALT 32 U/L (7-56) 09/03/18 18:30 Alkaline Phosphatase 92 U/L (38-126) 09/03/18 18:30 Total Protein 8.5 g/dL (5.8-8.3) H 09/03/18 18:30 Albumin 4.4 g/dL (3.0-4.8) 09/03/18 18:30 Globulin 4.1 gm/dL 09/03/18 18:30 Albumin/Globulin Ratio 1.1 (1.1-1.8) 09/03/18 18:30 - RAD Interpretation Radiology Orders: 09/03/18 18:28 CHEST PORTABLE [RAD] Stat - Medication Orders Current Medication Orders: Discontinued Medications Al Hydrox/Mg Hydrox/Simethicone (Maalox Plus 30 Ml) 30 ml PO STAT STA Stop: 09/03/18 19:53 - Scribe Statement The provider has reviewed the documentation as recorded by the Scribe Nicholas Reese All medical record entries made by the Scribe were at my direction and per sonally dictated by me. I have reviewed the chart and agree that the record accurately reflects my personal performance of the history, physical exam, medical decision making, and the department course for this patient. I have also personally directed, reviewed, and agree with the discharge instructions and disposition. Disposition/Present on Arrival - Present on Arrival Any Indicators Present on Arrival: No History of DVT/PE: No History of Uncontrolled Diabetes: No Urinary Catheter: No History of Decub. Ulcer: No History Surgical Site Infection Following: None - Disposition Have Diagnosis and Disposition been Completed?: Yes Diagnosis: Anxiety Disposition: HOME/ ROUTINE Disposition Time: 19:20 Condition: GOOD Discharge Instructions (ExitCare): Anxiety, Adult (DC) Additional Instructions: CHRIS GALARZA, thank you for letting us take care of you today. The emergency medical care you received today was directed at your acute symptoms. If you were prescribed any medication, please fill it and take as directed. It may take several days for your symptoms to resolve. Return to the Emergency Department if your symptoms worsen, do not improve, or if you have any other problems. Please contact your doctor or call one of the physicians/clinics you have been referred to that are listed on the Patient Visit Information form that is included in your discharge packet. Bring any paperwork you were given at discharge with you along with any medications you are taking to your follow up visit. Our treatment cannot replace ongoing medical care by a primary care provider outside of the emergency department. Thank you for allowing the [facility] team to be part of your care today. Follow up with your primary care doctor in 2-3 days for re-evaluation and further management. Referrals: Neftaly eWi MD [Primary Care Provider] - Follow up with primary Forms: [employer] (Swedish)
--- NOTE | 2018-09-04 07:19 | RAD ---
Date of service: 09/03/2018 HISTORY: r/o infiltrate COMPARISON: 08/16/2018 FINDINGS: LUNGS: No active pulmonary disease. PLEURA: No significant pleural effusion identified, no pneumothorax apparent. CARDIOVASCULAR: No aortic atherosclerotic calcification present. Mild cardiomegaly mild vascular congestion OSSEOUS STRUCTURES: No significant abnormalities. VISUALIZED UPPER ABDOMEN: Normal. OTHER FINDINGS: None. IMPRESSION: Mild cardiomegaly and mild vascular congestion
== END 2018-09-03 20:30 | disposition home or self-care (01) ==
LOC: ED 18:01
DX: F41.9 Anxiety disorder, unspecified (principal); I25.10 Atherosclerotic heart disease of native coronary artery without angina pectoris; I50.9 Heart failure, unspecified; J44.9 Chronic obstructive pulmonary disease, unspecified; Z95.5 Presence of coronary angioplasty implant and graft; Z87.891 Personal history of nicotine dependence

== ENCOUNTER → 2018-09-20 | Day surgery (SDC) | payer MEDICARE ==
[~2018-09-20] MED LIST: Bacitracin 500 Units/gm Oint Foilpak UD ONE; Iohexol 240 (50 ml) ONE; Lidocaine 1% Inj (20ml) ONE; Sodium Bicarbonate (8.4%) 50 Meq Syringe IVP ONE; Sodium Chloride 0.9% 10 ML IV ONE; Triamcinolone Acetonide 40 mg/mL Inj ONE
[2018-09-20 15:36] VITALS: BMI 36.3
[2018-09-20 16:36] VITALS: RESP 20; O2SAT 97
[2018-09-20 17:41] VITALS: BP 169/88; PULSE 86; TEMP 97.7
--- NOTE | 2018-09-21 04:09 | OP ---
PROCEDURE DATE: 09/20/2018 TYPE OF SURGERY: Thoracic epidural steroid injection at T9-T10 under fluoroscopic guidance. PREOPERATIVE DIAGNOSES: 1. Thoracic pain. 2. Thoracic radiculitis. POSTOPERATIVE DIAGNOSES: 1. Thoracic pain. 2. Thoracic radiculitis. TYPE OF ANESTHESIA: Local anesthesia only. SURGEON: Josh Campo MD ANESTHESIOLOGIST: None applicable. BLOOD LOSS: None. METHOD OF SURGERY: The patient signed an informed consent form in the preop area after all risks and complications were explained and all questions were answered. IV was not started. Blood pressure, heart rate, and pulse oximetry were monitored throughout the procedure. The patient was prepped and draped in a sterile fashion in the prone position. The patient's spine was surveyed under fluoroscopic guidance, and appropriate landmarks were identified. THORACIC EPIDURAL STEROID INJECTION AT T9-T10 UNDER FLUOROSCOPIC GUIDANCE: The soft tissue overlying left T10 lamina was infiltrated with 1% lidocaine without epinephrine and mixed with sodium bicarbonate as a buffer using 25-gauge 1.5-inch needle and 25-gauge 3.5-inch spinal needle for deeper tissues. An 18-gauge Tuohy epidural needle was inserted through anesthetized tract of tissue down to the left T10 lamina, and it was worked off the superior aspect of the lamina into the T9-T10 epidural space. The needle was advanced through ligamentum flavum, and epidural space was identified by loss of resistance technique. After negative aspiration for cerebrospinal fluid or blood, 1 mL volume of Omnipaque 240 was injected, and normal thoracic epidurogram was obtained. Following this, a mixture of 6 mL of 2 mL lidocaine 1% without epinephrine, 2 mL of normal saline and 2 mL of Kenalog 40 mg/mL was injected. The Tuohy needle was removed leaving a trail of lidocaine in its wick. THORACIC EPIDUROGRAM AND SPOT FILM: After Omnipaque was injected into the T9-T10 epidural space, a normal thoracic epidurogram was obtained, and a spot film was obtained to confirm the needle placement and normal thoracic epidurogram. The patient tolerated the procedure very well and was in good condition at the conclusion of the procedure. COMPLICATIONS: None. DISPOSITION: 1. The patient was discharged to same day surgery in good condition. 2. Discharge instructions provided and explained. 3. Call for any questions or concerns. 4. Apply ice to the injection site. Keep clean and dry for 24 hours. 5. The patient to follow up as an outpatient in two weeks. Josh Campo MD
--- NOTE | 2018-09-21 11:17 | RAD ---
Date of service: 09/20/2018 PROCEDURE: Fluoro epidural spine injection HISTORY: FLUOROSCOPY GUIDED T.E.S.I. COMPARISON: TECHNIQUE: Fluoroscopy was provided in the operating room. Three images were submitted FINDINGS: The study shows contrast in the epidural space in the lower thoracic spine IMPRESSION: As above
== END | disposition home or self-care (01) ==
LOC: OR 14:58 → SDS 14:58
PROVIDERS: ATTEND Specialist
DX: M54.14 Radiculopathy, thoracic region (principal); I10 Essential (primary) hypertension
CPT/HCPCS: 62321; 72275; J3301; Q9966